=== PATIENT | female | born 1965 | race Caucasian/White ===

== ENCOUNTER 2020-06-19 09:53 | Outpatient (REF) | payer OTHER, SELFPAY ==
--- NOTE | ~2020-06-19 | MM_ITS ---
EXAMINATION: MM SCREENING DIGITAL BREAST TOMOSYNTHESIS, BILATERAL CLINICAL INFORMATION: Screening. Asymptomatic. The lifetime risk of breast cancer based on the Tyrer-Cuzick Model is 17%. COMPARISON: Mammography: 10/01/2018, 07/26/2017, 07/25/2016 TECHNIQUE: Digital breast tomosynthesis is performed in both the craniocaudal and mediolateral oblique views along with computer-aided detection (CAD). Synthesized 2D images are generated from the tomosynthesis. Additional right CC view is provided. FINDINGS: There are scattered areas of fibroglandular density (ACR BI-RADS breast composition Category b). There are no significant masses, abnormal calcifications, or other abnormalities. Breast tissue composition borders on heterogeneously dense in the anterior breasts. The axilla and skin contours are unremarkable. There is biopsy clip marker again noted left breast upper outer quadrant. No significant changes. MM/MM tomosynthesis screening BI IMPRESSION: No mammographic evidence of malignancy. ASSESSMENT: BI-RADS 1: Negative RECOMMENDATION: Routine annual mammography screening. This patient's information was entered into a reminder system with a target due date for their next mammogram.
== END 2020-06-19 09:54 | disposition home or self-care (01) ==
LOC: HO.MAMMO 09:53
PROVIDERS: Visit Provider Internal Medicine
DX: Z12.31 Encounter for screening mammogram for malignant neoplasm of breast (principal)
CPT/HCPCS: 77063; 77067

== ENCOUNTER 2021-06-25 07:57 | Outpatient (REF) | payer OTHER, SELFPAY ==
--- NOTE | ~2021-06-25 | MM_ITS ---
EXAMINATION: MM SCREENING DIGITAL BREAST TOMOSYNTHESIS, BILATERAL CLINICAL INFORMATION: Screening. Asymptomatic. The lifetime risk of breast cancer based on the Tyrer-Cuzick Model is 17.8%. COMPARISON: Mammography: June 19, 2020 and studies dating back to February 17, 2014 TECHNIQUE: Digital breast tomosynthesis is performed in both the craniocaudal and mediolateral oblique views along with computer-aided detection (CAD). Synthesized 2D images are generated from the tomosynthesis. FINDINGS: There are scattered areas of fibroglandular density (ACR BI-RADS breast composition Category b). There are no significant masses, abnormal calcifications, or other abnormalities. MM/MM tomosynthesis screening BI IMPRESSION: There are no significant changes from prior study. ASSESSMENT: BI-RADS 1: Negative RECOMMENDATION: Routine annual mammography screening. This patient's information was entered into a reminder system with a target due date for their next mammogram.
== END 2021-06-25 07:58 | disposition home or self-care (01) ==
LOC: HO.MAMMO 07:57
PROVIDERS: PCP Internal Medicine; Visit Provider Internal Medicine
DX: Z12.31 Encounter for screening mammogram for malignant neoplasm of breast (principal)
CPT/HCPCS: 77063; 77067

== ENCOUNTER 2021-11-09 07:21 | Outpatient (REF) | payer OTHER, SELFPAY ==
[2021-11-09 11:28] LABS: Appearance Urine HAZY; Color Urine YELLOW; Glucose Urine UA NEG (NEG); Leukocyte Esterase Urine NEG (NEG); Nitrite Urine NEG (NEG); Urine Blood NEG (NEG); Urine Ketones NEG (NEG); Urine Protein NEG (NEG-TRACE)
[2021-11-09 11:30] LABS: MANUAL DIFF FLAG NO
[2021-11-09 11:41] LABS: Basophils Absolute Auto 0.1 X10*3/uL (0.0-0.2); Basophils Percent Auto 0.9 % (0-2); Eosinophils Absolute Auto 0.2 X10*3/uL (0.0-0.4); Eosinophils Percent Auto 3.6 % (0-4); Hematocrit 45.2 % (37.0-47.0); Imm Gran Abs Auto 0.01 X10*3/uL (0.00-0.03); Imm Gran Pct Auto 0.2 % (0.0-0.4); Lymphocytes Absolute Auto 1.9 X10*3/uL (1.2-4.9); Lymphocytes Percent Auto 35.8 % (20-40); Mean Corpuscular HGB Conc 33.2 g/dl (31.0-35.0); Mean Corpuscular Volume 93.4 fL (80.0-98.0); Mean Platelet Volume 10.7 fL (9.4-12.3); Monocytes Absolute Auto 0.5 X10*3/uL (0.1-1.2); Monocytes Percent Auto 9.6 % (2-11); Neutrophils Absolute Auto 2.7 x10*3/uL (2.0-8.3); Neutrophils Percent Auto 49.9 % (45-73); Platelet Count 299 X10*3/uL (160-400); Red Blood Count 4.84 X10*6/uL (4.20-5.50); Red Cell Distribution Width 11.7 % (11.0-16.0); White Blood Count 5.3 X10*3/uL (4.8-10.8)
[2021-11-09 11:55] LABS: Mucus Urine 1+ /LPF; RBC Urine 0-2 /HPF (0); Squamous Epithelial Cell Urine 1+ /LPF; WBC Urine 0 /HPF (0-4)
[2021-11-09 14:25] LABS: Thyroid Stimulating Hormone 5.82 uIU/mL (0.32-4.0); Vitamin D 25-OH Total 48.7 ng/mL (>30)
[2021-11-09 14:44] LABS: Alanine Aminotransferase 12 U/L (0-31); Albumin Level 4.2 g/dL (3.5-5.0); Alkaline Phosphatase 68 U/L (39-117); Anion Gap 14 (12-20); Aspartate Amino Transferase 19 U/L (5-31); Bilirubin Total 0.8 mg/dL (0.0-1.0); Blood Urea Nitrogen 16 mg/dL (9-16); Calcium 9.7 mg/dL (8.4-10.2); Carbon Dioxide 30 mmol/L (22-29); Chloride 102 mmol/L (96-108); Cholesterol 206 mg/dL; Estimated Glomerular Filt Rate > 60; Glucose Fasting 115 mg/dL (60-99); HDL Cholesterol 46 mg/dL; LDL Cholesterol Calculated 127 mg/dl; Sodium 142 mmol/L (135-145); Triglycerides 165 mg/dL
== END 2021-11-09 07:22 | disposition home or self-care (01) ==
LOC: HO.HMGCLDS 07:21
PROVIDERS: PCP Internal Medicine; Visit Provider Internal Medicine
DX: Z00.00 Encounter for general adult medical examination without abnormal findings (principal); I10 Essential (primary) hypertension; E78.00 Pure hypercholesterolemia, unspecified; E03.9 Hypothyroidism, unspecified; E55.9 Vitamin D deficiency, unspecified; E66.01 Morbid (severe) obesity due to excess calories
CPT/HCPCS: 36415; 80053; 80061; 81001; 82306; 84443; 85025

== ENCOUNTER 2022-07-01 08:52 | Outpatient (REF) | payer OTHER, SELFPAY ==
--- NOTE | ~2022-07-01 | MM_ITS ---
EXAMINATION: MM SCREENING DIGITAL BREAST TOMOSYNTHESIS, BILATERAL CLINICAL INFORMATION: Screening. Asymptomatic. The lifetime risk of breast cancer based on the Tyrer-Cuzick Model is 16%. COMPARISON: Mammography: 06/25/2021, 06/19/2020, 10/01/2018 TECHNIQUE: Digital breast tomosynthesis is performed in both the craniocaudal and mediolateral oblique views along with computer-aided detection (CAD). Synthesized 2D images are generated from the tomosynthesis. FINDINGS: The breasts are heterogeneously dense, which may obscure small masses (ACR BI-RADS breast composition Category c). Dense breast composition is predominantly anterior breasts. Parenchymal pattern is similar to prior studies and there is no developing density or interval mass or architectural abnormality. No abnormal calcifications. Biopsy clip marker again seen anterior upper outer left breast. The axilla and skin contours are unremarkable. MM/MM tomosynthesis screening BI IMPRESSION: No mammographic evidence of malignancy. ASSESSMENT: BI-RADS 1: Negative RECOMMENDATION: Routine annual mammography screening. This patient's information was entered into a reminder system with a target due date for their next mammogram.
== END 2022-07-01 08:53 | disposition home or self-care (01) ==
LOC: HO.MAMMO 08:52
PROVIDERS: PCP Internal Medicine; Visit Provider Internal Medicine
DX: Z12.31 Encounter for screening mammogram for malignant neoplasm of breast (principal)
CPT/HCPCS: 77063; 77067

== ENCOUNTER 2022-10-02 08:27 | Outpatient (REF) | payer OTHER, SELFPAY ==
[2022-10-02 11:31] LABS: MANUAL DIFF FLAG NO
[2022-10-02 11:43] LABS: Basophils Absolute Auto 0.1 X10*3/uL (0.0-0.2); Eosinophils Absolute Auto 0.4 X10*3/uL (0.0-0.4); Eosinophils Percent Auto 6.3 % (0-4); Hemoglobin 14.8 g/dl (12.0-16.0); Imm Gran Abs Auto 0.02 X10*3/uL (0.00-0.03); Imm Gran Pct Auto 0.3 % (0.0-0.4); Lymphocytes Absolute Auto 2.1 X10*3/uL (1.2-4.9); Mean Corpuscular HGB Conc 32.9 g/dl (31.0-35.0); Mean Corpuscular Hemoglobin 30.3 pg (27.0-33.0); Mean Platelet Volume 10.7 fL (9.4-12.3); Monocytes Absolute Auto 0.5 X10*3/uL (0.1-1.2); Monocytes Percent Auto 8.1 % (2-11); Neutrophils Absolute Auto 3.1 x10*3/uL (2.0-8.3); Neutrophils Percent Auto 50.3 % (45-73); Platelet Count 271 X10*3/uL (160-400); Red Blood Count 4.89 X10*6/uL (4.20-5.50); Red Cell Distribution Width 11.9 % (11.0-16.0); White Blood Count 6.2 X10*3/uL (4.8-10.8)
[2022-10-02 12:13] LABS: Alanine Aminotransferase 10 U/L (0-31); Albumin Level 3.9 g/dL (3.5-5.0); Alkaline Phosphatase 65 U/L (39-117); Anion Gap 12 (12-20); Aspartate Amino Transferase 18 U/L (5-31); Bilirubin Total 0.9 mg/dL (0.0-1.0); Blood Urea Nitrogen 17 mg/dL (9-16); Calcium 9.9 mg/dL (8.4-10.2); Carbon Dioxide 29 mmol/L (22-29); Chloride 104 mmol/L (96-108); Cholesterol 190 mg/dL; Estimated Glomerular Filt Rate > 60; Glucose Fasting 118 mg/dL (60-99); HDL Cholesterol 46 mg/dL; LDL Cholesterol Calculated 113 mg/dl; Potassium 3.9 mmol/L (3.3-5.1); Sodium 141 mmol/L (135-145); Total Protein 6.9 g/dL (6.5-8.0); Triglycerides 159 mg/dL
[2022-10-02 12:31] LABS: Thyroid Stimulating Hormone 2.98 uIU/mL (0.32-4.0); Vitamin D 25-OH Total 75.3 ng/mL (>30)
== END 2022-10-02 08:28 | disposition home or self-care (01) ==
LOC: HO.HMGCLDS 08:27
PROVIDERS: PCP Internal Medicine; Visit Provider Internal Medicine
DX: I10 Essential (primary) hypertension (principal); E78.00 Pure hypercholesterolemia, unspecified; E03.9 Hypothyroidism, unspecified; E55.9 Vitamin D deficiency, unspecified; E66.01 Morbid (severe) obesity due to excess calories
CPT/HCPCS: 36415; 80053; 80061; 82306; 84443; 85025

== ENCOUNTER 2023-07-07 07:56 | Outpatient (REF) | payer OTHER, SELFPAY ==
--- NOTE | ~2023-07-07 | MM_ITS ---
EXAMINATION: MM SCREENING DIGITAL BREAST TOMOSYNTHESIS, BILATERAL CLINICAL INFORMATION: Screening. Asymptomatic. COMPARISON: Mammography: This study is compared with prior exams dating back to 2019. TECHNIQUE: Digital breast tomosynthesis is performed in both the craniocaudal and mediolateral oblique views along with computer-aided detection (CAD). Synthesized 2D images are generated from the tomosynthesis. FINDINGS: The breasts are heterogeneously dense, which may obscure small masses (ACR BI-RADS breast composition Category c). There are no significant masses, abnormal calcifications, or other abnormalities. There is a tissue marker in the lateral aspect of the left breast from prior benign percutaneous biopsy. MM/MM tomosynthesis screening BI IMPRESSION: No mammographic evidence of malignancy. ASSESSMENT: BI-RADS BI-RADS 2 - Benign Findings RECOMMENDATION: Routine annual mammography screening. 1 year F/U This examination should not preclude the clinical evaluation of a suspicious palpable abnormality. This patient's information was entered into a reminder system with a target due date for their next mammogram.
== END 2023-07-07 07:57 | disposition home or self-care (01) ==
LOC: HO.MAMMO 07:56
PROVIDERS: PCP Internal Medicine; Visit Provider Internal Medicine
DX: Z12.31 Encounter for screening mammogram for malignant neoplasm of breast (principal)
CPT/HCPCS: 77063; 77067

== ENCOUNTER → 2023-07-07 08:15 | Outpatient (BNV) | payer OTHER, SELFPAY | PROVIDERS: PCP Internal Medicine; Visit Provider Radiology Diagnostic Radiology | DX: Z12.31 Encounter for screening mammogram for malignant neoplasm of breast (principal) | CPT/HCPCS: 77063; 77067 ==

== ENCOUNTER 2023-11-20 07:54 | Outpatient (REF) | payer SELFPAY ==
[2023-11-20 08:13] LABS: MANUAL DIFF FLAG NO
[2023-11-20 08:55] LABS: Basophils Absolute Auto 0.1 X10*3/uL (0.0-0.2); Basophils Percent Auto 1.2 % (0-2); Eosinophils Absolute Auto 0.5 X10*3/uL (0.0-0.4); Hematocrit 45.2 % (37.0-47.0); Hemoglobin 15.5 g/dl (12.0-16.0); Imm Gran Abs Auto 0.01 X10*3/uL (0.00-0.03); Imm Gran Pct Auto 0.1 % (0.0-0.4); Lymphocytes Absolute Auto 2.2 X10*3/uL (1.2-4.9); Lymphocytes Percent Auto 32.4 % (20-40); Mean Corpuscular HGB Conc 34.3 g/dl (31.0-35.0); Mean Corpuscular Hemoglobin 31.3 pg (27.0-33.0); Mean Corpuscular Volume 91.1 fL (80.0-98.0); Mean Platelet Volume 10.4 fL (9.4-12.3); Monocytes Absolute Auto 0.6 X10*3/uL (0.1-1.2); Monocytes Percent Auto 9.1 % (2-11); Neutrophils Absolute Auto 3.4 x10*3/uL (2.0-8.3); Neutrophils Percent Auto 50.2 % (45-73); Platelet Count 306 X10*3/uL (160-400); Red Blood Count 4.96 X10*6/uL (4.20-5.50); Red Cell Distribution Width 11.7 % (11.0-16.0); White Blood Count 6.7 X10*3/uL (4.8-10.8)
[2023-11-20 09:56] LABS: Alanine Aminotransferase 13 U/L (0-31); Albumin Level 4.3 g/dL (3.5-5.0); Alkaline Phosphatase 81 U/L (39-117); Anion Gap 13 (12-20); Aspartate Amino Transferase 20 U/L (5-31); Bilirubin Total 0.9 mg/dL (0.0-1.0); Blood Urea Nitrogen 16 mg/dL (9-16); Calcium 9.8 mg/dL (8.4-10.2); Carbon Dioxide 30 mmol/L (22-29); Chloride 100 mmol/L (96-108); Cholesterol 201 mg/dL (<200); Estimated Glomerular Filt Rate > 60; Glucose Fasting 156 mg/dL (60-99); HDL Cholesterol 41 mg/dL (>40); LDL Cholesterol Calculated 121 mg/dL (<100); Sodium 140 mmol/L (135-145); Triglycerides 198 mg/dL (<150)
[2023-11-20 10:17] LABS: Thyroid Stimulating Hormone 2.74 uIU/mL (0.32-4.0)
== END 2023-11-20 07:55 | disposition home or self-care (01) ==
LOC: HO.LAB 07:54
PROVIDERS: PCP Internal Medicine; Visit Provider Internal Medicine
DX: I10 Essential (primary) hypertension (principal); E78.00 Pure hypercholesterolemia, unspecified; E03.9 Hypothyroidism, unspecified; E66.01 Morbid (severe) obesity due to excess calories; E55.9 Vitamin D deficiency, unspecified; Z91.09 Other allergy status, other than to drugs and biological substances
CPT/HCPCS: 36415; 80053; 80061; 84443; 85025

== ENCOUNTER 2024-01-19 06:53 | Outpatient (REF) | payer OTHER, SELFPAY ==
[2024-01-19 11:08] LABS: MANUAL DIFF FLAG NO
[2024-01-19 11:10] LABS: Basophils Absolute Auto 0.1 X10*3/uL (0.0-0.2); Basophils Percent Auto 1.5 % (0-2); Eosinophils Absolute Auto 0.4 X10*3/uL (0.0-0.4); Eosinophils Percent Auto 7.4 % (0-4); Hemoglobin 13.6 g/dl (12.0-16.0); Imm Gran Abs Auto 0.01 X10*3/uL (0.00-0.03); Imm Gran Pct Auto 0.2 % (0.0-0.4); Lymphocytes Absolute Auto 1.7 X10*3/uL (1.2-4.9); Lymphocytes Percent Auto 32.3 % (20-40); Mean Corpuscular HGB Conc 33.2 g/dl (31.0-35.0); Mean Corpuscular Hemoglobin 30.6 pg (27.0-33.0); Mean Corpuscular Volume 92.3 fL (80.0-98.0); Mean Platelet Volume 10.6 fL (9.4-12.3); Monocytes Absolute Auto 0.4 X10*3/uL (0.1-1.2); Monocytes Percent Auto 8.1 % (2-11); Neutrophils Absolute Auto 2.7 x10*3/uL (2.0-8.3); Neutrophils Percent Auto 50.5 % (45-73); Platelet Count 266 X10*3/uL (160-400); Red Blood Count 4.44 X10*6/uL (4.20-5.50); Red Cell Distribution Width 11.9 % (11.0-16.0); White Blood Count 5.3 X10*3/uL (4.8-10.8)
[2024-01-19 11:19] LABS: Rheumatoid Factor < 13.0 IU/mL (<15.0)
[2024-01-19 11:22] LABS: Estimated Average Glucose 128 mg/dL; Hemoglobin A1c % 6.1 % (<6.0); Total Hemoglobin (HGBA1C) 3351.9231 umol/L
[2024-01-19 11:26] LABS: Appearance Urine Clear; Color Urine Yellow; Glucose Urine UA Negative (Negative); Leukocyte Esterase Urine Negative (Negative); Nitrite Urine Negative (Negative); Urine Blood Negative (Negative); Urine Ketones Negative (Negative); Urine Protein Negative (Neg-Trace)
[2024-01-19 11:33] LABS: Bacteria Urine None Seen (None Seen); Hyaline Casts Urine 0-2 /LPF (0-2); RBC Urine 0-2 /HPF (0-2); WBC Urine 0-5 /HPF (0-5)
[2024-01-19 11:37] LABS: Alanine Aminotransferase 9 U/L (0-31); Albumin Level 3.7 g/dL (3.5-5.0); Alkaline Phosphatase 66 U/L (39-117); Anion Gap 12 (12-20); Aspartate Amino Transferase 17 U/L (5-31); Bilirubin Total 0.6 mg/dL (0.0-1.0); Blood Urea Nitrogen 12 mg/dL (9-16); C Reactive Protein < 0.10 mg/dL (< or = 0.50); Calcium 9.3 mg/dL (8.4-10.2); Carbon Dioxide 29 mmol/L (22-29); Chloride 105 mmol/L (96-108); Cholesterol 160 mg/dL (<200); Estimated Glomerular Filt Rate > 60; Glucose Fasting 125 mg/dL (60-99); HDL Cholesterol 39 mg/dL (>40); LDL Cholesterol Calculated 98 mg/dL (<100); Potassium 3.1 mmol/L (3.3-5.1); Sodium 143 mmol/L (135-145); Total Protein 6.5 g/dL (6.5-8.0); Triglycerides 115 mg/dL (<150)
[2024-01-19 11:42] LABS: Thyroid Stimulating Hormone 1.73 uIU/mL (0.32-4.0)
[2024-01-19 11:59] LABS: Erythrocyte Sedimentation Rate 7 MM/HR (0-20)
[2024-01-19 12:00] LABS: Creatinine Urine 129.31 mg/dL; Microalbumin Urine < 5.0 mg/L
== END 2024-01-19 06:54 | disposition home or self-care (01) ==
LOC: HO.HMGCLDS 06:53
PROVIDERS: PCP Internal Medicine; Visit Provider Internal Medicine
DX: Z00.00 Encounter for general adult medical examination without abnormal findings (principal); I10 Essential (primary) hypertension; E78.00 Pure hypercholesterolemia, unspecified; E03.9 Hypothyroidism, unspecified; E55.9 Vitamin D deficiency, unspecified; Z91.09 Other allergy status, other than to drugs and biological substances; E66.01 Morbid (severe) obesity due to excess calories
CPT/HCPCS: 36415; 80053; 80061; 81001; 82043; 82306; 82570; 83036; 84443; 85025; 85652; 86140; 86431

== ENCOUNTER 2024-04-15 09:51 | Outpatient (AMB) | payer OTHER, SELFPAY ==
--- NOTE | 2024-04-15 10:26 | AM.OFFWIN_ITS ---
Intake Vital Signs 04/15/24 10:27 Height 5 ft 4 in Weight 266 lb BMI 45.7 BP 100/70 Blood Pressure Location Rt brachial Position Sitting Pulse 96 Pulse Source Pulse Oximeter Temp 98.5 F Temp Source Oral Pulse Oximetry (%) 96 Oxygen Delivery Method Room Air Intake Visit Reasons: EP-rt knee, garcia, ankle pain, lt side neck lump Intake Note: Pt is here today c/o Rt knee pain (no injury noted) x2wks Patient Tobacco Use Status: Never used Tobacco Allergies No Known Allergies Allergy (Verified 04/15/24 10:29) HPI HPI Comments History of Present Illness Details She presents to office with R knee/lower leg pain Saw PCP in January for leg pain bilaterally; negative blood work for rheumatoid arthritis which was negative Has been taking 2 Aleeve BID She said R knee pain since xmas Worse when sitting in car Better with elevated More still in the morning No imaging 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 Diaz in July as a new pt She mentioned a mass that her dentist found on the L side of her neck pprox 4 months ago She denies pain or change in size. She has never noticed it so unsure how long it was present before then Has not had it seen No other associated symptoms PFSH Social History (System 05/19/21 @ 15:19 by Joy Hernandez) Patient Tobacco Use Status: Never used Tobacco Review of Systems Const Denies chills and Denies fever(s) ENT Denies nasal discharge Card Denies chest pain Resp Denies cough Musc Reports arthralgias (R knee with radiation into RLE to ankle), Denies numbness and Denies tingling Skin/Breast Denies rash, Denies skin pain and Denies sores Neuro Denies numbness and Denies tingling Physical Exam Vital Signs: Last Vital Signs Temp 98.5 F 04/15/24 10:27 Pulse 96 04/15/24 10:27 BP 100/70 04/15/24 10:27 Pulse Ox 96 04/15/24 10:27 Oxygen Delivery Method Room Air 04/15/24 10:27 BMI result Body Mass Index 45.7 General: Non-toxic, NAD. Speaking full sentences. Skin: Warm dry throughout Eye: EOMI HENT: Airway patent. Uvula midline. No pharyngeal erythema or edema. 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 One non-tender, non-mobile approx 1cm x 1cm circular hard mass palpated to L side of neck just inferior to mid L mandible. Non-tender. Respiratory: No respiratory distress Cardiac: RRR. No calf tenderness or pitting edema. DP pulse intact RLE MSK: + full ROM L knee with flexion/extendion and no palpable tenderness R knee + tenderness to palpation medial and lateral joint line. + flexion to 90 degrees and full extension. No R ankle tendersss. + full ROM digits R foot without parathesias. Neurology: Alert. No aphasia or facial droop. Gait without abnormality Psych: Good mood and affect Assessment & Plan Assessment & Plan (1) Knee pain: Code(s): M25.569 - Pain in unspecified knee Qualifiers: Chronicity: acute Laterality: right Qualified Code(s): M25.561 - Pain in right knee Plan: Patient seen and evaluated. Xray R knee: arthritis Gave oj wrap Given ortho referral Discussed aleeve filtered through kidneys so caution overuse Rest, ice, elevate Patient gave verbal understanding and had no additional questions or concerns at time of discharge All questions answered (2) Neck mass: Code(s): R22.1 - Localized swelling, mass and lump, neck Plan: Sent note to Dr. Diaz to follow up sooner with pt for most likely needed imaging. Pt aware and will wait for PCP call. Orders: Referrals Orthopedics Referral M25.561 - Pain in right knee Coding Level of Care Code Est Pt Level 3 (29790) Diagnoses Acute pain of right knee M25.561 Chronicity: acute Laterality: right Neck mass R22.1
[2024-04-15 10:27] VITALS: BP 100/70; PULSE 96; TEMP 36.9; O2SAT 96; BMI 45.7
== END 2024-04-15 11:17 | disposition home or self-care (01) ==
PROVIDERS: PCP Internal Medicine; Visit Provider Physician Assistant
DX: M25.561 Pain in right knee (principal); R22.1 Localized swelling, mass and lump, neck

== ENCOUNTER 2024-04-15 09:51 | Outpatient (REF) | payer OTHER, SELFPAY ==
--- NOTE | ~2024-04-15 | XR_ITS ---
EXAMINATION: XR KNEE, RIGHT CLINICAL INFORMATION: M25.569 - Pain in unspecified knee COMPARISON: None available. TECHNIQUE: Four views of the right knee. FINDINGS: There is loss of tricompartment joint space with periarticular spurring in the lateral and patellofemoral compartments. There is no loose body. There is no visible acute fracture, dislocation or subluxation seen. There is no joint effusion. XR/XR knee RT 4V IMPRESSION: Degenerative arthritic changes right knee. No acute fracture or dislocation seen. Electronically signed by: Jesu Phillips MD 04/15/2024 11:59 AM EST
== END 2024-04-15 09:52 | disposition home or self-care (01) ==
LOC: HO.HMGCX 09:51
PROVIDERS: PCP Internal Medicine; Visit Provider Physician Assistant
DX: M25.561 Pain in right knee (principal); R22.1 Localized swelling, mass and lump, neck
CPT/HCPCS: 73564

== ENCOUNTER → 2024-04-15 10:52 | Outpatient (BNV) | payer OTHER, SELFPAY | PROVIDERS: PCP Internal Medicine; Visit Provider Radiology Diagnostic Radiology | DX: M17.11 Unilateral primary osteoarthritis, right knee (principal) | CPT/HCPCS: 73564 ==

== ENCOUNTER 2024-04-22 14:45 | Outpatient (AMB) | payer OTHER, SELFPAY ==
--- NOTE | 2024-04-22 14:52 | A.OFFPC_ITS ---
Vital Signs 04/22/24 15:01 Height 5 ft 3.25 in Weight 268 lb BMI 47.1 BP 120/70 Blood Pressure Location Rt brachial Pulse 84 Pulse Source Pulse Oximeter Temp 97.5 F Pulse Oximetry (%) 96 Intake Visit Reasons: L Submandibular mass Intake Note: here for left submandibular mass and would like tovknow what to try for pain management of the right knee Allergies No Known Allergies Allergy (Verified 04/22/24 15:30) Medication List - Last Reconciled 04/22/24 by Bolivar Katz MD aspirin 81 mg PO DAILY atorvastatin 20 mg PO DAILY cetirizine 10 mg PO DAILY ergocalciferol (vitamin D2) 1,250 mcg PO QWEEK famotidine 20 mg PO DAILY levothyroxine mcg PO montelukast 10 mg PO DAILY multivitamin 1 tab PO DAILY triamterene-hydrochlorothiazid 75-50 mg 1 tab PO DAILY PFSH Medical History (Updated 04/22/24 @ 15:34 by Bolivar Katz MD) Essential hypertension Allergic rhinitis Acquired hypothyroidism Social History Patient Tobacco Use Status: Never used Tobacco Physical exam (Primary Care) Vital Signs: Last Vital Signs Temp 97.5 F 04/22/24 15:01 Pulse 84 04/22/24 15:01 BP 120/70 04/22/24 15:01 Pulse Ox 96 04/22/24 15:01 BMI result Body Mass Index 47.1 Tobacco/Smoking Status: Tobacco use Status Patient Tobacco Use Status Never used Tobacco 04/22/24 14:53 Coding Level of Care Code Est Pt Level 4 (97297) Complex EM visit Add On G2211 Diagnoses Swelling of submandibular gland R60.0 Neck mass R22.1 Essential hypertension I10 Allergic rhinitis J30.9 Acquired hypothyroidism E03.9 Acute pain of right knee M25.561 Chronicity: acute Laterality: right Assessment & Plan Assessment & Plan (1) Swelling of submandibular gland: Code(s): R60.0 - Localized edema Plan: A stat US of the neck has been requested. Further work based on the result. In addition BW has been ordered (2) Neck mass: Code(s): R22.1 - Localized swelling, mass and lump, neck Category: Medical Plan: As above (3) Essential hypertension: Code(s): I10 - Essential (primary) hypertension Category: Medical Plan: Continue medications at same dosage. (4) Allergic rhinitis: Code(s): J30.9 - Allergic rhinitis, unspecified Category: Medical Plan: Continue medications at same dosage. (5) Acquired hypothyroidism: Code(s): E03.9 - Hypothyroidism, unspecified Category: Medical Plan: BW ordered. Continue meds at same dosage. (6) Knee pain: Code(s): M25.569 - Pain in unspecified knee Category: Medical Qualifiers: Chronicity: acute Laterality: right Qualified Code(s): M25.561 - Pain in right knee Plan: X ray images revd. DJD changes noted. Add meloxicam to the regimen. Plan History of Present Illness The patient is a 59-year-old female presenting with a neck mass. She first became aware of the mass approximately five months ago after it was noted by a dental hygienist during a teeth cleaning. The mass is located on the left side of her neck. She reports no associated pain, discomfort, difficulty swallowing, or weight loss. There has been no change in size or symptoms. She delayed seeking medical evaluation, initially addressing other health concerns. The patient has a history of essential hypertension and hyperlipidemia, for which she is on medication, and she is currently undergoing evaluation for knee pain. 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 - No other relevant social determinants of health discussed Review of Systems - Head & Neck: Reports dryness in the mouth, attributed to allergy medications Physical Exam General: Appearance normal, both eyes and all related structures Nutritional Appearance: Well nourished Orientation/consciousness: Patient oriented x3 Limitations: No limitations Head: Normal to inspection Neck: Mass on the left side, normal visual inspection otherwise Chest: Normal palpation of entire chest wall Respiratory: Normal respiratory effort Neurology: Patient oriented x3 Results Plan - Evaluate the neck mass further for possible diagnostic imaging and referral based on initial clinical assessment - Continue current regimen for managing essential hypertension and hyperlipid emia - Address knee pain through appropriate orthopedic consultation or imaging as deemed necessary - Monitor for any changes or progression in the identified neck mass Patient was informed and verbally consented to the use of an ambient scribe for clinic note documentation during this visit. Discussion Notes The patient and I discussed the current findings regarding the neck mass. I explained that despite the lack of symptomatic activity such as pain or weight loss, further evaluation, possibly including imaging, may be needed for a definitive diagnosis. We agreed to continue management of her hypertension and hyperlipidemia with her current medication regimen. I informed her that further assessment of her knee pain would occur as needed, potentially involving imaging or an orthopedic referral. She understood the plan and agreed to proceed with the outlined steps. Patient Instructions - Monitor for any changes in size or symptoms of the neck mass - Continue taking medications as prescribed for hypertension and hyperlipidemia - Report any new symptoms or changes, particularly with knee pain - Follow up as needed based on any changes or new symptoms Orders: Orders US soft tiss head and/or neck Today R60.0 - Localized edema
[2024-04-22 15:01] VITALS: BP 120/70; PULSE 84; TEMP 36.4; O2SAT 96; BMI 47.1
== END 2024-04-22 15:25 | disposition home or self-care (01) ==
LOC: HO.HMCSH 14:45
PROVIDERS: PCP Internal Medicine; Visit Provider Internal Medicine
DX: R22.1 Localized swelling, mass and lump, neck (principal); I10 Essential (primary) hypertension; J30.9 Allergic rhinitis, unspecified; E03.9 Hypothyroidism, unspecified; M25.561 Pain in right knee

== ENCOUNTER 2024-04-24 14:11 | Outpatient (REF) | payer OTHER, SELFPAY ==
--- NOTE | ~2024-04-24 | US_ITS ---
EXAMINATION: US SOFT TISSUE HEAD AND/OR NECK CLINICAL INFORMATION: Localized edema submandibular gland on the left. COMPARISON: No prior available for comparison. TECHNIQUE: Linear transducer chung-scale and color Doppler examination with attention to the region of the left submandibular in the region of symptomatology. FINDINGS: There is heterogeneity in the left submandibular gland, with mildly ill-defined margins. There are approximately 3 hypoechoic, somewhat indistinct border hypervascular foci within the left gland, the largest measuring 2.2 x 0.8 x 1.9 cm. There is no abnormal fluid collection. There are left mid neck cervical chain lymph nodes present, the largest measuring 2.3 x 0.9 x 1.4 cm, maintaining reniform shape, preserved fatty jose, presumably reactive but nonspecific. US/US soft tiss head and/or neck IMPRESSION: 1. Heterogeneity of the left submandibular gland with approximately 3 intraglandular hypoechoic vascular masses measuring up to 2.2 x 0.8 x 1.9 cm. Differential includes lymph nodes, although etiologies such as Warthin tumors, benign mixed tumors, or submandibular malignancy are not excluded. Recommend correlating with contrast enhanced CT of the neck. 2. Reactive appearing left neck lymphadenopathy. 3. No fluid collection identified Electronically signed by: Pal Enriquez MD 04/24/2024 04:44 PM [facility] [place]
== END 2024-04-24 14:12 | disposition home or self-care (01) ==
LOC: HO.US 14:11
PROVIDERS: PCP Internal Medicine; Visit Provider Internal Medicine
DX: R60.0 Localized edema (principal)
CPT/HCPCS: 76536

== ENCOUNTER → 2024-04-24 14:13 | Outpatient (BNV) | payer OTHER, SELFPAY | PROVIDERS: PCP Internal Medicine; Visit Provider Radiology Diagnostic Radiology | DX: K11.8 Other diseases of salivary glands (principal) | CPT/HCPCS: 76536 ==

== ENCOUNTER 2024-05-03 06:41 | Outpatient (REF) | payer OTHER, SELFPAY ==
[2024-05-03 11:58] LABS: MANUAL DIFF FLAG NO
[2024-05-03 12:06] LABS: Basophils Absolute Auto 0.1 X10*3/uL (0.0-0.2); Basophils Percent Auto 1.2 % (0-2); Eosinophils Absolute Auto 0.4 X10*3/uL (0.0-0.4); Eosinophils Percent Auto 5.7 % (0-4); Hematocrit 42.6 % (37.0-47.0); Hemoglobin 14.1 g/dl (12.0-16.0); Imm Gran Abs Auto 0.01 X10*3/uL (0.00-0.03); Imm Gran Pct Auto 0.2 % (0.0-0.4); Lymphocytes Absolute Auto 1.6 X10*3/uL (1.2-4.9); Lymphocytes Percent Auto 23.3 % (20-40); Mean Corpuscular HGB Conc 33.1 g/dl (31.0-35.0); Mean Corpuscular Volume 93.6 fL (80.0-98.0); Mean Platelet Volume 10.4 fL (9.4-12.3); Monocytes Absolute Auto 0.7 X10*3/uL (0.1-1.2); Monocytes Percent Auto 10.2 % (2-11); Neutrophils Absolute Auto 3.9 x10*3/uL (2.0-8.3); Neutrophils Percent Auto 59.4 % (45-73); Platelet Count 280 X10*3/uL (160-400); Red Blood Count 4.55 X10*6/uL (4.20-5.50); Red Cell Distribution Width 12.2 % (11.0-16.0); White Blood Count 6.6 X10*3/uL (4.8-10.8)
[2024-05-03 12:22] LABS: Alanine Aminotransferase 21 U/L (0-31); Alkaline Phosphatase 66 U/L (39-117); Anion Gap 12 (12-20); Bilirubin Direct 0.3 mg/dL (0.0-0.5); Bilirubin Total 0.9 mg/dL (0.0-1.0); Blood Urea Nitrogen 15 mg/dL (9-16); Calcium 9.2 mg/dL (8.4-10.2); Carbon Dioxide 29 mmol/L (22-29); Chloride 103 mmol/L (96-108); Cholesterol 193 mg/dL (<200); Estimated Glomerular Filt Rate > 60; Glucose Fasting 112 mg/dL (60-99); Glucose Random 111 mg/dL (60-115); Potassium 3.5 mmol/L (3.3-5.1); Sodium 140 mmol/L (135-145); Total Protein 7.5 g/dL (6.5-8.0); Triglycerides 183 mg/dL (<150)
[2024-05-03 12:48] LABS: Erythrocyte Sedimentation Rate 14 MM/HR (0-20)
[2024-05-03 13:10] LABS: Aspartate Amino Transferase 26 U/L (5-31); HDL Cholesterol 46 mg/dL (>40); LDL Cholesterol Calculated 111 mg/dL (<100)
== END 2024-05-03 06:42 | disposition home or self-care (01) ==
LOC: HO.HMGCLDS 06:41
PROVIDERS: PCP Internal Medicine; Referring Provider Physician Assistant Medical; Visit Provider Internal Medicine
DX: Z00.00 Encounter for general adult medical examination without abnormal findings (principal); I10 Essential (primary) hypertension; M25.561 Pain in right knee
CPT/HCPCS: 36415; 80048; 80053; 80061; 80076; 82248; 85025; 85027; 85652

== ENCOUNTER 2024-05-05 15:19 | Outpatient (AMB) | payer OTHER, SELFPAY ==
--- NOTE | 2024-05-05 15:37 | A.OFFPC_ITS ---
Vital Signs 05/05/24 15:39 Height 5 ft 3.25 in Weight 266 lb 6 oz BMI 46.8 BP 126/72 Blood Pressure Location Lt brachial Position Sitting Pulse 94 Pulse Source Pulse Oximeter Temp 97.1 F Temp Source Skin Pulse Oximetry (%) 95 Oxygen Delivery Method Room Air Intake Visit Reasons: Pre-op Right eye 05/15/24 Intake Note: Patient is here for a Pre-op for Right eye scheduled with Dr Braswell (F:[phone]) on 05/15/24. Medical Laboratory Technologist Required: No Shop Mechanic: Not Required per policy Accompanied by: Self / Same As Patient Allergies No Known Allergies Allergy (Verified 05/05/24 16:18) Medication List - Last Reconciled 05/05/24 by Keesha Sanchez PA-C aspirin 81 mg PO DAILY atorvastatin 20 mg PO DAILY azithromycin For 250 mg dose pack: take 500 mg today (day 1), then 250 mg for 4 days (days 2-5) PO benzonatate 200 mg PO BID PRN cetirizine 10 mg PO DAILY 90 days ergocalciferol (vitamin D2) 1,250 mcg PO QWEEK famotidine 20 mg PO DAILY levothyroxine mcg PO loratadine-pseudoephedrine 5-120 mg ER (Claritin-D 12 Hour) 1 tab PO Q12H meloxicam 15 mg PO DAILY montelukast 10 mg PO DAILY multivitamin 1 tab PO DAILY triamterene-hydrochlorothiazid 75-50 mg 1 tab PO DAILY Tobacco use date assessed: 05/05/24 Dental Screening Dental Screen Date: 05/05/24 Did you have a dental visit in the last 12 months?: Yes Did you have a dental problem in the last 6 months where you did not have access to dental care?: No Was dental information given to patient?: Patient has dentist [facility] Medical History Essential hypertension Allergic rhinitis Acquired hypothyroidism Surgical History History of colonoscopy Social History Housing: House Alcohol intake: never Patient Tobacco Use Status: Never used Tobacco e-Cigarette/Vaping Use: Never Used Second Hand Smoke Exposure: No service: No Current occupational status: employed 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 1. Little interest or pleasure in doing things: not at all 2. Feeling down, depressed, or hopeless: not at all 3. Trouble falling or staying asleep, or sleeping too much: not at all 4. Feeling tired or having little energy: not at all 5. Poor appetite or overeating: not at all 6. Feeling bad about yourself - or that you are a failure or have let yourself or your family down: not at all 7. Trouble concentrating on things, such as reading the newspaper or watching television: not at all 8. Moving or speaking so slowly that other people could have noticed. Or the opposite - being so fidgety or restless that you have been moving around a lot more than usual: not at all 9. Thoughts that you would be better off or of hurting yourself in some way: not at all Total score: 0 Depression Screening Interpretation: Negative Depression Screening Done: Yes 56542 - PHQ-9 Billing: Yes Source: Developed by Drs. Slade Cartwright, Soraya Maldonado, Luis Miguel Ames and colleagues, with an educational mera from [employer]. Thrive Questionnaire Date Thrive assessed: 05/05/24 I am a: Patient What is your living situation today?: I have a steady place to live Within the past 12 months, did the food you bought not last and you didn't have the money to get more?: Never true Within the past 12 months, did you worry whether your food would run out before you got money to buy more?: Never true Do you have trouble paying for medicines?: No Do you have trouble getting transportation to medical appointments?: No Do you have trouble paying your heating and electricity bill?: No Do you have trouble taking care of your child, family member or friend?: No Do you have trouble with day-to-day activities such as bathing, preparing meals, shopping, managing finances, etc.?: No Are you currently unemployed and looking for a job?: No Are you interested in more education?: No Please select the resources that you would like help with: None Currently or been in a relationship where the following occur: No concerns reported THRIVE Score: 0 AUDIT C Alcohol Use Questionnaire (AUDIT-C) 1. How often do you have a drink containing alcohol?: Never Total Score: 0 Score Reviewed/Action Taken: Yes (Reviewed) LUCIEN-7 AMB Questionnaire LUCIEN-7 Date LUCIEN - 7 assessed: 05/05/24 Feeling nervous, anxious, or on edge: 0 = Not at all Not being able to stop or control worryin = Not at all Worrying too much about different things: 0 = Not at all Trouble relaxin = Not at all Being so restless that it is hard to sit still: 0 = Not at all Becoming easily annoyed or irritable: 0 = Not at all Feeling afraid as if something awful might happen: 0 = Not at all Total LUCIEN-7 score (0-4 normal; 5-9 mild; 10-14 moderate; 15-21 severe): 0 Source: Developed by Drs. Slade Cartwright, Soraya Maldonado, Luis Miguel Ames and colleagues, with an educational mera from [employer]. LUCIEN-7 Assessment Billing LUCIEN-7 Assessment Tool: LUCIEN-7 Assessment 31248 Physical exam (Primary Care) Vital Signs: Last Vital Signs Temp 97.1 F 05/05/24 15:39 Pulse 94 05/05/24 15:39 BP 126/72 05/05/24 15:39 Pulse Ox 95 05/05/24 15:39 Oxygen Delivery Method Room Air 05/05/24 15:39 BMI result Body Mass Index 46.8 Tobacco/Smoking Status: Tobacco use Status Tobacco use date assessed 05/05/24 05/05/24 15:45 Patient Tobacco Use Status Never used Tobacco 05/05/24 15:45 e-Cigarette/Vaping Use Never Used 05/05/24 15:45 PHQ-9: PHQ-9 Score PHQ-9: Total score 0 05/05/24 16:30 Depression Screening Interpretation: Negative Thrive Assessment: Date of Thrive Assessment Date Thrive assessed 05/05/24 05/05/24 15:45 Currently or been in a relationship where the following occur: No concerns reported Coding Level of Care Code Est Pt Level 4 (73607) Complex EM visit Add On G2211 Diagnoses Pre-op evaluation Z01.818 Eye swelling, right H57.89 Essential hypertension I10 Acquired hypothyroidism E03.9 Neck mass R22.1 Allergic rhinitis J30.9 Additional Codes LUCIEN-7 Assessment Billing - LUCIEN-7 Assessment Tool: LUCIEN-7 Assessment 58164 ([id number]) PHQ-9 - 11272 - PHQ-9 Billing: Yes ([id number]) Assessment & Plan Assessment & Plan (1) Pre-op evaluation: Code(s): Z01.818 - Encounter for other preprocedural examination Category: Medical (2) Eye swelling, right: Code(s): H57.89 - Other specified disorders of eye and adnexa Category: Medical (3) Essential hypertension: Code(s): I10 - Essential (primary) hypertension Category: Medical Plan: Blood pressure is controlled while the patient is currently on Traimterene- hydrochlorothiazide 75-50 mg tablet. Blood pressure 126/72 at goal today. Condition is chronic and stable continue to monitor. (4) Acquired hypothyroidism: Code(s): E03.9 - Hypothyroidism, unspecified Category: Medical Plan: Patient is currently on levothyroxine taking as prescribed. Last TSH level on 01/19/2024 1.73 which was within normal limits. Condition is chronic and stable will continue to monitor. (5) Neck mass: Code(s): R22.1 - Localized swelling, mass and lump, neck Category: Medical Plan: Submandibular mass of unknown origin. CT scan with soft tissue neck ordered. No airway issues or concerns. Condition is chronic and stable will continue to monitor. (6) Allergic rhinitis: Code(s): J30.9 - Allergic rhinitis, unspecified Category: Medical Plan: Condition is chronic and stable. Will send cleared and D. Plan Plan - Follow-up CAT scan for neck scheduled on 07 May to further investigate neck swelling. - Preoperative evaluation for 15 May surgery, including EKG. - Prescription of azithromycin Z-Elio for cold-related symptoms. - Prescription of Tessalon Perles for symptomatic relief of cough for nighttime use. - Claritin D to be used as necessary for allergy management. - Regarding preop clearance, the patient is acceptable risk for proposed surgery. Reviewed with the patient that no surgery is completely free of wrist and that this examination is to assist the surgeon and reviewing informed consent. Orders: Orders ECG 12 lead EKG Today Z01.818 - Encounter for other preprocedural examination Medications: New azithromycin For 250 mg dose pack: take 500 mg today (day 1), then 250 mg for 4 days (days 2-5) PO 6 tabs 0RF benzonatate 200 mg PO BID PRN 30 caps 0RF cough loratadine-pseudoephedrine 5-120 mg ER (Claritin-D 12 Hour) 1 tab PO Q12H 30 tabs 0RF Patient Instructions: Patient Instructions - Complete an EKG at the designated facility before surgery. - Do not consume food or drink three hours before the CAT scan on May 07. - Take the prescribed Tessalon Perles only at night. 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 - Inform me of any new swelling or difficulty breathing. - Attend all follow-up appointments and diagnostic tests as scheduled. Scribe Plan - Not visible on output: History of Present Illness The patient is a 59-year-old female presenting with for preop clearance for her right orbital swelling. She is scheduled for surgery on 05/15/2024 at [facility] with Dr. Ty MD. The swelling has been present for several months, and the underlying cause is currently being investigated. An initial hypothesis by an residence director suggested a possible autoimmune origin. A CT scan has been performed, and despite the appearance, cancer has not been ruled out, necessitating surgical intervention for definitive biopsy. The patient also has a history of thyroid dysfunction, classified as hypothyroidism, managed with levothyroxine. The patient is also experiencing symptoms consistent with a cold, such as a scratchy throat and considerable postnasal drip, with onset approximately one week prior. The patient reports a history of recurrent sinus and respiratory infections, commonly treated with azithromycin, yielding effective results. She also mentions allergies, which aggravate these respiratory issues, and has self- managed with [id number]-[id number] medications like Mucinex and occasionally Belem D. She has also observed episodes of respiratory distress during past infections. Social History - Marital status: - Medications: Regularly on aspirin, atorvastatin, cetirizine, montelukast, vitamin D, famotidine, levothyroxine, triamterene/hydrochlorothiazide - Family History: History of diabetes, hypertension, and retinopathy from diabetes in parents - Exercise: Limited by arthritis Review of Systems - HEENT: Reports persistent postnasal drip and scratchy throat. Denies any known drug allergies. - Respiratory: Denies current respiratory distress but reports a history of infections. - Musculoskeletal: Reports sore abdominal muscles due to persistent coughing. - Neurologic: Reports previous asthma now resolved. Physical Exam Appearance: Alert. Oriented X3. No acute distress. Head: Normal external exam. Normocephalic. Atraumatic. Eyes: Right eyelid's and eye swelling noted. Pupils are equal, round, and reactive to light. Extraocular movements intact. Conjunctiva and sclera normal. left Eyelids normal. Ears: External auditory canal normal. Tympanic membranes normal. Throat: Pharynx normal. Uvula midline. Moist mucous membranes. Neck: Normal inspection. Neck supple. Full range of motion. No adenopathy. Thyroid Normal. No meningeal signs. Patient noted to have left submandibular mass of unknown origin. Cardiovascular: Normal heart rate and rhythm. Heart sound normal. No murmurs noted. Pulses normal throughout. Respiratory: No respiratory distress. Painless inspiration. Breath sounds normal. No wheezes/rales/rhonchi noted. Chest nontender. No accessory muscle usage noted or decreased air movement noted. Back: Full range of motion noted. Skin: Skin warm and dry. Normal skin color. Normal skin turgor. Bruising noted on extremities from lab work. No rashes/lesions/lacerations noted. Extremities: Extremities exhibit normal range of motion. Extremities nontender. Neuro: Oriented X 3. No motor deficit. No sensory deficit. Reflexes normal. Results - Labs: On 05/03/2024 patient had a normal CBC, normal CMP, Triglycerides elevated at 183; LDL cholesterol 111 mg/dL. Otherwise all other labs are within normal limits - Imaging: Previous CT scan of the right orbit is suggestive of neoplastic process. Plan - Follow-up CAT scan for neck scheduled on 07 May to further investigate neck swelling. - Preoperative evaluation for 15 May surgery, including EKG. - Prescription of azithromycin Z-Elio for cold-related symptoms. - Prescription of Tessalon Perles for symptomatic relief of cough for nighttime use. - Claritin D to be used as necessary for allergy management. - Regarding preop clearance, the patient is acceptable risk for proposed surge ry. Reviewed with the patient that no surgery is completely free of wrist and that this examination is to assist the surgeon and reviewing informed consent. Patient was informed and verbally consented to the use of an ambient scribe for clinic note documentation during this visit. Discussion Notes During the discussion, I addressed the potential underlying causes of the patient's right orbital swelling and outlined the necessity for the upcoming biopsy surgery. Risks associated with the surgery, including the uncertainty of pathology, were discussed comprehensively. The patient has been informed of the preoperative requirements, including the need for an EKG. The likelihood of postoperative medication, whether short or long-term, was also discussed based on the biopsy results. Management of her current cold symptoms was talked through, agreeing on initiating azithromycin and using Tessalon Perles at night to alleviate coughing. We reviewed the necessity of the upcoming CAT scan to explore the swelling around the neck. Patient Instructions - Complete an EKG at the designated facility before surgery. - Do not consume food or drink three hours before the CAT scan on May 07. - Take the prescribed Tessalon Perles only at night. 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 - Inform me of any new swelling or difficulty breathing. - Attend all follow-up appointments and diagnostic tests as scheduled.
[2024-05-05 15:39] VITALS: BP 126/72; PULSE 94; TEMP 36.2; O2SAT 95; BMI 46.8
--- OUTSIDE RECORDS SUMMARY | 2024-05-05 19:22 | XMS_ITS | Clinical Summary ---
Author Organization [facility] [employer] [facility] ity Address [address] [place] [address] Care Team Providers Care Founder Name Role Phone Unavailable Primary Care Provider Unavailabl e Social History Tobacco Use Types Packs/Day Years Used Date Smoking Tobacco: Never Assessed Sex and Gender Information Value Date Recorded Sex Assigned at Not on file Gender Identity Not on file Sexual Orientation Not on file Plan of Treatment Health Maintenance Due Date Last Done Comments Breast Cancer Screening 1965 DTaP,Tdap,and Td Vaccines (1 - Tdap) 1986 Hepatitis B Vaccines (1 of 3 - 19+ 3-dose series) 1986 Cervical Cancer Screening: P ap Smear 02/07/1988 Zoster Vaccines (1 of 2) 2017 COVID-19 Vaccine ( - 2023-2 5 season) 2023 Influenza Vaccine (#1) 2023 HIB Vaccines Aged Out No longer eligi ble based on patient's age to complete this topic HPV Vaccines Aged Out No longer eligi ble based on patient's age to complete this topic Hepatitis A Vaccines Aged Out No long er eligible based on patient's age to complete this topic IPV Vaccines Aged Out No longer eligi ble based on patient's age to complete this topic MMR Vaccines Aged Out No longer eligi ble based on patient's age to complete this topic Meningococcal ACWY Vaccine Aged Out N o longer eligible based on patient's age to complete this topic Pneumococcal Vaccine: Pediat rics (0 to 5 Years) and At-Risk Patients (6 to 64 Years) Aged Out No longer eligible b ased on patient's age to complete this topic RSV Immunization Patients Un izaiah 20 months Aged Out No longer eligible b ased on patient's age to complete this topic Varicella Vaccines Aged Out No longer eligible based on patient's age to complete this topic
--- OUTSIDE RECORDS SUMMARY | 2024-05-05 19:22 | XMS_ITS ---
Author Organization [facility] Address [address] [place] [id number] Care Team Providers Care Pusher Operator Name Role Phone Juan (RETIRED) Slade MEADE Primary Care Provid er Unavailable Damon Stevens Jr Unavailable [phone] ALLERGIES Allergen (clinical drug ingredient) Drug/Non Drug Allergy documented on EMR Reaction Allergy Type Onset Date Status seasonal (uncoded) Unknown Allergy A ctive REASON FOR VISIT Patient presents today for consultation MEDICATIONS Medication SIG (Take, Route, Frequency, Duration) Notes Start Date End Date Status Multivitamin Adults - as directed Orally Active Aspir-Low 81 MG 1 tablet Orally Once a day for 30 day(s) Active Vitamin D 63148 UNIT 1 capsule Orally fo r 30 day(s) Active ZyrTEC Allergy 10 MG 1 tablet Orally Onc e a day for 30 day(s) Active Atorvastatin Calcium 20 MG TK 1 T PO ONC E D Oral for 90 Active Triamterene-HCTZ 75-50 MG TK 1 T PO ONCE D IN THE MORNING Oral for 90 Active Levothyroxine Sodium 75 MCG TK 1 T PO QAM ON AN EMPTY STOMACH Oral for 90 Active Famotidine 20 MG as directed Orally Active Montelukast Sodium 10 MG 1 tablet Orally Once a day for 30 day(s) Active Stool Softener 100 MG 1 capsule as neede d Orally Once a day for 30 day(s) every day Active SOCIAL HISTORY Tobacco Use: Social History Observation Description Date Details (start date - stop date) Never Smoker NA - NA Sex Assigned At : Social History Observation Description Sex Assigned At Unknown Tobacco Use/Smoking Question Answer Notes Patient is a nonsmoker Alcohol Screen Question Answer Notes Did you have a drink contain ing alcohol in the past year? Yes How often did you have a dri nk containing alcohol in the past year? Never (0 point) How many drinks did you have on a typical day when you were drinking in the past year? 1 or 2 drinks (0 point) How often did you have 6 or more drinks on one occasion in the past year? Never (0 point) Points 0 Interpretation Negative PROBLEMS Problem Type ICD Code Onset Dates Problem Status W/U Status Risk SNOMED Code Notes Problem Gastroesophageal reflux disease, unspecified whether esophagitis present (K21.9) Active confirmed 718956643 Problem Long-term use of aspirin therapy (Z79.82) Active confirmed 642203532 VITAL SIGNS BMI 45.31 kg/m2 03/27/2024 Blood pressure systolic 00 mm Hg 03/27/20 24 Blood pressure diastolic 00 mm Hg 024 Height 64 in 03/27/2024 Weight 264 lbs 03/27/2024 Encounters Encounter Location Date Provider Diagnosis [facility] [address] [place] [phone] 03/27/2024 Damon Stevens Jr Gastroesophageal reflux disease, unspecified whether esophagitis present K21.9 ; Colon cancer screening Z12.11 and Long-term use of aspirin therapy Z79.82 ASSESSMENTS Encounter Date Diagnosis Assessment Notes Treatment Notes Treatment Clinical Notes 03/27/2024 Gastroesophageal ref lux disease, unspecified whether esophagitis present (ICD-10 - K21.9) Endoscopy material was printed 03/27/2024 Colon cancer screeni ng (ICD-10 - Z12.11) 03/27/2024 Long-term use of aspirin therapy (ICD-10 - Z79.82) PLAN OF TREATMENT Treatment Notes Assessment Notes Gastroesophageal reflux dise ase, unspecified whether esophagitis present Endoscopy material was printed Future Test Test Name Order Date UPPER GI ENDOSCOPY 03/27/2024 COLONOSCOPY 03/27/2024 Next Appt Details Follow Up: 1 Year, Reason: Provider Name:Damon ortega Jr, 07/29/2024 07:30:00 AM, [address] [place] [address] , [place], [place], [phone], Progress Notes * Examination Category Sub-Category Detail Notes General Examination GENERAL APPEARANCE: in no ac pawan distress HEAD: normocephalic EYES: sclera non-icteric NECK/THYROID: no lymphadenopathy HEART: S1, S2 normal, no mu rmurs CHEST: normal shape and exp ansion LUNGS: clear to auscultatio n bilaterally ABDOMEN: soft, nontender, non distended, bowel sounds present, no organomegaly SKIN: anicteric EXTREMITIES: no clubbing, cyanosi s, or edema PSYCH: cognitive function i ntact ORAL CAVITY: mucosa moist
--- OUTSIDE RECORDS SUMMARY | 2024-05-05 19:22 | XMS_ITS | Patient Health Record ---
Author Organization [facility] Address [address] [place] [phone] Care Team Providers Care Lockstitch Waistband Setter Name Role Phone Juan (RETIRED) Slade MEADE Primary Care Provid er Unavailable Damon Stevens Jr Unavailable ALLERGIES Allergen (clinical drug ingredient) Drug/Non Drug Allergy documented on EMR Reaction Allergy Type Onset Date Status seasonal (uncoded) Unknown Allergy A ctive REASON FOR REFERRAL No Information MEDICATIONS Medication SIG (Take, Route, Frequency, Duration) Notes Start Date End Date Status Multivitamin Adults - as directed Orally Active Aspir-Low 81 MG 1 tablet Orally Once a day for 30 day(s) Active Vitamin D 22708 UNIT 1 capsule Orally fo r 30 day(s) Active Atorvastatin Calcium 20 MG [...] day for 30 day(s) every day Active ZyrTEC Allergy 10 MG 1 tablet Orally Onc e a day for 30 day(s) Active IMMUNIZATIONS Vaccine Route Administration Date Status Comme nts Influenza Unknown 02/08/2018 Administered Influenza Unknown 01/07/2018 Administered SOCIAL HISTORY Tobacco Use: Social History Observation [...] W/U Status Risk SNOMED Code Notes Problem Colon cancer screening (Z12.11) Active confirmed 680696623 Problem Encounter for other preprocedural examination (Z01.818) Active confirmed 415041489 Problem Gastroesophageal reflux disease, unspecified whether esophagitis present (K21.9) Active confirmed 131375491 Problem Long-term use of aspirin therapy (Z79.82) Active confirmed 505466857 VITAL SIGNS Blood pressure diastolic 00 mm Hg 03/27/2024 Height 64 in 03/27/2024 Blood pressure systolic 00 mm Hg 03/27/2024 Weight 264 lbs 03/27/2024 BMI 45.31 kg/m2 03/27/2024 Encounters Encounter Location Date Provider Diagnosis [facility] [address] [place] [phone] 03/27/2024 Damon Stevens Jr Gastroesophageal reflux disease, unspecified whether esophagitis present K21.9 ; Colon cancer screening Z12.11 and Long-term use of aspirin therapy Z79.82 [facility] [address] [place] [phone] 04/29/2024 Damon Stevens Jr ASSESSMENTS Encounter Date Diagnosis Assessment Notes Treatment Notes Treatment Clinical Notes 03/27/2024 Colon cancer screeni ng (ICD-10 - Z12.11) 03/27/2024 Gastroesophageal ref lux disease, unspecified whether esophagitis present (ICD-10 - K21.9) Endoscopy material was printed 03/27/2024 Long-term use of aspirin therapy (ICD-10 - Z79.82) PLAN OF TREATMENT Future Test Test Name Order Date COLONOSCOPY 09/26/2018 UPPER GI ENDOSCOPY 03/27/2024 COLONOSCOPY 03/27/2024 Next Appt Details Provider Name:Damon Conklin Manish ortega Jr, 07/29/2024 07:30:00 AM, [address] [place] [address] , [place], [place], [phone], Insurance Providers Payer Name Payer Address Payer Phone Subscriber Number Group Number Insured Name Patient Relationship to Insured Coverage Start Date Coverage End Date [facility] [address] [place] [phone] [id number] CHARO FUCHS Self - patient is the insured MEDICAL (GENERAL) HISTORY Medical History History ICD Code Hypertension Hyperlipidemia Elevated blood sugars Hypothyroidism Elevated body mass index Gastroesophageal reflux disease Disc disease Sciatica Colonoscopy 02/25, 5 mm tubular adenoma, five-year followup Surgical History Surgery Date(Month/Year)
--- OUTSIDE RECORDS SUMMARY | 2024-05-05 19:22 | XMS_ITS | Patient Health Record ---
Author Organization Yeyo Moon MD Address [address] [place], [place] [id number] Care Team Providers Care Cargo Handler Name Role Phone Slade Martinez DO Primary Care Provider Unavail able Allergies No Known Allergies Reason For Referral No Information Medications Medication SIG (Take, Route, Frequency, Duration) Notes Start Date End Date Status Famotidine 20 MG 1 tablet at bedtime as needed Orally Once a day for 30 day(s) Active Levothyroxine Sodium 75 MCG 1 tablet in the morning on an empty stomach Orally Once a day for 30 day(s) Active Triamterene-HCTZ 75-50 MG 1 tablet in th e morning Orally Once a day for 30 day(s) Active Atorvastatin Calcium 20 MG 1 tablet Oral ly Once a day for 30 day(s) Active Aspir-Low 81 MG 1 tablet Orally Once a day for 30 day(s) Active ZyrTEC Allergy 10 MG 1 tablet Orally Onc e a day for 30 day(s) Active Immunizations Vaccine Route Administration Date Status Comme nts SARS-COV-2 Moderna Unknown 11/21/2021 Administered SARS-COV-2 Moderna Unknown 03/04/2021 Administered Fluarix Quadrivalent Unknown 01/29/2021 Administered Plan Of Treatment No Information Insurance Providers Payer Name Payer Address Payer Phone Subscriber Number Group Number Insured Name Patient Relationship to Insured Coverage Start Date Coverage End Date [facility] [address] [facility] [address] [place] [phone] [id number] Gia Dalal Self - patient is the insured
--- OUTSIDE RECORDS SUMMARY | 2024-05-05 19:23 | XMS_ITS ---
Author Organization Slade Martinez DO FACP Address [address] [place], [place] [phone] Care Team Providers Care Sba Business Development Officer Name Role Phone Slade Martinez Primary Care Provider [phone] REASON FOR VISIT physical Encounters Encounter Location Date Provider Diagnosis Slade Martinez DO, FACP [address] [place] [phone] 12/04/2023 Slade Martinez PLAN OF TREATMENT No Information
--- OUTSIDE RECORDS SUMMARY | 2024-05-05 19:23 | XMS_ITS ---
Author Organization [facility] Address [address] [place] [phone] Care Team Providers Care Robotic Maintenance Technician Name Role Phone Juan (RETIRED) Slade MEADE Primary Care Provid er Unavailable Rodney Hernandez, Damon Florez REASON FOR VISIT colonoscopy Encounters Encounter Location Date Provider Diagnosis [facility] [address] [facility] [address] [place] [phone] 04/29/2024 Damon Stevens Jr PLAN OF TREATMENT Next Appt Details Provider Name:Damon ortega Jr, 07/29/2024 07:30:00 AM, [address] [place] [address] , [place], [place], [phone],
--- OUTSIDE RECORDS SUMMARY | 2024-05-05 19:23 | XMS_ITS | Patient Health Record ---
Author Organization Slade Martinez DO, FACP Address [address] [place] [phone] Care Team Providers Care Control Clerk Name Role Phone Slade Martinez Primary Care Provider ALLERGIES No Known Allergies RESULTS Component Value Reference Range Notes MM tomosynthesis screening B I Reviewed date:07/18/2023 01:13:12 PM Interpretation:Benign Performing Lab: Notes/Report: [facility] [address] [place] [address] Mammography Report Signed Patient: Gia Dalal MR#: [id number] : 1965 Acct:[id number] Age/Sex: 58 / F ADM Date: 07/07/23 Loc: HO.MAMMO Attending Dr: Slade Martinez DO Ordering Physician: Slade Martinez DO Results: 2Benig n Findings Date of Service: 07/07/23 Follow Up: 1 Year From [facility] Mammogram Procedure(s): MM tomosynthesis screening BI Accession Number(s): [id number] cc: Slade Martinez DO EXAMINATION: MM SCREENING DIGITAL BREAST TOMOSYNTHESIS, BILATERAL CLINICAL INFORMATION: Screening. Asymptomatic. COMPARISON: Mammography: This study is compared with prior exams dating back to 2019. TECHNIQUE: Digital breast tomosynthesis is performed in both the craniocaudal and mediolateral oblique views along with computer-aided detection (CAD). Synthesized 2D images are generated from the tomosynthesis. FINDINGS: The breasts are heterogeneously dense, which may obscure small masses (ACR BI-RADS breast composition Category c). There are no significant masses, abnormal calcifications, or other abnormalities. There is a tissue marker in the lateral aspect of the left breast from prior benign percutaneous biopsy. MM/MM tomosynthesis screening BI IMPRESSION: No mammographic evidence of malignancy. ASSESSMENT: BI-RADS BI-RADS 2 - Benign Findings RECOMMENDATION: Routine annual mammography screening. 1 year F/U This examination should not preclude the clinical evaluation of a suspicious palpable abnormality. This patient's information was entered into a reminder system with a target due date for their next mammogram. Dictated By: Geri Islas MD Signed By: <Electronically signed by Geri Islas MD in OV> 07/17/23 0601 DD/ 0811 TD/TT: Gsa Coordinator: Complete Blood Count Auto Di ff Reviewed date:11/20/2023 09:17:43 AM Interpretation:Normal Performing Lab:[facility], [address] [place] [phone] Notes/Report: White Blood Count 6.7 4.8-10.8 X10*3/uL Red Blood Count 4.96 4.20-5.50 X10*6/uL Hemoglobin 15.5 12.0-16.0 g/dl Hematocrit 45.2 37.0-47.0 % Mean Corpuscular Volume 91.1 80.0-98.0 fL Mean Corpuscular Hemoglobin 31.3 27.0-33.0 pg Mean Corpuscular HGB Conc 34.3 31.0-35.0 g/dl Red Cell Distribution Width 11.7 11.0-16.0 % Platelet Count 306 160-400 X10*3/uL Mean Platelet Volume 10.4 9.4-12.3 fL Neutrophils Percent Auto 50.2 45-73 % Imm Gran Pct Auto 0.1 0.0-0.4 % Lymphocytes Percent Auto 32.4 20-40 % Monocytes Percent Auto 9.1 2-11 % Eosinophils Percent Auto 7.0 0-4 % Basophils Percent Auto 1.2 0-2 % NRBC Pct Auto 0.0 0.0-0.2 /100WBC Neutrophils Absolute Auto 3.4 2.0-8.3 x10*3/u L Imm Gran Abs Auto 0.01 0.00-0.03 X10*3/uL Lymphocytes Absolute Auto 2.2 1.2-4.9 X10*3/u L Monocytes Absolute Auto 0.6 0.1-1.2 X10*3/uL Eosinophils Absolute Auto 0.5 0.0-0.4 X10*3/u L Basophils Absolute Auto 0.1 0.0-0.2 X10*3/uL NRBC Abs Auto 0.000 0.0-0.012 X10*3/uL Comprehensive [place]. Panel Fa Reviewed date:11/20/2023 10:38:09 AM Interpretation:Abnormal Performing Lab:[facility], [address] [place] [phone] Notes/Report: Sodium 140 135-145 mmol/L Potassium 3.0 3.3-5.1 mmol/L Chloride 100 96-108 mmol/L Carbon Dioxide 30 22-29 mmol/L Anion Gap 13 12-20 Blood Urea Nitrogen 16 9-16 mg/dL Creatinine 0.76 0.5-1.4 mg/dL Estimated Glomerular Filt Rate > 60 NOTE: For -Bhutanese individuals, multiply the result by 1.210. Chronic Kidney Disease: Estimated GFR < 60 mL/min/1.73m2 Severe Kidney Disease: Estimated GFR < 15 mL/min/1.73m2 Glucose Fasting 156 60-99 mg/dL A fasting glucose of 126 mg/dl or greater on more than one occasion is considered diagnostic of diabetes. Calcium 9.8 8.4-10.2 mg/dL Bilirubin Total 0.9 0.0-1.0 mg/dL Aspartate Amino Transferase 20 5-31 U/L Alanine Aminotransferase 13 0-31 U/L Total Protein 8.0 6.5-8.0 g/dL Albumin Level 4.3 3.5-5.0 g/dL Alkaline Phosphatase 81 39-117 U/L Lipid Panel Reviewed date:11/20/2023 10:38:09 AM Interpretation:Abnormal Performing Lab:[facility], [address] [place] [phone] Notes/Report: Triglycerides 198 <150 mg/dL Desirable Triglyceride: less than 150 mg/dL Borderline High Triglyceride 150-199 mg/dL High Triglyceride: 200-499 mg/dL Very High Triglyceride: greater than or equal to 5OO mg/dL Cholesterol 201 <200 mg/dL Desirable Cholesterol: less than 200 mg/dL Borderline High Cholesterol: 200-239 mg/dL High Cholesterol: greater than 239 mg/dL LDL Cholesterol Calculated 121 <100 mg/dL Desirable LDL: less than 100 mg/dL Near Optimal/Above Optimal LDL: 110-129 mg/dL Borderline High LDL: 130-159 mg/dL High LDL: 160-189 mg/dL Very High LDL: greater than or equal to 190 mg/dL HDL Cholesterol 41 >40 mg/dL Desirable HDL: greater than 40 mg/dL Note: This HDL assay may give artificially low results in patients with liver disease. Thyroid Stimulating Hormone Reviewed date:11/20/2023 10:38:09 AM Interpretation:Normal Performing Lab:[facility], [address] [place] [phone] Notes/Report: Thyroid Stimulating Hormone 2.74 0.32-4.0 uIU/ mL Note: A sustained TSH level above 2.5 uIU/mL may warrant further investigation. TSH 3rd Generation ([facility]) Complete Blood Count Auto Di ff Reviewed date:01/19/2024 08:51:42 PM Interpretation:Normal Performing Lab:[facility], [address] [place] [phone] Notes/Report: White Blood Count 5.3 4.8-10.8 X10*3/uL Red Blood Count 4.44 4.20-5.50 X10*6/uL Hemoglobin 13.6 12.0-16.0 g/dl Hematocrit 41.0 37.0-47.0 % Mean Corpuscular Volume 92.3 80.0-98.0 fL Mean Corpuscular Hemoglobin 30.6 27.0-33.0 pg Mean Corpuscular HGB Conc 33.2 31.0-35.0 g/dl Red Cell Distribution Width 11.9 11.0-16.0 % Platelet Count 266 160-400 X10*3/uL Mean Platelet Volume 10.6 9.4-12.3 fL Neutrophils Percent Auto 50.5 45-73 % Imm Gran Pct Auto 0.2 0.0-0.4 % Lymphocytes Percent Auto 32.3 20-40 % Monocytes Percent Auto 8.1 2-11 % Eosinophils Percent Auto 7.4 0-4 % Basophils Percent Auto 1.5 0-2 % NRBC Pct Auto 0.0 0.0-0.2 /100WBC Neutrophils Absolute Auto 2.7 2.0-8.3 x10*3/u L Imm Gran Abs Auto 0.01 0.00-0.03 X10*3/uL Lymphocytes Absolute Auto 1.7 1.2-4.9 X10*3/u L Monocytes Absolute Auto 0.4 0.1-1.2 X10*3/uL Eosinophils Absolute Auto 0.4 0.0-0.4 X10*3/u L Basophils Absolute Auto 0.1 0.0-0.2 X10*3/uL NRBC Abs Auto 0.000 0.0-0.012 X10*3/uL Erythrocyte Sedimentation Ra te Reviewed date:01/19/2024 08:51:42 PM Interpretation:Normal Performing Lab:[facility], [address] [place] [phone] Notes/Report: Erythrocyte Sedimentation Rate 7 0-20 MM/HR Patients with polycythemia and many hemoglobin abnormalities may have depressed sed rates whereas patients with anemia may have elevated sed rates. Urinalysis and Microscopic Reviewed date:01/19/2024 08:51:42 PM Interpretation:Negative Performing Lab:[facility], [address] [place] [phone] Notes/Report: Color Urine Yellow Appearance Urine Clear PH 8.0 5.0-9.0 Glucose Urine UA Negative Negative mg/dL Urine Blood Negative Negative Specific [place] - Urine 1.020 1.005-1.025 Urine Protein Negative Neg-Trace mg/dL Urine Ketones Negative Negative mg/dL Nitrite Urine Negative Negative Leukocyte Esterase Urine Negative Negative RBC Urine 0-2 0-2 /HPF WBC Urine 0-5 0-5 /HPF Squamous Epithelial Cell Urine 6-10 0-2 /HPF Bacteria Urine None Seen None Seen Hyaline Casts Urine 0-2 0-2 /LPF Comprehensive [place]. Panel Fa Reviewed date:01/19/2024 08:53:05 PM Interpretation:Abnormal Performing Lab:[address] [phone] Notes/Report: Sodium 143 135-145 mmol/L Potassium 3.1 3.3-5.1 mmol/L Chloride 105 96-108 mmol/L Carbon Dioxide 29 22-29 mmol/L Anion Gap 12 12-20 Blood Urea Nitrogen 12 9-16 mg/dL Creatinine 0.67 0.5-1.4 mg/dL Estimated Glomerular Filt Rate > 60 NOTE: For -Bhutanese individuals, multiply the result by 1.210. Chronic Kidney Disease: Estimated GFR < 60 mL/min/1.73m2 Severe Kidney Disease: Estimated GFR < 15 mL/min/1.73m2 Glucose Fasting 125 60-99 mg/dL A fasting glucose from 100-125 mg/dl is considered impaired (pre-diabetes). Calcium 9.3 8.4-10.2 mg/dL Bilirubin Total 0.6 0.0-1.0 mg/dL Aspartate Amino Transferase 17 5-31 U/L Alanine Aminotransferase 9 0-31 U/L Total Protein 6.5 6.5-8.0 g/dL Albumin Level 3.7 3.5-5.0 g/dL Alkaline Phosphatase 66 39-117 U/L C Reactive Protein Reviewed date:01/19/2024 08:51:42 PM Interpretation:Normal Performing Lab:[address] [phone] Notes/Report: C Reactive Protein < 0.10 < or = 0.50 mg/dL Lipid Panel Reviewed date:01/19/2024 08:52:17 PM Interpretation:Normal Performing Lab:[address] [phone] Notes/Report: Triglycerides 115 <150 mg/dL Desirable Triglyceride: less than 150 mg/dL Borderline High Triglyceride 150-199 mg/dL High Triglyceride: 200-499 mg/dL Very High Triglyceride: greater than or equal to 5OO mg/dL Cholesterol 160 <200 mg/dL Desirable Cholesterol: less than 200 mg/dL Borderline High Cholesterol: 200-239 mg/dL High Cholesterol: greater than 239 mg/dL LDL Cholesterol Calculated 98 <100 mg/dL Desirable LDL: less than 100 mg/dL Near Optimal/Above Optimal LDL: 110-129 mg/dL Borderline High LDL: 130-159 mg/dL High LDL: 160-189 mg/dL Very High LDL: greater than or equal to 190 mg/dL HDL Cholesterol 39 >40 mg/dL Desirable HDL: greater than 40 mg/dL Note: This HDL assay may give artificially low results in patients with liver disease. Vitamin D 25-OH Total Reviewed date:01/19/2024 08:51:42 PM Interpretation:Normal Performing Lab:[facility], [address] [place] [phone] Notes/Report: Vitamin D 25-OH Total 59.0 >30 ng/mL Health Based Reference Values* < 20 ng/mL Deficient 20-30 ng/mL Insufficient > 30 ng/mL Sufficient *Norbert MENDEZ. N Engl J Med. 2007;357:266-280 Care must be taken in interpreting Vitamin D results from different laboratories and methodologies. Published data demonstrated that results from patients undergoing hemodialysis may show a negative bias when tested with various automated 25-OH vitamin D assays when compared to LC-MS/MS. When testing samples from patients whose predominant form of Vitamin D is Vitamin D2, such as patients receiving Vitamin D2 supplementation, results that are subtherapeutic should be confirmed with another method such as LC-MS/MS. Thyroid Stimulating Hormone Reviewed date:01/19/2024 08:51:42 PM Interpretation:Normal Performing Lab:[facility], [address] [place] [phone] Notes/Report: Thyroid Stimulating Hormone 1.73 0.32-4.0 uIU/ mL TSH 3rd Generation ([facility]) Microalbumin, Random Reviewed date:01/19/2024 08:51:42 PM Interpretation:Normal Performing Lab:[facility], [address] [place] [phone] Notes/Report: Creatinine Urine 129.31 Microalbumin Urine < 5.0 Microalbum/Creatinine Ratio Ur TNP <30 ug/mg cr Unable to calculate albumin/creatinine ratio due to low microalbumin or creatinine result. Rheumatoid Factor Reviewed date:01/19/2024 08:51:42 PM Interpretation:Negative Performing Lab:[facility], [address] [place] [phone] Notes/Report: Rheumatoid Factor < 13.0 <15.0 IU/mL Hemoglobin A1c Reviewed date:01/19/2024 08:53:19 PM Interpretation:Abnormal Performing Lab:[facility], [address] [place] [phone] Notes/Report: Hemoglobin A1c % 6.1 <6.0 % Hemoglobin A1C Reference Range Adults: 4.8 - 6.0 % Non diabetic: < 6.0 % Goal: < 7.0 % Additional Action Suggested: > 8.0 % Note: Hemoglobin A1c results are invalid for patients with abnormal amounts of HbF. Blood transfusions may impact the HbA1c concentration in the patient sample. Estimated Average Glucose 128 eAG = Estimated average glucose which is %A1C expressed as average glucose, using the formula of the X2F-Uhwhmol Average Glucose study (ADAG), Diabetes Care, Vol.31,#8, 2007 REASON FOR REFERRAL Reason TITLE INSURANCE SALES REPRESENTATIVE examination Diagnosis 1 Encounter for genera l adult medical examination without abnormal findings (Z00.00) Referral Organization Slade Lawson FACP Referring Provider First Name Slade Referring Provider Last Name Juan Referring Provider Speciality Internal edicine Referred Provider Corine Razo Referred Provider Specialty OB - Gynecol ogy General Notes Katharina Carroll 4 08:50:34 AM EDT > Fax sent prior to scheduling, Katharina Carroll 12/12/2023 01:51:48 PM EDT > Referral refaxed and they will give it to the triage nurse to give the patient a call to set up appointment. left message on machine for patient., Mireya Gray 12/25/2023 01:12:44 PM EDT > specialist's office has had a backlog of referrals, but should be calling patient in the next week or so. LMVM for patient. Referral Priority Routine Reason CEE Diagnosis 1 Encounter for genera l adult medical examination without abnormal findings (Z00.00) Referral Organization Slade Lawson FACP Referring Provider First Name Slade Referring Provider Last Name Juan Referring Provider Speciality Internal edicine Referred Provider Adilene Denis Referred Provider Specialty Cyber Defense Analyst General Notes Katharina Carroll 4 08:49:59 AM EDT > Fax sent prior to scheduling, Mireya Gray 12/26/2023 04:06:50 PM EDT > LMVM for patient. Referral Priority Routine Referral Appointment Date 01/30/2024 Reason F/U Colonoscopy Diagnosis 1 Encounter for genera l adult medical examination without abnormal findings (Z00.00) Referral Organization Slade Lawson FACP Referring Provider First Name Slade Referring Provider Milton Name Juan Ref[facility] Referred Provider Damon Stevens Referred Provider Specialty Gastroentero logy General Notes Page,Katharina 08:49:22 AM EDT > Fax sent prior to scheduling, Mireya Gray 12/12/2023 01:35:16 PM EDT > letter to patient. Referral Priority Routine MEDICATIONS Medication SIG (Take, Route, Frequency, Duration) Notes Start Date End Date Status Triamterene-HCTZ 75-50 MG 1 tablet in th e morning Orally Once a day for 90 days Active Multivitamins - 1 capsule Orally Onc e a day Active Famotidine 20 MG 1 tablet Orally Once a day Active ZyrTEC Allergy 10 MG 1 tablet Orally Onc e a day Active Aspirin EC 81 MG 1 tablet Orally Once a day Active Atorvastatin Calcium 20 MG 1 tablet Oral ly Once a day Active Montelukast Sodium 10 MG 1 tablet Orally Once a day for 90 days Active Levothyroxine Sodium 75 MCG 1 tablet in the morning on an empty stomach, 2 on Sunday Orally Once a day Active Vitamin D (Ergocalciferol) 1.25 MG (38597 UT) 1 capsule Orally Once a week Active IMMUNIZATIONS Vaccine Route Administration Date Status Comme nts Influenza Unknown 01/07/2015 Administered Influenza Quad IM Intramuscular 02/12/2019 Administered Influenza Quad IM Intramuscular 01/29/2021 Administered COVID-19 Moderna Vaccine Unknown 07/20/2020 Administere d Influenza Unknown 04/14/2012 Administered COVID-19 Moderna Vaccine Unknown 03/04/2021 Administere d Influenza Quad Unknown 01/26/2018 Administered Influenza Quad Unknown 12/03/2015 Administered COVID-19 Moderna Bivalent Unknown 04/28/2022 Administer ed COVID-19 Moderna Vaccine Unknown 11/21/2021 Administere d Influenza Quad Unknown 12/23/2021 Administered SOCIAL HISTORY Tobacco Use: Social History Observation Description Date Details (start date - stop date) Never Smoker NA - NA Sex Assigned At : Social History Observation Description Sex Assigned At Unknown Tobacco Use/Smoking Question Answer Notes Patient is a nonsmoker Additional Findings: Tobacco Non-User Cu rrent non-smoker, currently using no form of tobacco Alcohol Screen Question Answer Notes Did you have a drink contain ing alcohol in the past year? Yes How often did you have a dri nk containing alcohol in the past year? Monthly or less (1 point) How many drinks did you have on a typical day when you were drinking in the past year? 1 or 2 drinks (0 point) How often did you have 6 or more drinks on one occasion in the past year? Never (0 point) Points 1 Interpretation Negative PROBLEMS Problem Type ICD Code Onset Dates Problem Status W/U Status Risk SNOMED Code Notes Problem Environmental allerg ies (Z91.09) Active confirmed 280368860 Problem Vitamin D deficiency (E55.9) Active confirmed 76272383 Problem Essential hypertensi on (I10) Active confirmed 63655678 Problem Acquired hypothyroid ism (E03.9) Active confirmed 830663128 Problem Morbid obesity due t o excess calories (E66.01) Active confirmed 569067105 Problem Acute pain of left k nee (M25.562) Active confirmed 33653850 Problem Sciatica of right si de (M54.31) Active confirmed 72657392 Problem Hypercholesterolemia (E78.00) Active confirmed 32585639 VITAL SIGNS Blood pressure diastolic 70 mm Hg 12/11/2023 Height 63.25 in 02/01/2024 Blood pressure systolic 116 mm Hg 12/11/2023 Weight 257 lbs 02/01/2024 BMI 45.16 kg/m2 02/01/2024 Encounters Encounter Location Date Provider Diagnosis Slade Martinez DO, [facility] [address] [place], [place] [phone] 12/04/2023 Slade Martinez DO, [facility] [address] [place], [place] [id number] 12/11/2023 Slade Martinez Encounter for genera l adult medical examination without abnormal findings Z00.00 ; Essential hypertension I10 ; Hypercholesterolemia E78.00 ; Acquired hypothyroidism E03.9 ; Vitamin D deficiency E55.9 ; Environmental allergies Z91.09 and Morbid obesity due to excess calories E66.01 Slade Martinez DO, [facility] [address] [place], [place] [id number] 06/15/2023 Slade Martinez DO, [facility] [address] [place], [place] [id number] 09/17/2023 Slade Martinez Essential hypertensi on I10 ; Acquired hypothyroidism E03.9 ; Vitamin D deficiency E55.9 and Environmental allergies Z91.09 Slade Martinez DO, [facility] [address] [place], [place] [id number] 11/20/2023 Slade Martinez DO, [facility] [address] [place], [place] [id number] 05/25/2023 Slade Martinez Essential hypertensi on I10 ; Hypercholesterolemia E78.00 ; Acquired hypothyroidism E03.9 ; Morbid obesity due to excess calories E66.01 ; Vitamin D deficiency E55.9 and Environmental allergies Z91.09 Slade Martinez DO, [facility] [address] [place], [place] [phone] 02/01/2024 Slade Martinez Essential hypertensi on I10 ; Hypercholesterolemia E78.00 ; Acquired hypothyroidism E03.9 ; Morbid obesity due to excess calories E66.01 ; Vitamin D deficiency E55.9 and Environmental allergies Z91.09 ASSESSMENTS Encounter Date Diagnosis Assessment Notes Treatment Notes Treatment Clinical Notes 12/11/2023 Encounter for genera l adult medical examination without abnormal findings (ICD-10 - Z00.00) 12/11/2023 Essential hypertensi on (ICD-10 - I10) 09/17/2023 Essential hypertensi on (ICD-10 - I10) 05/25/2023 Essential hypertensi on (ICD-10 - I10) 05/25/2023 Hypercholesterolemia (ICD-10 - E78.00) 02/01/2024 Essential hypertensi on (ICD-10 - I10) 02/01/2024 Hypercholesterolemia (ICD-10 - E78.00) 12/11/2023 Hypercholesterolemia (ICD-10 - E78.00) 09/17/2023 Acquired hypothyroid ism (ICD-10 - E03.9) 05/25/2023 Acquired hypothyroid ism (ICD-10 - E03.9) 02/01/2024 Acquired hypothyroid ism (ICD-10 - E03.9) 12/11/2023 Acquired hypothyroid ism (ICD-10 - E03.9) 09/17/2023 Vitamin D deficiency (ICD-10 - E55.9) 05/25/2023 Morbid obesity due t o excess calories (ICD-10 - E66.01) Diet, portion control, exercise, weight loss 02/01/2024 Morbid obesity due t o excess calories (ICD-10 - E66.01) Has lost 10 pounds. Will continue to diet. I advised carbohydrate reduction. We discussed getting a sleep study, in light of her fatigue. She wishes to hold off on that for now. 12/11/2023 Vitamin D deficiency (ICD-10 - E55.9) 09/17/2023 Environmental allerg ies (ICD-10 - Z91.09) 05/25/2023 Vitamin D deficiency (ICD-10 - E55.9) 02/01/2024 Vitamin D deficiency (ICD-10 - E55.9) 12/11/2023 Environmental allerg ies (ICD-10 - Z91.09) 05/25/2023 Environmental allerg ies (ICD-10 - Z91.09) Use a steroid nasal spray twice a day 02/01/2024 Environmental allerg ies (ICD-10 - Z91.09) 12/11/2023 Morbid obesity due t o excess calories (ICD-10 - E66.01) Diet, portion control, exercise, weight loss. Advised to lose 15 pounds. Advised to limit carbohydrates and avoid sweets PLAN OF TREATMENT No Information Insurance Providers Payer Name Payer Address Payer Phone Subscriber Number Group Number Insured Name Patient Relationship to Insured Coverage Start Date Coverage End Date [facility] [address] [place] [address] [id number] Gia Dalal Self - patient is the insured MEDICAL (GENERAL) HISTORY Medical History History ICD Code hypertension hypercholesterolemia hypothyroidism obesity low back pain herniated lumbar disc sciatica plantar fasciitis depression dysmenorrhea asthma - mild intermittent allergies-pollen, dust, willett, grass, mold varicella, age 31 scarlet fever Breast lump in upper outer quadrant, jaye ign Surgical History Surgery Date(Month/Year) breast biopsy
--- OUTSIDE RECORDS SUMMARY | 2024-05-05 19:23 | XMS_ITS ---
Author Organization Slade Martinez DO FACP Address [address] [place], [place] [address] Care Team Providers Care Comic Book Designer Name Role Phone Slade Martinez Primary Care Provider [phone] ALLERGIES No Known Allergies REASON FOR REFERRAL Reason BUN ICER examination Diagnosis 1 Encounter for genera l adult medical examination without abnormal findings (Z00.00) Referral Organization Slade Lawson FACP Referring Provider First Name Slade Referring Provider Last Name Juan Referring Provider Speciality Internal M edicine Referred Provider Corine Razo Referred Provider Specialty OB - Gynecol ogy General Notes Katharina Carroll 4 08:50:34 AM EDT > Fax sent prior to scheduling, Katharina Carroll 12/12/2023 01:51:48 PM EDT > Referral refaxed and they will give it to the triage nurse to give the patient a call to set up appointment. left message on machine for patient.Marina Joan 12/25/2023 01:12:44 PM EDT > specialist's office has had a backlog of referrals, but should be calling patient in the next week or so. LMVM for patient. Referral Priority Routine Reason CEE Diagnosis 1 Encounter for genera l adult medical examination without abnormal findings (Z00.00) Referral Organization Slade Lawson FACP Referring Provider First Name Slade Referring Provider Milton Name Juan Referring Provider Speciality Internal M edicine Referred Provider Adilene Denis Referred Provider Specialty Field Placement Director General Notes Katharina Carroll 4 08:49:59 AM EDT > Fax sent prior to scheduling, Mireya Gray 12/26/2023 04:06:50 PM EDT > LMVM for patient. Referral Priority Routine Referral Appointment Date 01/30/2024 Reason F/U Colonoscopy Diagnosis 1 Encounter for genera l adult medical examination without abnormal findings (Z00.00) Referral Organization Slade Lawson FACJenniffer Referring Provider First Name Slade Referring Provider Last Name Juan Referring Provider Speciality Internal M edicine Referred Provider Damon Stevens Referred Provider Specialty Gastroentero logy General Notes Katharina Carroll 08:49:22 AM EDT > Fax sent prior to scheduling, Mireya Gray 12/12/2023 01:35:16 PM EDT > letter to patient. Referral Priority Routine REASON FOR VISIT physical, annual visit, Follow up hypertension, hypercholesterolemia, hypothyroidism MEDICATIONS Medication SIG (Take, Route, Frequency, Duration) Notes Start Date End Date Status Montelukast Sodium 10 MG 1 tablet Orally Once a day 05/25/2023 Active Multivitamins - 1 capsule Orally Onc e a day Active Famotidine 20 MG 1 tablet Orally Once a day Active ZyrTEC Allergy 10 MG 1 tablet Orally Onc e a day Active Vitamin D (Ergocalciferol) 1.25 MG (45097 UT) 1 capsule Orally Once a week Active Atorvastatin Calcium 20 MG 1 tablet Oral ly Once a day Active Levothyroxine Sodium 75 MCG 1 tablet in the morning on an empty stomach, 2 on Sunday Orally Once a day Active Triamterene-HCTZ 75-50 MG 1 tablet in morning Orally Once a day Active Aspirin EC 81 MG 1 tablet Orally Once a day Active SOCIAL HISTORY Tobacco Use: Social [...] Never (0 point) Points 1 Interpretation Negative VITAL SIGNS BMI 46.92 kg/m2 12/11/2023 Blood pressure systolic 116 mm Hg 12/11/19 24 Blood pressure diastolic 70 mm Hg 024 Height 63.25 in 12/11/2023 Weight 267 lbs 12/11/2023 Encounters Encounter Location Date Provider Diagnosis Slade Martinez , [address] [phone] 12/11/2023 Slade Martinez Encounter for genera l adult medical examination without abnormal findings Z00.00 ; Essential hypertension I10 ; Hypercholesterolemia E78.00 ; Acquired hypothyroidism E03.9 ; Vitamin D deficiency E55.9 ; Environmental allergies Z91.09 and Morbid obesity due to excess calories E66.01 ASSESSMENTS Encounter Date Diagnosis Assessment Notes Treatment Notes Treatment Clinical Notes 12/11/2023 Encounter for genera l adult medical examination without abnormal findings (ICD-10 - Z00.00) 12/11/2023 Essential hypertensi on (ICD-10 - I10) 12/11/2023 Hypercholesterolemia (ICD-10 - E78.00) 12/11/2023 Acquired hypothyroid ism (ICD-10 - E03.9) 12/11/2023 Vitamin D deficiency (ICD-10 - E55.9) 12/11/2023 Environmental allerg ies (ICD-10 - Z91.09) 12/11/2023 Morbid obesity due t o excess calories (ICD-10 - E66.01) Diet, portion control, exercise, weight loss. Advised to lose 15 pounds. Advised to limit carbohydrates and avoid sweets PLAN OF TREATMENT Medication Medication Name Sig Start Date Stop Date Notes Montelukast Sodium 10 MG 1 tablet Orally Once a day 2023 Multivitamins - 1 capsule Orally Once a day Famotidine 20 MG 1 tablet Orally Once a day ZyrTEC Allergy 10 MG 1 tablet Orally Once a day Vitamin D (Ergocalciferol) 1 .25 MG (37940 UT) 1 capsule Orally Once a week Atorvastatin Calcium 20 MG 1 tablet Orally Once a day Levothyroxine Sodium 75 MCG 1 tablet in the morning on an empty stomach, 2 on Sunday Orally Once a day Triamterene-HCTZ 75-50 MG 1 tablet in morning Orally Once a day Aspirin EC 81 MG 1 tablet Orally Once a day Treatment Notes Assessment Notes Morbid obesity due to excess calories Di et, portion control, exercise, weight loss. Advised to lose 15 pounds. Advised to limit carbohydrates and avoid sweets Referrals Referral Date Details BUN ICER examination, Oanh Razo 01/30/2024 01/30/2024, Skylar MCGINNIS F/U Colonoscopy, Kee Stevens Next Appt Details Follow Up: 6 Weeks, Reason: follow up visit,review lab work Progress Notes * Examination Category Sub-Category Detail Notes General Examination GENERAL APPEARANCE: well dev eloped, well nourished, in no acute distress HEAD: normocephalic, atrau matic EYES: sclera non-icteric NECK/THYROID: neck supple, full ra nge of motion, no cervical lymphadenopathy, thyroid normal, no carotid bruit HEART: regular rate and rhy thm, S1, S2 normal, no murmurs LUNGS: clear to auscultatio n bilaterally ABDOMEN: soft, nontender, non distended, bowel sounds present, normal NEUROLOGIC: nonfocal, motor stre ngth normal upper and lower extremities, sensory exam intact SKIN: warm and dry EXTREMITIES: no edema PSYCH: alert, oriented, cog nitive function intact FEMALE GENITOURINARY: per BUN ICER Consultation Request Notes Referral Date Referring Provider Referred Provider Not es 12/11/2023 Slade Martinez Rebekah BUN ICER examin ation 12/11/2023 Slade Martinez Melissa CEE 12/11/2023 Slade Martinez Bernard F/U Col onoscopy
--- OUTSIDE RECORDS SUMMARY | 2024-05-05 19:23 | XMS_ITS ---
Author Organization Slade Martinez DO, FACP Address [address] [place], [place] [address] Care Team Providers Care Title Search Manager Name Role Phone Slade Martinez Primary Care Provider ALLERGIES No Known Allergies REASON FOR VISIT 6 week f/u, Follow up hypertension, hypercholesterolemia, hypothyroidism MEDICATIONS Medication SIG (Take, Route, Frequency, Duration) Notes Start Date End Date Status Multivitamins - 1 capsule Orally Onc e a day Active Triamterene-HCTZ 75-50 MG 1 tablet in th e morning Orally Once a day Active Aspirin EC 81 MG 1 tablet Orally Once a day Active Atorvastatin Calcium 20 MG 1 tablet Oral ly Once a day Active Levothyroxine Sodium 75 MCG 1 tablet in the morning on an empty stomach, 2 on Sunday Orally Once a day Active Montelukast Sodium 10 MG 1 tablet Orally Once a day 05/25/2023 Active Famotidine 20 MG 1 tablet Orally Once a day Active ZyrTEC Allergy 10 MG 1 tablet Orally Onc e a day Active Vitamin D (Ergocalciferol) 1.25 MG (37305 UT) 1 capsule Orally Once a week Active SOCIAL HISTORY Tobacco Use: Social History [...] Points 1 Interpretation Negative VITAL SIGNS BMI 45.16 kg/m2 02/01/2024 Height 63.25 in 02/01/2024 Weight 257 lbs 02/01/2024 Encounters Encounter Location Date Provider Diagnosis Slade Martinez DO, [address] [phone] 02/01/2024 Slade Martinez Essential hypertensi on I10 ; Hypercholesterolemia E78.00 ; Acquired hypothyroidism E03.9 ; Morbid obesity due to excess calories E66.01 ; Vitamin D deficiency E55.9 and Environmental allergies Z91.09 ASSESSMENTS Encounter Date Diagnosis Assessment Notes Treatment Notes Treatment Clinical Notes 02/01/2024 Essential hypertensi on (ICD-10 - I10) 02/01/2024 Hypercholesterolemia (ICD-10 - E78.00) 02/01/2024 Acquired hypothyroid ism (ICD-10 - E03.9) 02/01/2024 Morbid obesity due t o excess calories (ICD-10 - E66.01) Has lost 10 pounds. Will continue to diet. I advised carbohydrate reduction. We discussed getting a sleep study, in light of her fatigue. She wishes to hold off on that for now. 02/01/2024 Vitamin D deficiency (ICD-10 - E55.9) 02/01/2024 Environmental allerg ies (ICD-10 - Z91.09) PLAN OF TREATMENT Medication Medication Name Sig Start Date Stop Date Notes Multivitamins - 1 capsule Orally Once a day Triamterene-HCTZ 75-50 MG 1 tablet in morning Orally Once a day Aspirin EC 81 MG 1 tablet Orally Once a day Atorvastatin Calcium 20 MG 1 tablet Orally Once a day Levothyroxine Sodium 75 MCG 1 tablet in the morning on an empty stomach, 2 on Sunday Orally Once a day Montelukast Sodium 10 MG 1 tablet Orally Once a day 2023 Famotidine 20 MG 1 tablet Orally Once a day ZyrTEC Allergy 10 MG 1 tablet Orally Once a day Vitamin D (Ergocalciferol) 1 .25 MG (65068 UT) 1 capsule Orally Once a week Treatment Notes Assessment Notes Morbid obesity due to excess calories Barnett s lost 10 pounds. Will continue to diet. I advised carbohydrate reduction. We discussed getting a sleep study, in light of her fatigue. She wishes to hold off on that for now. Next Appt Details Follow Up: 6 Months, Reason: follow up visit Progress Notes * Examination Category Sub-Category Detail Notes General Examination GENERAL APPEARANCE: well dev eloped, well nourished, in no acute distress LUNGS: breathing comfortabl y at rest PSYCH: alert, oriented, cog nitive function intact History and Physical Notes * HPI (History of Present Illness) Category Sub-Category Detail Notes New symptom(s) Telehealth Location of provider:: Pro nedar's home address Location of patient:: Address listed in demographics for today's visit Patient identification confirmed using:: Name, Telehealth method:: Video co nference where patient is visible to the provider of care Consent:: Patient verbally c onsented to treatment, Patient verbally consented to billing insurance company, Patient informed of any privacy concerns related to method of visit Total time spent with patient (mins): 31 Disclaimer: This Telehealth visit is being conducted per CDC recommendations due to the COVID-19 outbreak.
== END 2024-05-05 16:06 | disposition home or self-care (01) ==
PROVIDERS: PCP Internal Medicine; Visit Provider Physician Assistant Medical
DX: Z01.818 Encounter for other preprocedural examination (principal); H57.89 Other specified disorders of eye and adnexa; I10 Essential (primary) hypertension; E03.9 Hypothyroidism, unspecified; R22.1 Localized swelling, mass and lump, neck; J30.9 Allergic rhinitis, unspecified

== ENCOUNTER → 2024-05-05 15:19 | Outpatient (BNVA) | payer OTHER, SELFPAY | PROVIDERS: PCP Internal Medicine; Visit Provider Physician Assistant Medical | DX: Z01.818 Encounter for other preprocedural examination (principal); H57.89 Other specified disorders of eye and adnexa; I10 Essential (primary) hypertension; E03.9 Hypothyroidism, unspecified; R22.1 Localized swelling, mass and lump, neck; J30.9 Allergic rhinitis, unspecified; Z79.899 Other long term (current) drug therapy | CPT/HCPCS: 96127 ==

== ENCOUNTER → 2024-05-06 14:40 | Outpatient (REF) | payer OTHER, SELFPAY ==
--- NOTE | 2024-05-06 14:46 | ECG_ITS ---
Test Reason : PREOP Blood Pressure : */* mmHG Vent. Rate : 91 BPM Atrial Rate : 91 BPM P-R Int : 152 ms QRS Dur : 94 ms QT Int : 372 ms P-R-T Axes : 59 33 21 degrees QTcB Int : 457 ms Normal sinus rhythm Possible Inferior infarct , age undetermined vs normal variant Borderline ECG No previous ECGs available Referred By: Keesha Sanchez Electronically Signed By: DAWOOD OWEN
--- OUTSIDE RECORDS SUMMARY | 2024-05-06 15:36 | XMS_ITS | Patient Health Record ---
Author Organization Yeyo Moon MD Address [address] [place], [place] [phone] Care Team Providers Care Automatic Buffing Wheel Former Name Role Phone Slade Martinez DO Primary [...] Insured Coverage Start Date Coverage End Date [facility] [address] [facility] [address] [place] [phone] [id number] Gia Dalal Self - patient is the insured
--- OUTSIDE RECORDS SUMMARY | 2024-05-06 15:36 | XMS_ITS ---
Author Organization Slade Martinez DO FACP Address [address] [place], [place] [id number] Care Team Providers Care Psych Tech Name Role Phone Slade Martinez Primary Care Provider ALLERGIES No Known Allergies REASON FOR REFERRAL Reason HUMAN RESOURCES COMMUNICATIONS MANAGER examination Diagnosis 1 Encounter for genera l [...] Referred Provider Adilene Denis Referred Provider Specialty Hedis Analyst General Notes Katharina Carroll 4 08:49:59 [...] day Active Vitamin D (Ergocalciferol) 1.25 MG (95852 UT) 1 capsule Orally Once a week [...] Location Date Provider Diagnosis Slade Martinez , [address] [phone] 12/11/2023 Slade Martinez Encounter for genera l [...] day Vitamin D (Ergocalciferol) 1 .25 MG (70942 UT) 1 capsule Orally Once a week [...] and avoid sweets Referrals Referral Date Details HUMAN RESOURCES COMMUNICATIONS MANAGER examination, Oanh Razo 01/30/2024 01/30/2024, Skylar MCGINNIS [...] cog nitive function intact FEMALE GENITOURINARY: per HUMAN RESOURCES COMMUNICATIONS MANAGER Consultation Request Notes Referral Date Referring Provider Referred Provider Not es 12/11/2023 Slade Martinez Rebekah HUMAN RESOURCES COMMUNICATIONS MANAGER examin ation 12/11/2023 Slade Martinez Melissa CEE 12/11/2023 Slade Martinez Bernard F/U Col onoscopy
--- OUTSIDE RECORDS SUMMARY | 2024-05-06 15:36 | XMS_ITS | Patient Health Record ---
Author Organization [facility] Address [address] [place] [phone] Care Team Providers Care Host And Hostess Name Role Phone Juan (RETIRED) Slade MEADE [...] day for 30 day(s) Active Vitamin D 28038 UNIT 1 capsule Orally fo r 30 [...] Problem Colon cancer screening (Z12.11) Active confirmed 041109667 Problem Encounter for other preprocedural examination (Z01.818) Active confirmed 342550654 Problem Gastroesophageal reflux disease, unspecified whether esophagitis present (K21.9) Active confirmed 606470941 Problem Long-term use of aspirin therapy (Z79.82) Active confirmed 417897190 VITAL SIGNS Blood pressure diastolic 00 mm Hg 03/27/2024 Height 64 in 03/27/2024 Blood pressure systolic 00 mm Hg 03/27/2024 Weight 264 lbs 03/27/2024 BMI 45.31 kg/m2 03/27/2024 Encounters Encounter Location Date Provider Diagnosis [facility] [address] [place] [phone] 03/27/2024 Damon Stevens Jr Gastroesophageal reflux disease, unspecified whether esophagitis present K21.9 ; Colon cancer screening Z12.11 and Long-term use of aspirin therapy Z79.82 [facility] [address] [place] [phone] 04/29/2024 Damon Stevens Jr ASSESSMENTS Encounter Date [...] Conklin Manish ortega Jr, 07/29/2024 07:30:00 AM, [address] [place] [address] , [place], [place], [phone], Insurance Providers Payer Name Payer Address Payer Phone Subscriber Number Group Number Insured Name Patient Relationship to Insured Coverage Start Date Coverage End Date [employer] [address] [place] [phone] [id number] CHARO FUCHS Self - patient is the insured MEDICAL (GENERAL) HISTORY Medical History History ICD Code Hypertension Hyperlipidemia Elevated blood sugars Hypothyroidism Elevated body mass index Gastroesophageal reflux disease Disc disease Sciatica Colonoscopy 02/25, 5 mm tubular adenoma, five-year followup Surgical History Surgery Date(Month/Year)
--- OUTSIDE RECORDS SUMMARY | 2024-05-06 15:36 | XMS_ITS ---
Author Organization [facility] Address [address] [place] [phone] Care Team Providers Care Modern Languages Professor Name Role Phone Juan (RETIRED) Slade MEADE Primary Care Provid er Unavailable Damon Stevens Jr Unavailable [phone] ALLERGIES Allergen (clinical drug ingredient) Drug/Non [...] day for 30 day(s) Active Vitamin D 83614 UNIT 1 capsule Orally fo r 30 [...] unspecified whether esophagitis present (K21.9) Active confirmed 559096635 Problem Long-term use of aspirin therapy (Z79.82) Active confirmed 976852974 VITAL SIGNS BMI 45.31 kg/m2 03/27/2024 Blood pressure systolic 00 mm Hg 03/27/20 24 Blood pressure diastolic 00 mm Hg 024 Height 64 in 03/27/2024 Weight 264 lbs 03/27/2024 Encounters Encounter Location Date Provider Diagnosis [facility] [address] [facility] [address] [place] [phone] 03/27/2024 Damon Stevens Jr Gastroesophageal reflux disease, [...] Provider Name:Damon ortega Jr, 07/29/2024 07:30:00 AM, [address] [place] [address] , [place], [place], [phone], Progress Notes * Examination Category Sub-Category Detail [...]
--- OUTSIDE RECORDS SUMMARY | 2024-05-06 15:36 | XMS_ITS | Clinical Summary ---
Author Organization [facility] ity Address [address] [place] [address] Care Team Providers Care Button Maker Name Role Phone Unavailable Primary Care Provider [...]
--- OUTSIDE RECORDS SUMMARY | 2024-05-06 15:36 | XMS_ITS ---
Author Organization Slade Martinez DO FACP Address [address] [place], [place] [phone] Care Team Providers Care Soup Person Name Role Phone Slade Martinez Primary Care Provider REASON FOR VISIT physical Encounters Encounter Location Date Provider Diagnosis Slade Martinez DO, FACP [address] [place] [phone] 12/04/2023 Slade Martinez PLAN OF TREATMENT No Information
--- OUTSIDE RECORDS SUMMARY | 2024-05-06 15:37 | XMS_ITS ---
Author Organization [facility] Address [address] [place] [phone] Care Team Providers Care Mud Tank Operator Name Role Phone Juan (RETIRED) Slade MEADE Primary Care Provid er Unavailable Rodney Hernandez, Damon Florez REASON FOR VISIT colonoscopy Encounters Encounter Location Date Provider Diagnosis [facility] [address] [facility] [address] [place] [phone] 04/29/2024 Damon Stevens Jr PLAN OF TREATMENT Next Appt Details Provider Name:Damon ortega Jr, 07/29/2024 07:30:00 AM, [address] [place] [address] , [place], [place], [phone],
--- OUTSIDE RECORDS SUMMARY | 2024-05-06 15:37 | XMS_ITS ---
Author Organization Slade Martinez DO, FACP Address [address] [place], [place] [phone] Care Team Providers Care Trimmer Meat Name Role Phone Slade Martinez Primary Care Provider [phone] ALLERGIES No Known Allergies REASON FOR VISIT [...] day Active Vitamin D (Ergocalciferol) 1.25 MG (43376 UT) 1 capsule Orally Once a week [...] Location Date Provider Diagnosis Slade Martinez DO, [address] [phone] 02/01/2024 Slade Martinez Essential hypertensi on I10 [...] day Vitamin D (Ergocalciferol) 1 .25 MG (40607 UT) 1 capsule Orally Once a week [...]
== END ==
LOC: HO.CARD 14:40
PROVIDERS: PCP Internal Medicine; Visit Provider Physician Assistant Medical
DX: Z01.818 Encounter for other preprocedural examination (principal)
CPT/HCPCS: 93005

== ENCOUNTER → 2024-05-06 14:46 | Outpatient (BNV) | payer OTHER, SELFPAY | PROVIDERS: PCP Internal Medicine; Visit Provider Internal Medicine | DX: Z01.810 Encounter for preprocedural cardiovascular examination (principal) | CPT/HCPCS: 93010 ==

== ENCOUNTER 2024-05-07 15:15 | Outpatient (REF) | payer OTHER, SELFPAY ==
--- NOTE | ~2024-05-07 | CT_ITS ---
EXAMINATION: CT SOFT TISSUE NECK WITH CONTRAST CLINICAL INFORMATION: Palpable abnormality left submandibular region. COMPARISON: No prior CT. Correlation made with left neck ultrasound 04/24/2024. TECHNIQUE: Following the intravenous administration of 100 mL of Omnipaque 350 intravenous contrast, helical imaging was performed in the axial plane with generation of coronal and sagittal reformatted images. This CT examination was performed using dose optimization techniques as appropriate, variously including the following: *Automated exposure control *Adjustment of mA and/or kV according to patient size (this includes techniques or standardized protocols for targeted exams where dose is matched to indication/reason for exam; i.e. extremities or head) *Use of iterative reconstruction technique FINDINGS: Lymph Nodes: -There is a borderline enlarged jugulodigastric lymph node on the left measuring 1.5 x 1.8 cm, nonspecific. -There is a borderline enlarged jugulodigastric lymph node on the right measuring 1.0 x 1.7 cm, nonspecific. -There are bilateral level II nodes present measuring up to 9 mm short axis. (This is likely what was imaged in the soft tissue neck ultrasound 04/24/2024). -There are otherwise bilateral borderline but non-pathologically enlarged anterior and posterior cervical chain lymph nodes present. Carotid Sheath Structures: -Normal. Salivary Glands: -Fatty change of the bilateral parotid glands with small intraparotid lymph nodes present. No lesions. -Normal submandibular glands bilaterally. No lesions. -Normal sublingual glands Mucosal Space: -Mild prominence of the tonsillar pillar soft tissues. -No discrete abnormal enhancing mucosal lesion. Epiglottis and aryepiglottic folds appear normal. Tongue and Tongue Base/Floor of Mouth: -Normal. No lesion evident. Normal sublingual spaces. Visceral Space: -Thyroid gland: Normal without definite lesion. -Larynx is normal. -Subglottic trachea is normal. Retropharangeal Space: - Normal. Parapharyngeal Fat Planes: -Normal and undisturbed. Wardrobe Manager Spaces: -Normal. Imaged Intracranial Contents: -No mass effect, edema, or abnormal enhancement. Cortical and dural venous sinuses are patent. The skull base is normal. Globes and Orbits: -There is mild right proptosis and minimal left. -Notable enlargement of the right greater than left lacrimal glands, with the right lacrimal gland measuring 3.4 x 1.2 x 2.0 cm (AP, TRV, CC). -There is mild enlargement of the muscle bellies of the RIGHT lateral, inferior, inferior oblique, and medial rectus muscles as compared with the contralateral side. -Remainder of the orbital structures appear normal. Paranasal Sinuses/Mastoids/Tympanic Spaces: -Mild dependent mucosal thickening trace fluid in the right maxillary antrum. A solitary right anterior ethmoid cell is opacified. -Paranasal sinuses, mastoids, and tympanic spaces are otherwise normally pneumatized. Lung Apices and Superior Mediastinal Structures: -There are prominent lymph nodes in the superior mediastinum and paratracheal regions, largest of which measures 1.4 cm in short axis (series 3, image 121). -Aortic arch is normal in caliber with a 2 vessel branching pattern. - Lung apices demonstrate a 4 mm nodule posterior left upper lobe (series 3, image 120), nonspecific. Bony Structures: -No suspicious bone lesions. No fractures. -Normal TM joints. -Mild Degenerative changes of the spine. CT/CT soft tissue neck w IV con IMPRESSION: 1. Lymphadenopathy throughout the neck bilaterally, most significant in the left greater than right jugulodigastric levels. Lymphadenopathy within the superior mediastinum. 2. Marked enlargement of the right greater than left lacrimal glands. There is moderate right and mild left proptosis. There is enlargement of the extraocular muscle bellies in the right orbit. 3. Aside from mild fatty change of the parotid glands, no salivary gland lesions. Recent left neck focused ultrasound was imaging level II lymph nodes. 4. Overall, constellation of findings suggests possible lymphoproliferative disorder, with major differential of inflammatory lymphadenopathy with dacryoadenitis (i.e. Sarcoidosis, Sjogren's syndrome). Involvement of right extraocular muscles highly suggest SARCOIDOSIS. 5. Nonspecific 4 mm left pulmonary upper lobe nodule. Given above findings consider correlation with CT chest. Electronically signed by: Pal Enriquez MD 05/07/2024 04:32 PM [facility]
[2024-05-07] MEDS: iohexoL 350 MG/ML 100 ML INFUS..BTL IV (15:41)
--- OUTSIDE RECORDS SUMMARY | 2024-05-07 17:14 | XMS_ITS ---
Author Organization Slade Martinez DO FACP Address [address] [place], [place] [phone] Care Team Providers Care Floral Manager Name Role Phone Slade Martinez Primary Care Provider [phone] REASON FOR VISIT physical Encounters Encounter Location Date Provider Diagnosis Slade Martinez DO, FACP [address] [place] [phone] 12/04/2023 Slade Matrinez PLAN OF TREATMENT No Information
--- OUTSIDE RECORDS SUMMARY | 2024-05-07 17:14 | XMS_ITS ---
Author Organization [facility] Address [address] [place] [address] Care Team Providers Care Garment Sewing Machine Operator Name Role Phone Juan (RETIRED) Slade MEADE Primary Care Provid er Unavailable Damon Stevens Jr Unavailable [phone] ALLERGIES Allergen (clinical drug ingredient) Drug/Non Drug [...] day for 30 day(s) Active Vitamin D 47700 UNIT 1 capsule Orally fo r 30 [...] unspecified whether esophagitis present (K21.9) Active confirmed 687870819 Problem Long-term use of aspirin therapy (Z79.82) Active confirmed 478345129 VITAL SIGNS BMI 45.31 kg/m2 03/27/2024 Blood pressure systolic 00 mm Hg 03/27/20 24 Blood pressure diastolic 00 mm Hg 024 Height 64 in 03/27/2024 Weight 264 lbs 03/27/2024 Encounters Encounter Location Date Provider Diagnosis [facility] [address] [facility] [address] [place] [phone] 03/27/2024 Damon Stevens Jr Gastroesophageal reflux disease, [...] Provider Name:Damon ortega Jr, 07/29/2024 07:30:00 AM, [address] [place] [address] , [place], [place], [phone], Progress Notes * Examination Category Sub-Category Detail [...]
--- OUTSIDE RECORDS SUMMARY | 2024-05-07 17:14 | XMS_ITS ---
Author Organization Slade Martinez DO FACP Address [address] [place], [place] [phone] Care Team Providers Care Farm Equipment Operator Name Role Phone Slade Martinez Primary Care Provider [phone] ALLERGIES No Known Allergies REASON FOR REFERRAL Reason PHLEBOTOMY SUPPORT TECH examination Diagnosis 1 Encounter for genera l [...] Referred Provider Adilene Denis Referred Provider Specialty Mobile Manager General Notes Katharina Carroll 4 08:49:59 AM [...] day Active Vitamin D (Ergocalciferol) 1.25 MG (67675 UT) 1 capsule Orally Once a week [...] Location Date Provider Diagnosis Slade Martinez , [address] [phone] 12/11/2023 Slade Martinez Encounter for genera l [...] day Vitamin D (Ergocalciferol) 1 .25 MG (61751 UT) 1 capsule Orally Once a week [...] and avoid sweets Referrals Referral Date Details PHLEBOTOMY SUPPORT TECH examination, Oanh Razo 01/30/2024 01/30/2024, Skylar MCGINNIS [...] cog nitive function intact FEMALE GENITOURINARY: per PHLEBOTOMY SUPPORT TECH Consultation Request Notes Referral Date Referring Provider Referred Provider Not es 12/11/2023 Slade Martinez Rebekah PHLEBOTOMY SUPPORT TECH examin ation 12/11/2023 Slade Martinez Melissa CEE 12/11/2023 Slade Martinez Bernard F/U Col onoscopy
--- OUTSIDE RECORDS SUMMARY | 2024-05-07 17:14 | XMS_ITS | Patient Health Record ---
Author Organization Yeyo Moon MD Address [address] [place], [place] [address] Care Team Providers Care Speech Pathology Supervisor Name Role Phone Slade Martinez DO Primary [...] Start Date Coverage End Date [facility] [address] [facility] [address] [place] [phone] [id number] Gia Dalal Self - patient is the insured
--- OUTSIDE RECORDS SUMMARY | 2024-05-07 17:14 | XMS_ITS | Patient Health Record ---
Author Organization [facility] Address [address] [place] [phone] Care Team Providers Care Feller Operator Name Role Phone Juan (RETIRED) Slade [...] day for 30 day(s) Active Vitamin D 95327 UNIT 1 capsule Orally fo r 30 [...] Problem Colon cancer screening (Z12.11) Active confirmed 425041169 Problem Encounter for other preprocedural examination (Z01.818) Active confirmed 760395677 Problem Gastroesophageal reflux disease, unspecified whether esophagitis present (K21.9) Active confirmed 655110047 Problem Long-term use of aspirin therapy (Z79.82) Active confirmed 336613967 VITAL SIGNS Blood pressure diastolic 00 mm Hg 03/27/2024 Height 64 in 03/27/2024 Blood pressure systolic 00 mm Hg 03/27/2024 Weight 264 lbs 03/27/2024 BMI 45.31 kg/m2 03/27/2024 Encounters Encounter Location Date Provider Diagnosis [facility] [address] [place] [phone] 03/27/2024 Damon Stevens Jr Gastroesophageal reflux disease, unspecified whether esophagitis present K21.9 ; Colon cancer screening Z12.11 and Long-term use of aspirin therapy Z79.82 [facility] [address] [place] [phone] 04/29/2024 Damon Stevens Jr ASSESSMENTS Encounter Date [...] Conklin Manish ortega Jr, 07/29/2024 07:30:00 AM, [address] [place] [address] , [place], [place], [phone], Insurance Providers Payer Name Payer Address Payer Phone Subscriber Number Group Number Insured Name Patient Relationship to Insured Coverage Start Date Coverage End Date [facility] [address] [place] [phone] [id number] CHARO FUCHS Self - patient is the insured MEDICAL (GENERAL) HISTORY Medical History History ICD Code Hypertension Hyperlipidemia Elevated blood sugars Hypothyroidism Elevated body mass index Gastroesophageal reflux disease Disc disease Sciatica Colonoscopy 02/25, 5 mm tubular adenoma, five-year followup Surgical History Surgery Date(Month/Year)
--- OUTSIDE RECORDS SUMMARY | 2024-05-07 17:14 | XMS_ITS | Clinical Summary ---
Author Organization [facility] Address [address] [place] [address] Care Team Providers Care Machine Room Engineer Name Role Phone Unavailable Primary Care Provider [...]
--- OUTSIDE RECORDS SUMMARY | 2024-05-07 17:15 | XMS_ITS ---
Author Organization Slade Martinez DO, FACP Address [address] [place], [place] [id number] Care Team Providers Care Vice President Risk Management Name Role Phone Slade Martinez Primary Care [...] day Active Vitamin D (Ergocalciferol) 1.25 MG (71643 UT) 1 capsule Orally Once a week [...] Location Date Provider Diagnosis Slade Martinez DO, [address] [phone] 02/01/2024 Slade Martinez Essential hypertensi on I10 [...] day Vitamin D (Ergocalciferol) 1 .25 MG (67384 UT) 1 capsule Orally Once a week [...]
--- OUTSIDE RECORDS SUMMARY | 2024-05-07 17:15 | XMS_ITS ---
Author Organization [facility] Address [address] [place] [phone] Care Team Providers Care Picture Booker Name Role Phone Juan (RETIRED) Slade MEADE Primary Care Provid er Unavailable Rodney Hernandez, Damon Florez [phone] REASON FOR VISIT colonoscopy Encounters Encounter Location Date Provider Diagnosis [facility] [address] [facility] [address] [place] [phone] 04/29/2024 Damon Stevens Jr PLAN OF TREATMENT Next Appt Details Provider Name:Damon ortega Jr, 07/29/2024 07:30:00 AM, [address] [place] [address] , [place], [place], [phone],
== END 2024-05-07 15:16 | disposition home or self-care (01) ==
LOC: HO.CT 15:15
PROVIDERS: PCP Internal Medicine; Visit Provider Internal Medicine
DX: R22.1 Localized swelling, mass and lump, neck (principal)
CPT/HCPCS: 70491; Q9967

== ENCOUNTER → 2024-05-07 15:16 | Outpatient (BNV) | payer OTHER, SELFPAY | PROVIDERS: PCP Internal Medicine; Visit Provider Radiology Diagnostic Radiology | DX: R59.0 Localized enlarged lymph nodes (principal) | CPT/HCPCS: 70491 ==

== ENCOUNTER 2024-05-19 12:47 | Outpatient (REF) | payer OTHER, SELFPAY ==
--- NOTE | ~2024-05-19 | XR_ITS ---
EXAMINATION: XR KNEE 1-2 VIEWS RIGHT, XR KNEE 1 VIEW RIGHT HISTORY: M25.569 - Pain in unspecified knee COMPARISON: Comparison is made with the prior examination dated 04/15/2024. FINDINGS: Standing AP views of the bilateral knees and additional sunrise patellar view of the right knee are submitted. Osseous mineralization is normal. There is no fracture or dislocation. There is mild to moderate tricompartmental osteoarthritis with joint space narrowing and osteophyte formation. The soft tissues are unremarkable. XR/XR knee RT 2V IMPRESSION: Mild to moderate tricompartmental osteoarthritis. Electronically signed by: Slade Ritter MD 05/19/2024 02:24 PM NESTOR
--- NOTE | ~2024-05-19 | XR_ITS ---
EXAMINATION: XR KNEE 1-2 VIEWS RIGHT, XR KNEE 1 VIEW RIGHT HISTORY: M25.569 - Pain in unspecified knee COMPARISON: Comparison is made with the prior examination dated 04/15/2024. FINDINGS: Standing AP views of the bilateral knees and additional sunrise patellar view of the right knee are submitted. Osseous mineralization is normal. There is no fracture or dislocation. There is mild to moderate tricompartmental osteoarthritis with joint space narrowing and osteophyte formation. The soft tissues are unremarkable. XR/XR knee RT 1V IMPRESSION: Mild to moderate tricompartmental osteoarthritis. Electronically signed by: Slade Ritter MD 05/19/2024 02:24 PM NESTOR
--- OUTSIDE RECORDS SUMMARY | 2024-05-19 14:07 | XMS_ITS | Clinical Summary ---
Author Organization [facility] Address [address] [place] [address] Care Team Providers Care Acid Concentrator Name Role Phone Unavailable Primary Care Provider Unavailabl e Social History Tobacco Use Types Packs/Day Years Used Date Smoking Tobacco: Never Assessed Comments Unknown Sex and Gender Information Value Date Recorded Sex Assigned at Not on file Legal Sex Female 4:09 PM EST Gender Identity Not on file Sexual Orientation Not on file Plan of Treatment Health Maintenance Due Date Last Done Comments Breast Cancer Screening 1967 DTaP,Tdap,and Td Vaccines (1 - Tdap) 1974 Hepatitis B Vaccines (1 of 3 - 19+ 3-dose series) 1986 Cervical Cancer Screening: P ap Smear 02/07/1988 Pneumococcal Vaccine: 50+ Ye ars (1 of 1 - PCV) 2017 Zoster Vaccines (1 of 2) 2017 COVID-19 [...] patient's age to complete this topic Meningococcal B Vacine Aged Out No lo nger eligible based on patient's age to complete [...]
--- OUTSIDE RECORDS SUMMARY | 2024-05-19 14:07 | XMS_ITS | Patient Health Record ---
Author Organization Slade Martinez DO, FACP Address [address] [place] [phone] Care Team Providers Care Hourly Manager Name Role Phone Slade Martinez Primary Care Provider ALLERGIES No Known Allergies RESULTS Component Value Reference Range Notes MM tomosynthesis screening B I Reviewed date:07/18/2023 01:13:12 PM Interpretation:Benign Performing Lab: Notes/Report: [facility]'s [address] [place] [address] Mammography Report Signed Patient: Gia Dalal MR#: [id number] : 1965 Acct:[id number] Age/Sex: 58 / F ADM Date: 07/07/23 Loc: HO.MAMMO Attending Dr: Slade Martinez DO Ordering Physician: Slade Martinez DO Results: 2Benig n Findings Date of Service: 07/07/23 Follow Up: 1 Year From [facility] Mammogram Procedure(s): MM tomosynthesis screening BI Accession Number(s): [id number] cc: Slade Martinez DO EXAMINATION: MM SCREENING [...] by Geri Islas MD in OV> 07/17/23 1063 DD/ 0811 TD/TT: Web Development Intern: Complete Blood Count Auto Di ff Reviewed date:11/20/2023 09:17:43 AM Interpretation:Normal Performing Lab:[facility], [address] [place] [phone] Notes/Report: White Blood Count 6.7 4.8-10.8 X10*3/uL [...] NRBC Abs Auto 0.000 0.0-0.012 X10*3/uL Comprehensive Pelsor. Panel Fa Reviewed date:11/20/2023 10:38:09 AM Interpretation:Abnormal Performing Lab:[facility], [address] [place] [phone] Notes/Report: Sodium 140 135-145 mmol/L Potassium 3.0 3.3-5.1 mmol/L Chloride 100 96-108 mmol/L Carbon Dioxide 30 22-29 mmol/L Anion Gap 13 12-20 Blood Urea Nitrogen 16 9-16 mg/dL Creatinine 0.76 0.5-1.4 mg/dL Estimated Glomerular Filt Rate > 60 NOTE: For -Portuguese individuals, multiply the result by 1.210. Chronic [...] Panel Reviewed date:11/20/2023 10:38:09 AM Interpretation:Abnormal Performing Lab:[facility], [address] [place] [phone] Notes/Report: Triglycerides 198 <150 mg/dL Desirable Triglyceride: [...] Hormone Reviewed date:11/20/2023 10:38:09 AM Interpretation:Normal Performing Lab:[facility], [address] [place] [phone] Notes/Report: Thyroid Stimulating Hormone 2.74 0.32-4.0 uIU/ mL Note: A sustained TSH level above 2.5 uIU/mL may warrant further investigation. TSH 3rd Generation ([facility]) Complete Blood Count Auto Di ff Reviewed date:01/19/2024 08:51:42 PM Interpretation:Normal Performing Lab:[facility], [address] [place] [phone] Notes/Report: White Blood Count 5.3 4.8-10.8 X10*3/uL [...] te Reviewed date:01/19/2024 08:51:42 PM Interpretation:Normal Performing Lab:[facility], [address] [place] [phone] Notes/Report: Erythrocyte Sedimentation Rate 7 0-20 MM/HR Patients with polycythemia and many hemoglobin abnormalities may have depressed sed rates whereas patients with anemia may have elevated sed rates. Urinalysis and Microscopic Reviewed date:01/19/2024 08:51:42 PM Interpretation:Negative Performing Lab:[facility], [address] [place] [phone] Notes/Report: Color Urine Yellow Appearance Urine Clear PH 8.0 5.0-9.0 Glucose Urine UA Negative Negative mg/dL Urine Blood Negative Negative Specific [place] - Urine 1.020 1.005-1.025 Urine Protein Negative Neg-Trace mg/dL Urine Ketones Negative Negative mg/dL Nitrite Urine Negative Negative Leukocyte Esterase Urine Negative Negative RBC Urine 0-2 0-2 /HPF WBC Urine 0-5 0-5 /HPF Squamous Epithelial Cell Urine 6-10 0-2 /HPF Bacteria Urine None Seen None Seen Hyaline Casts Urine 0-2 0-2 /LPF Comprehensive Pelsor. Panel Fa Reviewed date:01/19/2024 08:53:05 PM Interpretation:Abnormal Performing Lab:[address] [phone] Notes/Report: Sodium 143 135-145 mmol/L Potassium 3.1 3.3-5.1 mmol/L Chloride 105 96-108 mmol/L Carbon Dioxide 29 22-29 mmol/L Anion Gap 12 12-20 Blood Urea Nitrogen 12 9-16 mg/dL Creatinine 0.67 0.5-1.4 mg/dL Estimated Glomerular Filt Rate > 60 NOTE: For -Portuguese individuals, multiply the result by 1.210. Chronic [...] Protein Reviewed date:01/19/2024 08:51:42 PM Interpretation:Normal Performing Lab:[address] [address] Notes/Report: C Reactive Protein < 0.10 < or = 0.50 mg/dL Lipid Panel Reviewed date:01/19/2024 08:52:17 PM Interpretation:Normal Performing Lab:[address] [phone] Notes/Report: Triglycerides 115 <150 mg/dL Desirable Triglyceride: [...] Total Reviewed date:01/19/2024 08:51:42 PM Interpretation:Normal Performing Lab:[facility], [address] [place] [phone] Notes/Report: Vitamin D 25-OH Total 59.0 >30 [...] Hormone Reviewed date:01/19/2024 08:51:42 PM Interpretation:Normal Performing Lab:[facility], [address] [place] [phone] Notes/Report: Thyroid Stimulating Hormone 1.73 0.32-4.0 uIU/ mL TSH 3rd Generation ([facility]) Microalbumin, Random Reviewed date:01/19/2024 08:51:42 PM Interpretation:Normal Performing Lab:[facility], [address] [place] [phone] Notes/Report: Creatinine Urine 129.31 Microalbumin Urine < 5.0 Microalbum/Creatinine Ratio Ur TNP <30 ug/mg cr Unable to calculate albumin/creatinine ratio due to low microalbumin or creatinine result. Rheumatoid Factor Reviewed date:01/19/2024 08:51:42 PM Interpretation:Negative Performing Lab:[facility], [address] [place] [phone] Notes/Report: Rheumatoid Factor < 13.0 <15.0 IU/mL Hemoglobin A1c Reviewed date:01/19/2024 08:53:19 PM Interpretation:Abnormal Performing Lab:[facility], [address] [place] [phone] Notes/Report: Hemoglobin A1c % 6.1 <6.0 % [...] average glucose, using the formula of the W2P-Iiapflk Average Glucose study (ADAG), Diabetes Care, Vol.31,#8, 2007 REASON FOR REFERRAL Reason CONCESSION MANAGER examination Diagnosis 1 Encounter for genera [...] Referred Provider Adilene Denis Referred Provider Specialty Coal Pipeline Operator General Notes Katharina Carroll 4 08:49:59 AM [...] Referring Provider Milton Name Juan [facility]erring Provider [facility] Referred Provider Damon Stevens Referred [...] day Active Vitamin D (Ergocalciferol) 1.25 MG (15478 UT) 1 capsule Orally Once a week [...] Problem Environmental allerg ies (Z91.09) Active confirmed 359997583 Problem Vitamin D deficiency (E55.9) Active confirmed 36721724 Problem Essential hypertensi on (I10) Active confirmed 66498411 Problem Acquired hypothyroid ism (E03.9) Active confirmed 825500989 Problem Morbid obesity due t o excess calories (E66.01) Active confirmed 882620542 Problem Acute pain of left k nee (M25.562) Active confirmed 88724443 Problem Sciatica of right si de (M54.31) Active confirmed 88247456 Problem Hypercholesterolemia (E78.00) Active confirmed 27644530 VITAL SIGNS Blood pressure diastolic 70 mm Hg 12/11/2023 Height 63.25 in 02/01/2024 Blood pressure systolic 116 mm Hg 12/11/2023 Weight 257 lbs 02/01/2024 BMI 45.16 kg/m2 02/01/2024 Encounters Encounter Location Date Provider Diagnosis Slade Martinez DO, [facility] [address] [place], [place] [phone] 12/04/2023 Slade Martinez DO, [facility] [address] [place], [place] [phone] 12/11/2023 Slade Martinez Encounter for genera l adult medical examination without abnormal findings Z00.00 ; Essential hypertension I10 ; Hypercholesterolemia E78.00 ; Acquired hypothyroidism E03.9 ; Vitamin D deficiency E55.9 ; Environmental allergies Z91.09 and Morbid obesity due to excess calories E66.01 Slade Martinez DO, [facility] [address] [place], [place] [phone] 06/15/2023 Slade Martinez DO, [facility] [address] [place], [place] [phone] 09/17/2023 Slade Martinez Essential hypertensi on I10 ; Acquired hypothyroidism E03.9 ; Vitamin D deficiency E55.9 and Environmental allergies Z91.09 Slade Martinez DO, [facility] [address] [place], [place] [phone] 11/20/2023 Slade Martinez DO, [facility] [address] [place], [place] [phone] 05/25/2023 Slade Martinez Essential hypertensi on I10 ; Hypercholesterolemia E78.00 ; Acquired hypothyroidism E03.9 ; Morbid obesity due to excess calories E66.01 ; Vitamin D deficiency E55.9 and Environmental allergies Z91.09 Slade Martinez DO, [facility] [address] [place], [place] [phone] 02/01/2024 Slade Martinez Essential hypertensi on I10 [...] Insured Coverage Start Date Coverage End Date [facility] [address] [place] [address] [id number] Gia Dalal Self - patient is the [...]
== END 2024-05-19 12:48 | disposition home or self-care (01) ==
LOC: HO.HOSX 12:47
PROVIDERS: PCP Internal Medicine; Visit Provider Physician Assistant
DX: M17.11 Unilateral primary osteoarthritis, right knee (principal)
CPT/HCPCS: 20610; 73560; 73562; J1010; J2003

== ENCOUNTER 2024-05-19 12:47 | Outpatient (AMB) | payer OTHER, SELFPAY ==
--- NOTE | 2024-05-19 13:04 | A.OFFVIS_ITS ---
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 Patient reports ongoing knee pain for many years. She mentions that her pain is all over her knee and it moves down to her ankle and foot. Patient states that her pain is worse when she is standing for too long, when laying down on her right side and driving. Patient has been taking Tylenol arthritis which has been getting better. Allergies No Known Allergies Allergy (Verified 05/19/24 13:19) Medication List - Last Reconciled 05/19/24 by Isaac Rodriguez PA-C aspirin 81 mg PO DAILY atorvastatin 20 mg PO DAILY azithromycin For 250 mg dose pack: take 500 mg today (day 1), then 250 mg for 4 days (days 2-5) PO benzonatate 200 mg PO BID PRN cephalexin mg PO DAILY PRN cetirizine 10 mg PO DAILY 90 days ergocalciferol (vitamin D2) 1,250 mcg PO QWEEK famotidine 20 mg PO DAILY levothyroxine mcg PO loratadine-pseudoephedrine 5-120 mg ER (Claritin-D 12 Hour) 1 tab PO Q12H meloxicam 15 mg PO DAILY montelukast 10 mg PO DAILY multivitamin 1 tab PO DAILY triamterene-hydrochlorothiazid 75-50 mg 1 tab PO DAILY HPI 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 She states the pain has been present for a long time, she states in the beginning of Apr she went to stand and had pain and could not stand up. She states she used a topical cream and used aleve and noticed her pain did subside. 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 Tenderness along the medial joint line and lateral retropatellar pain. ROM full with crepitus. Negative steinmans. No ligamentous laxity. NVI. Office Procedures AMB Joint Injection/Aspiration Joint Injection/Aspiration Primary Site: right knee Prep: site was prepped using aseptic technique, ethochloride spray was applied and injection warnings given Injected: 80 mg of, DepoMedrol, with 8 mL of, 1% plain lidocaine and in the joint Approach Used: anterolateral Procedure: The patient tolerated the procedure well and there was some relief with the local anesthesia Coding 99112 - Glenohumeral/Tronchanteric Bursa/Intraarticular Procedure code (CPT) selection complete Results Reviewed Results Reviewed: Xrays were obtained in the office today and personally reviewed by me of the right knee show moderate PF OA Assessment & Plan Assessment & Plan (1) Patellofemoral arthritis of right knee: Code(s): M17.11 - Unilateral primary osteoarthritis, right knee Category: Medical Plan: We discussed options today, which include steroid injection. We also discuss PT which was ordered today. The patient did consent to move forward with right knee injection, which was tolerated well.? I recommended rest, ice and elevation and OTC antiinflammatories prn for discomfort. If symptoms persist over the next 6-8 weeks, they will contact our office, otherwise, prn Orders: Orders PT Evaluation and Treatment Today M17.11 - Unilateral primary osteoarthritis, right knee XR knee RT 2V Today M25.569 - Pain in unspecified knee Coding Level of Care Code New Pt Level 3 (29167) Complex EM visit Add On G2211 Diagnoses Patellofemoral arthritis of right knee M17.11 CPT Codes Coding - Joint 7: 19045 - Glenohumeral/Tronchanteric Bursa/Intraarticular ([id number])
[2024-05-19 13:21] VITALS: BMI 47.1
--- OUTSIDE RECORDS SUMMARY | 2024-05-19 13:49 | XMS_ITS ---
Author Organization [facility] Address [address] [place] [phone] Care Team Providers Care String Laster Name Role Phone Juan (RETIRED) Slade MEADE [...] day for 30 day(s) Active Vitamin D 53300 UNIT 1 capsule Orally fo r 30 [...] unspecified whether esophagitis present (K21.9) Active confirmed 736948883 Problem Long-term use of aspirin therapy (Z79.82) Active confirmed 966872986 VITAL SIGNS BMI 45.31 kg/m2 03/27/2024 Blood pressure systolic 00 mm Hg 03/27/20 24 Blood pressure diastolic 00 mm Hg 024 Height 64 in 03/27/2024 Weight 264 lbs 03/27/2024 Encounters Encounter Location Date Provider Diagnosis [facility] [address] [facility] [address] [place] [phone] 03/27/2024 Damon Stevens Jr Gastroesophageal reflux disease, [...] Provider Name:Damon ortega Jr, 07/29/2024 07:30:00 AM, [address] [place] [address] , [place], [place], [phone], Progress Notes * Examination Category Sub-Category Detail Notes General Examination GENERAL APPEARANCE: in no ac [place] distress HEAD: normocephalic EYES: sclera non-icteric NECK/THYROID: no lymphadenopathy HEART: S1, S2 normal, no mu rmurs CHEST: normal shape and exp ansion LUNGS: clear to auscultatio n bilaterally ABDOMEN: soft, nontender, non distended, bowel sounds present, no organomegaly SKIN: anicteric EXTREMITIES: no clubbing, cyanosi s, or edema PSYCH: cognitive function i ntact ORAL CAVITY: mucosa moist
--- OUTSIDE RECORDS SUMMARY | 2024-05-19 13:50 | XMS_ITS | Patient Health Record ---
Author Organization Yeyo Moon MD Address [address] [place], [place] [phone] Care Team Providers Care Head Teller Name Role Phone Slade Martinez DO Primary [...] Insured Coverage Start Date Coverage End Date [facility] [address] [place] [id number] Gia Dalal Self - patient is the insured
--- OUTSIDE RECORDS SUMMARY | 2024-05-19 13:51 | XMS_ITS ---
Author Organization Slade Martinez DO FACJenniffer Address [address] [place], [place] [phone] Care Team Providers Care Supervisor Sewer System Name Role Phone Slade Martinez Primary Care Provider REASON FOR VISIT physical Encounters Encounter Location Date Provider Diagnosis Slade Martinez DO, FACP [address] [place] [phone] 12/04/2023 Slade Martinez PLAN OF TREATMENT No Information
--- OUTSIDE RECORDS SUMMARY | 2024-05-19 13:51 | XMS_ITS ---
Author Organization Slade Martinez DO FACP Address [address] [place], [place] [id number] Care Team Providers Care Medical Art Therapist Name Role Phone Slade Martinez Primary Care Provider ALLERGIES No Known Allergies REASON FOR REFERRAL Reason TWITCHELL OPERATOR examination Diagnosis 1 Encounter for genera l [...] Referred Provider Adilene Denis Referred Provider Specialty Medical Nurse General Notes Katharina Carroll 4 08:49:59 AM [...] day Active Vitamin D (Ergocalciferol) 1.25 MG (90850 UT) 1 capsule Orally Once a week [...] Location Date Provider Diagnosis Slade Martinez , [address] [phone] 12/11/2023 Slade Martinez Encounter for genera l [...] day Vitamin D (Ergocalciferol) 1 .25 MG (73243 UT) 1 capsule Orally Once a week [...] and avoid sweets Referrals Referral Date Details TWITCHELL OPERATOR examination, Oanh Razo 01/30/2024 01/30/2024, Skylar MCGINNIS [...] cog nitive function intact FEMALE GENITOURINARY: per TWITCHELL OPERATOR Consultation Request Notes Referral Date Referring Provider Referred Provider Not es 12/11/2023 Slade Martinez Rebekah TWITCHELL OPERATOR examin ation 12/11/2023 Slade Martinez Melissa CEE 12/11/2023 Slade Martinez Bernard F/U Col onoscopy
--- OUTSIDE RECORDS SUMMARY | 2024-05-19 13:51 | XMS_ITS ---
Author Organization Slade Martinez DO, FACP Address [address] [place], [place] [phone] Care Team Providers Care Ciso Name Role Phone Slade Martinez Primary Care [...] day Active Vitamin D (Ergocalciferol) 1.25 MG (83157 UT) 1 capsule Orally Once a week [...] Location Date Provider Diagnosis Slade Martinez DO, [address] [phone] 02/01/2024 Slade Martinez Essential hypertensi on I10 [...] day Vitamin D (Ergocalciferol) 1 .25 MG (45551 UT) 1 capsule Orally Once a week [...] New symptom(s) Telehealth Location of provider:: Pro neadr's home address Location of patient:: Address listed [...]
--- OUTSIDE RECORDS SUMMARY | 2024-05-19 13:51 | XMS_ITS | Patient Health Record ---
Author Organization [facility] Address [address] [place] [phone] Care Team Providers Care Application Services Manager Name Role Phone Juan (RETIRED) Slade MEADE [...] day for 30 day(s) Active Vitamin D 09489 UNIT 1 capsule Orally fo r 30 [...] Problem Colon cancer screening (Z12.11) Active confirmed 453288999 Problem Encounter for other preprocedural examination (Z01.818) Active confirmed 982620352 Problem Gastroesophageal reflux disease, unspecified whether esophagitis present (K21.9) Active confirmed 552358523 Problem Long-term use of aspirin therapy (Z79.82) Active confirmed 593329467 VITAL SIGNS Blood pressure diastolic 00 mm Hg 03/27/2024 Height 64 in 03/27/2024 Blood pressure systolic 00 mm Hg 03/27/2024 Weight 264 lbs 03/27/2024 BMI 45.31 kg/m2 03/27/2024 Encounters Encounter Location Date Provider Diagnosis [facility] [address] [place] [phone] 03/27/2024 Damon Stevens Jr Gastroesophageal reflux disease, unspecified whether esophagitis present K21.9 ; Colon cancer screening Z12.11 and Long-term use of aspirin therapy Z79.82 [facility] [address] [place] [phone] 04/29/2024 Damon Stevens Jr ASSESSMENTS Encounter Date [...] Conklin Manish ortega Jr, 07/29/2024 07:30:00 AM, [address] [place] [address] , [place], [place], [phone], Insurance Providers Payer Name Payer Address Payer Phone Subscriber Number Group Number Insured Name Patient Relationship to Insured Coverage Start Date Coverage End Date [facility] [address] [place] [phone] [id number] CHARO FUCHS Self - patient is the insured MEDICAL (GENERAL) HISTORY Medical History History ICD Code Hypertension Hyperlipidemia Elevated blood sugars Hypothyroidism Elevated body mass index Gastroesophageal reflux disease Disc disease Sciatica Colonoscopy 02/25, 5 mm tubular adenoma, five-year followup Surgical History Surgery Date(Month/Year)
--- OUTSIDE RECORDS SUMMARY | 2024-05-19 13:51 | XMS_ITS ---
Author Organization [facility] Address [address] [facility] [address] [place] [phone] Care Team Providers Care Medical Instructor Name Role Phone Juan (RETIRED) Slade MEADE Primary Care Provid er Unavailable Rodney Hernandez, Damon Florez REASON FOR VISIT colonoscopy Encounters Encounter Location Date Provider Diagnosis [facility] 10 [facility] [address] [place] [phone] 04/29/2024 Damon Stevens Jr PLAN OF TREATMENT Next Appt Details Provider Name:Damno ortega Jr, 07/29/2024 07:30:00 AM, [address] [place] [address] , [place], [place], [phone],
== END 2024-05-19 13:46 | disposition home or self-care (01) ==
PROVIDERS: PCP Internal Medicine; Visit Provider Physician Assistant
DX: M17.11 Unilateral primary osteoarthritis, right knee (principal)
CPT/HCPCS: 20610; 99203

== ENCOUNTER → 2024-05-19 13:07 | Outpatient (BNV) | payer OTHER, SELFPAY | PROVIDERS: PCP Internal Medicine; Visit Provider Radiology Diagnostic Radiology | DX: M17.11 Unilateral primary osteoarthritis, right knee (principal) | CPT/HCPCS: 73562 ==

== ENCOUNTER 2024-05-21 10:05 | Outpatient (AMB) | payer OTHER, SELFPAY ==
--- NOTE | 2024-05-21 10:06 | A.OFFPC_ITS ---
Vital Signs 05/21/24 10:20 Height 5 ft 3 in Weight 267 lb BMI 47.3 BP 144/62 H Blood Pressure Location Rt brachial Pulse 84 Pulse Source Pulse Oximeter Temp 96.9 F Pulse Oximetry (%) 95 Intake Visit Reasons: Review Ultrasound Intake Note: Looking for CT scan results Allergies No Known Allergies Allergy (Verified 05/23/24 16:02) Medication List - Last Reconciled 05/23/24 by Bolivar Katz MD aspirin 81 mg PO DAILY atorvastatin 20 mg PO DAILY cetirizine 10 mg PO DAILY 90 days ergocalciferol (vitamin D2) 1,250 mcg PO QWEEK famotidine 20 mg PO DAILY levothyroxine mcg PO meloxicam 15 mg PO DAILY montelukast 10 mg PO DAILY multivitamin 1 tab PO DAILY triamterene-hydrochlorothiazid 75-50 mg 1 tab PO DAILY Tobacco use date assessed: 05/05/24 Dental Screening Dental Screen Date: 05/05/24 HPI Review Ultrasound HPI Details 59-year-old female presents to the [facility] for a follow-up visit. She is accompanied by her . Patient was seen for a swelling under her neck in the last office visit. An ultrasound of the neck was requested which revealed 3 intraglandular vascular masses. A CT scan of the neck was read as IMPRESSION: 1. Lymphadenopathy throughout the neck b ilaterally, most significant in the left greater than right jugulodigastric levels. Lymphadenopathy within the superior mediastinum. 2. Marked enlargement of the right great er than left lacrimal glands. There is moderate right and mild left proptosis. There is enlargement of the extraocular muscle bellies in the right orbit. 3. Aside from mild fatty change of the p arotid glands, no salivary gland lesions. Recent left neck focused ultrasound was imaging level II lymph nodes. 4. Overall, constellation of findings moody ggests possible lymphoproliferative disorder, with major differential of inflammatory lymphadenopathy with dacryoadenitis (i.e. Sarcoidosis, Sjogren's syndrome). Involvement of right extraocular muscles highly suggest SARCOIDOSIS. 5. Nonspecific 4 mm left pulmonary upper lobe nodule. Given above findings consider correlation with CT chest. Subsequently, patient had a swelling in the right eye and she was seeing an cranberry grower. He has performed a biopsy in the right upper eyelid and the biopsy report is pending. The knee pain that she had complained in the last office visit has subsided. 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 Slade Cartwright, Soraya Maldonado, Luis Miguel Ames and colleagues, with an educational mera from [employer]. Physical exam (Primary Care) Vital Signs: Last Vital Signs Temp 96.9 F 05/21/24 10:20 Pulse 84 05/21/24 10:20 BP 144/62 H 05/21/24 10:20 Pulse Ox 95 05/21/24 10:20 BMI result Body Mass Index 47.3 Tobacco/Smoking Status: Tobacco use Status Tobacco use date assessed 05/05/24 05/21/24 10:07 Patient Tobacco Use Status Never used Tobacco 05/21/24 10:07 e-Cigarette/Vaping Use Never Used 05/21/24 10:07 Thrive Assessment: Date of Thrive Assessment Date Thrive assessed 05/05/24 05/21/24 10:07 Const General: cooperative and healthy appearing Nutritional Appearance: well nourished Orientation/consciousness: patient oriented x3 Limitations: no limitations HENMT Head: Yes normal to inspection Eyes General: appearance normal, both eyes and all related structures Neck Other: Neck: Swelling has not decreased in size compared to the last office visit. Neck: Yes normal visual inspection Chest Chest palpation & inspection: normal palpation of entire chest wall Resp Effort & Inspection: normal respiratory effort Neuro General: patient oriented x3 Coding Level of Care Code Est Pt Level 4 (48404) Complex EM visit Add On G2211 Diagnoses Sarcoidosis D86.9 Assessment & Plan Assessment & Plan (1) Sarcoidosis: Code(s): D86.9 - Sarcoidosis, unspecified Category: Medical Plan: Diagnostic imaging points towards a diagnosis of sarcoidosis. I am awaiting the biopsy results from the eye doctor. A rheumatology consult has been requested. Patient has been offered supportive care. Orders: Orders XR chest 2V 05/21/24 R05.9 - Cough, unspecified CT chest w IV con Today D86.9 - Sarcoidosis, unspecified Referrals Rheumatology Referral D86.9 - Sarcoidosis, unspecified
[2024-05-21 10:20] VITALS: BP 144/62; PULSE 84; TEMP 36.1; O2SAT 95; BMI 47.3
--- OUTSIDE RECORDS SUMMARY | 2024-05-21 11:54 | XMS_ITS ---
Author Organization Slade Martinez DO FACP Address [address] [place], [place] [id number] Care Team Providers Care Corrections Officer Name Role Phone Slade Martinez Primary Care Provider [phone] ALLERGIES No Known Allergies REASON FOR REFERRAL Reason RISK ADJUSTMENT SPECIALIST examination Diagnosis 1 Encounter for genera l [...] Referred Provider Adilene Denis Referred Provider Specialty Transport Nurse General Notes Katharina Carroll 4 08:49:59 AM EDT > Fax sent prior to scheduling, Mireya Gary 12/26/2023 04:06:50 PM EDT > LMVM for [...] day Active Vitamin D (Ergocalciferol) 1.25 MG (80148 UT) 1 capsule Orally Once a week [...] Location Date Provider Diagnosis Slade Martinez , [address] [phone] 12/11/2023 Slade Martinez Encounter for genera l [...] day Vitamin D (Ergocalciferol) 1 .25 MG (14142 UT) 1 capsule Orally Once a week [...] and avoid sweets Referrals Referral Date Details RISK ADJUSTMENT SPECIALIST examination, Oanh Razo 01/30/2024 01/30/2024, Skylar MCGINNIS [...] cog nitive function intact FEMALE GENITOURINARY: per RISK ADJUSTMENT SPECIALIST Consultation Request Notes Referral Date Referring Provider Referred Provider Not es 12/11/2023 Slade Martinez Rebekah RISK ADJUSTMENT SPECIALIST examin ation 12/11/2023 Slade Martinez Melissa CEE 12/11/2023 Slade Martinez Bernard F/U Col onoscopy
--- OUTSIDE RECORDS SUMMARY | 2024-05-21 11:54 | XMS_ITS ---
Author Organization Slade Martinez DO FACJenniffer Address [address] [place], [place] [phone] Care Team Providers Care Sales Program Manager Name Role Phone Slade Martinez Primary Care Provider [phone] REASON FOR VISIT physical Encounters Encounter Location Date Provider Diagnosis Slade Martinez DO, FACP [address] [place] [phone] 12/04/2023 Slade Martinez PLAN OF TREATMENT No Information
--- OUTSIDE RECORDS SUMMARY | 2024-05-21 11:54 | XMS_ITS | Patient Health Record ---
Author Organization Yeyo Moon MD Address [address] [place], [place] [phone] Care Team Providers Care Octave Board Assembler Name Role Phone Slade Martinez DO Primary [...] Insured Coverage Start Date Coverage End Date [facility] [address] [facility] [address] [place] [phone] [id number] Gia Dalal Self - patient is the insured
--- OUTSIDE RECORDS SUMMARY | 2024-05-21 11:54 | XMS_ITS | Clinical Summary ---
Author Organization [facility] Address [address] [place] [address] Care Team Providers Care Long Distance Billing Operator Name Role Phone Unavailable Primary Care Provider [...]
--- OUTSIDE RECORDS SUMMARY | 2024-05-21 11:54 | XMS_ITS | Patient Health Record ---
Author Organization [facility] Address [address] [place] [phone] Care Team Providers Care Rack Worker Name Role Phone Juan (RETIRED) Slade MEADE [...] day for 30 day(s) Active Vitamin D 33445 UNIT 1 capsule Orally fo r 30 [...] Problem Colon cancer screening (Z12.11) Active confirmed 579781049 Problem Encounter for other preprocedural examination (Z01.818) Active confirmed 574603036 Problem Gastroesophageal reflux disease, unspecified whether esophagitis present (K21.9) Active confirmed 432358729 Problem Long-term use of aspirin therapy (Z79.82) Active confirmed 511461976 VITAL SIGNS Blood pressure diastolic 00 mm Hg 03/27/2024 Height 64 in 03/27/2024 Blood pressure systolic 00 mm Hg 03/27/2024 Weight 264 lbs 03/27/2024 BMI 45.31 kg/m2 03/27/2024 Encounters Encounter Location Date Provider Diagnosis [facility] [address] [place] [phone] 03/27/2024 Damon Stevens Jr Gastroesophageal reflux disease, unspecified whether esophagitis present K21.9 ; Colon cancer screening Z12.11 and Long-term use of aspirin therapy Z79.82 [facility] [address] [place] [phone] 04/29/2024 Damon Stevens Jr ASSESSMENTS Encounter Date [...] Conklin Manish ortega Jr, 07/29/2024 07:30:00 AM, [address] [place] [address] , [place], [place], [phone], Insurance Providers Payer Name Payer Address Payer Phone Subscriber Number Group Number Insured Name Patient Relationship to Insured Coverage Start Date Coverage End Date [facility] [address] [place] [address] [phone] [id number] CHARO FUCHS Self - patient is the insured MEDICAL (GENERAL) HISTORY Medical History History ICD Code Hypertension Hyperlipidemia Elevated blood sugars Hypothyroidism Elevated body mass index Gastroesophageal reflux disease Disc disease Sciatica Colonoscopy 02/25, 5 mm tubular adenoma, five-year followup Surgical History Surgery Date(Month/Year)
--- OUTSIDE RECORDS SUMMARY | 2024-05-21 11:54 | XMS_ITS ---
Author Organization [facility] Address [address] [place] [phone] Care Team Providers Care Toolroom Attendant Name Role Phone Juan (RETIRED) Slade MEADE [...] day for 30 day(s) Active Vitamin D 92415 UNIT 1 capsule Orally fo r 30 [...] unspecified whether esophagitis present (K21.9) Active confirmed 930354208 Problem Long-term use of aspirin therapy (Z79.82) Active confirmed 430831113 VITAL SIGNS BMI 45.31 kg/m2 03/27/2024 Blood pressure systolic 00 mm Hg 03/27/20 24 Blood pressure diastolic 00 mm Hg 024 Height 64 in 03/27/2024 Weight 264 lbs 03/27/2024 Encounters Encounter Location Date Provider Diagnosis [facility] [address] [facility] [address] [place] [phone] 03/27/2024 Damon Stevens Jr Gastroesophageal reflux disease, [...] Provider Name:Damon ortega Jr, 07/29/2024 07:30:00 AM, [address] [place] [address] , [place], [place], [phone], Progress Notes * Examination Category Sub-Category Detail Notes General Examination GENERAL APPEARANCE: in no ac timbi-sha [place] distress HEAD: normocephalic EYES: sclera non-icteric NECK/THYROID: no lymphadenopathy HEART: S1, S2 normal, no mu rmurs CHEST: normal shape and exp ansion LUNGS: clear to auscultatio n bilaterally ABDOMEN: soft, nontender, non distended, bowel sounds present, no organomegaly SKIN: anicteric EXTREMITIES: no clubbing, cyanosi s, or edema PSYCH: cognitive function i ntact ORAL CAVITY: mucosa moist
--- OUTSIDE RECORDS SUMMARY | 2024-05-21 11:55 | XMS_ITS ---
Author Organization Slade Martinez DO, FACP Address [address] [place], [place] [phone] Care Team Providers Care Manager Of Development Name Role Phone Slade Martinez Primary Care [...] day Active Vitamin D (Ergocalciferol) 1.25 MG (85010 UT) 1 capsule Orally Once a week [...] Location Date Provider Diagnosis Slade Martinez DO, [address] [phone] 02/01/2024 Slade Martinez Essential hypertensi on I10 [...] day Vitamin D (Ergocalciferol) 1 .25 MG (10292 UT) 1 capsule Orally Once a week [...]
--- OUTSIDE RECORDS SUMMARY | 2024-05-21 11:55 | XMS_ITS ---
Author Organization [facility] Address [address] [place] [phone] Care Team Providers Care Sales Representative [employer]ather Goods Name Role Phone Juan (RETIRED) Slade MEADE Primary Care Provid er Unavailable Rodney Hernandez, Damon Florez [phone] REASON FOR VISIT colonoscopy Encounters Encounter Location Date Provider Diagnosis [facility] [address] [facility] [address] [place] [phone] 04/29/2024 Damon Stevens Jr PLAN OF TREATMENT Next Appt Details Provider Name:Damon ortega Jr, 07/29/2024 07:30:00 AM, [address] [place] [address] , [place], [place], [phone],
== END 2024-05-21 10:51 | disposition home or self-care (01) ==
LOC: HO.HMCSH 10:05
PROVIDERS: PCP Internal Medicine; Visit Provider Internal Medicine
DX: D86.9 Sarcoidosis, unspecified (principal)

== ENCOUNTER 2024-06-14 08:03 | Outpatient (REF) | payer OTHER, SELFPAY ==
--- NOTE | ~2024-06-14 | XR_ITS ---
EXAMINATION: XR CHEST 2 VIEWS HISTORY: R05.9 - Cough, unspecified COMPARISON: Comparison is made with the prior examination dated 04/29/2019. FINDINGS: PA and lateral views of the chest are submitted. There is linear subsegmental atelectasis at the left lung base. The right lung is clear. There is no pleural effusion, pneumothorax, or pulmonary vascular congestion. The heart is normal in size. The bones are intact. XR/XR chest 2V IMPRESSION: Subsegmental atelectasis at the left lung base. Electronically signed by: Slade Ritter MD 06/16/2024 03:35 PM EDT
--- OUTSIDE RECORDS SUMMARY | 2024-06-14 08:09 | XMS_ITS ---
Author Organization [facility] Address [address] [place] [phone] Care Team Providers Care Personal Injury Attorney Name Role Phone Juan (RETIRED) Slade MEADE Primary Care Provid er Unavailable Damon Stevens Jr Unavailable [phone] Allergies Allergen (clinical drug ingredient) Drug/Non Drug Allergy documented on EMR Reaction Allergy Type Onset Date Status seasonal (uncoded) Unknown Allergy A ctive REASON FOR VISIT Patient presents today for consultation Medications Medication SIG (Take, Route, Frequency, Duration) Notes Start Date End Date Status Multivitamin Adults - as directed Orally Active Aspir-Low 81 MG 1 tablet Orally Once a day for 30 day(s) Active Vitamin D 81803 UNIT 1 capsule Orally fo r 30 [...] day for 30 day(s) every day Active Social History Tobacco Use: Social History Observation Description Date Details (start date - stop date) Never Smoker NA - NA Tobacco Use/Smoking Question Answer Notes Patient is [...] Never (0 point) Points 0 Interpretation Negative Problems Problem Type SNOMED Code ICD Code Onset Dates Problem Status W/U Status Risk Notes Problem 309911367 Gastroesophageal reflux disease, unspecified whether esophagitis present (K21.9) Active confirmed Problem 942132824 Long-term use of aspirin therapy (Z79.82) Active confirmed Vital Signs Blood pressure systolic 00 mm Hg 03/27/20 24 Blood pressure diastolic 00 mm Hg 024 Height 64 in 03/27/2024 Weight 264 lbs 03/27/2024 BMI 45.31 kg/m2 03/27/2024 Encounters Encounter Location Date Provider Diagnosis [facility] [address] [place] [phone] 03/27/2024 Damon Stevens Jr Gastroesophageal reflux disease, unspecified whether esophagitis present K21.9 ; Colon cancer screening Z12.11 and Long-term use of aspirin therapy Z79.82 Assessments Encounter Date Diagnosis (ICD Code) Assessment Notes Treatment Notes Treatment Clinical Notes Section Notes 03/27/2024 Gastroesophageal reflux disease, unspecified whether esophagitis present (ICD-10 - K21.9) Endoscopy material was printed We discussed gastroesophageal reflux disease today. We discussed diet, lifestyle modifications, and weight management. We recommended further evaluation with upper endoscopy. She understands risks and benefits and agrees to proceed. This will be scheduled at her convenience. She is due for colonoscopy. This will be arranged at the same time. She is advised to stop aspirin one week before the procedure and diuretics the day before the procedure. 03/27/2024 Colon cancer screening (ICD-10 - Z12.11) We discussed gastroesophageal reflux disease today. We discussed diet, lifestyle modifications, and weight management. We recommended further evaluation with upper endoscopy. She understands risks and benefits and agrees to proceed. This will be scheduled at her convenience. She is due for colonoscopy. This will be arranged at the same time. She is advised to stop aspirin one week before the procedure and diuretics the day before the procedure. 03/27/2024 Long-term use of aspirin therapy (ICD-10 - Z79.82) We discussed gastroesophageal reflux disease today. We discussed diet, lifestyle modifications, and weight management. We recommended further evaluation with upper endoscopy. She understands risks and benefits and agrees to proceed. This will be scheduled at her convenience. She is due for colonoscopy. This will be arranged at the same time. She is advised to stop aspirin one week before the procedure and diuretics the day before the procedure. Plan Of Treatment Treatment Notes Assessment Notes Gastroesophageal reflux dise ase, unspecified whether esophagitis present Endoscopy material was printed Future Test Test Name Order Date UPPER GI ENDOSCOPY 03/27/2024 COLONOSCOPY 03/27/2024 Next Appt Details Follow Up: 1 Year, Reason: Provider Name:Damon ortega , 07/29/2024 07:30:00 AM, [address] [place] [address], [phone], Progress Notes * YOCASTA FUCHSB:[birth year] (59 yo F)Acc No.[id number]:03/27/2024 Progress Notes Patient:?JORGE FUCHS Provider:?Damon Stevens MD :1965???Age:59 Y???Sex:Female D ate:03/27/2024 Address:[address] [place], [place] [phone] Pcp:Slade Martinez, DO Subjective: * Chief Complaints: * ???1. Patient presents today for consultation. * HPI: ???New symptom(s):? The patient is a pleasant 59-year-old woman seen today in consultation. She has a long-standing history of gastroesophageal reflux disease with substernal burning precipitated by typical foods including spicy foods and fatty foods. Symptoms have been generally well-controlled on famotidine 20 mg daily. She has no dysphagia, hematemesis, or melena. Weight and appetite have been stable. She has never undergone endoscopy. ?She also has a history of colon polyps and last underwent colonoscopy in February 2019 with removal of a small tubular adenoma followup colonoscopy is due. She has no complaints of rectal bleeding, abdominal or rectal pain. Bowel movements are generally normal. * ROS:?General/Constitutional:?Change in appetite?denies.?Fatigue?denies.?ENT:?Patient denies?difficulty swallowing.?Respiratory:?Patient denies?shortness of breath.?Cardiovascular:?Patient denies?chest pain.?Gastrointestinal:?Comments?See HPI for details.?Genitourinary:?Difficulty urinating?denies.?Incontinence?denies.?Musculoskeletal:?Patient denies?muscle aches.?Skin:?Patient denies?pruritis.?Neurologic:?Patient denies?low back pain.?Psychiatric:?Patient denies?mental or physical abuse.? * Medical History:?Hypertensio n, Hyperlipidemia, Elevated blood sugars, Hypothyroidism, Elevated body mass index, Gastroesophageal reflux disease, Disc disease, Sciatica, Colonoscopy 02/25, 5 mm tubular adenoma, five-year followup. * Family History:?Father: dece ased, diagnosed with Diabetes, HTN (hypertension).?Mother: , diagnosed with HTN (hypertension), Diabetes.?Maternal Grand Father: , diagnosed with Colon cancer.? * Social History:?Tobacco Use:?Tobacco Use/Smoking?Patient is a?nonsmoker.?Drugs/Alcohol:?Alcohol Screen?Did you have a drink containing alcohol in the past year??Yes,?How often did you have a drink containing alcohol in the past year??Never (0 point),?How many drinks did you have on a typical day when you were drinking in the past year??1 or 2 drinks (0 point),?How often did you have 6 or more drinks on one occasion in the past year??Never (0 point),?Points?0,?Interpretation?Negative.?Miscellaneous:?Marital status: . 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 * Medications:?Taking [place] ast Sodium 10 MG Tablet 1 tablet Orally Once a day, Taking Levothyroxine Sodium 75 MCG Tablet TK 1 T PO QAM ON AN EMPTY STOMACH Oral , Taking Triamterene-HCTZ 75-50 MG Tablet TK 1 T PO ONCE D IN THE MORNING Oral , Taking Atorvastatin Calcium 20 MG Tablet TK 1 T PO ONCE D Oral , Taking Vitamin D 46038 UNIT Capsule 1 capsule Orally , Taking Aspir-Low 81 MG Tablet Delayed Release 1 tablet Orally Once a day, Taking Multivitamin Adults - Tablet as directed Orally , Taking ZyrTEC Allergy 10 MG Tablet 1 tablet Orally Once a day, Taking Stool Softener 100 MG Capsule 1 capsule as needed Orally Once a day, Notes: every day, Taking Famotidine 20 MG Tablet Disintegrating as directed Orally , Discontinued Cyclobenzaprine HCl 10 MG Tablet TK 1 T PO TID Oral , Discontinued methylPREDNISolone 4 MG Tablet Oral , Discontinued Vitamin C 500 MG Capsule as directed Orally , Discontinued Colyte with Flavor Packs 240 GM Solution Reconstituted As directed Orally Over the specified time., Medication List reviewed and reconciled with the patient * Allergies:?Seasonal. Objective: * Vitals:?Wt: 264 lbs, Ht: 64 in, BMI:45.31 Index, BP: 00/00 mm Hg. * Examination: ???General Examination: ?GENERAL APPEARANCE:?in no acute distress.?HEAD:?normocephalic.?EYES:?sclera non-icteric.?ORAL CAVITY:?mucosa moist.?NECK/THYROID:?no lymphadenopathy.?SKIN:?anicteric.?HEART:?S1, S2 normal, no murmurs.?LUNGS:?clear to auscultation bilaterally.?CHEST:?normal shape and expansion.?ABDOMEN:?soft, nontender, nondistended, bowel sounds present, no organomegaly .?EXTREMITIES:?no clubbing, cyanosis, or edema.?PSYCH:?cognitive function intact.? Assessment: * Assessment: 1.?Gastroesophageal reflux d isease, unspecified whether esophagitis present - K21.9 (Primary)?2.?Colon cancer screening - Z12.11?3.?Long-term use of aspirin therapy - Z79.82? We discussed gastroesophagea l reflux disease today. We discussed diet, lifestyle modifications, and weight management. We recommended further evaluation with upper endoscopy. She understands risks and benefits and agrees to proceed. This will be scheduled at her convenience. She is due for colonoscopy. This will be arranged at the same time. She is advised to stop aspirin one week before the procedure and diuretics the day before the procedure. Plan: * Treatment: ?Procedure: COLONOSCOPY (Ordered for 03/27/2024)* Alyssa Bruce 03/28/2024 0 7:22:46 AM EST > Pt's procedure's are scheduled for Sunday05/27/24 at 8:20am. Thanks Notes: Endoscopy material was printed??2.?Colon cancer screening?Procedure: UPPER GI ENDOSCOPY (Ordered for 03/27/2024)* Alyssa Bruce 03/28/2024 0 7:36:04 AM EST > Pt's procedure's are scheduled for Sunday05/27/24 at 8:20am. Thanks ?Procedure: COLONOSCOPY (Ordered for 03/27/2024)* Alyssa Bruce 03/28/2024 0 7:22:46 AM EST > Pt's procedure's are scheduled for Sunday05/27/24 at 8:20am. Thanks * Procedure Codes:?3017F COLOR ECTAL CA SCREEN DOC REV, G9903 Pt scrn tbco id as non user * Preventive Medicine:? ??Counseling:?Care goal follow-up plan:?Above Normal BMI Follow-up?Giving encouragement to exercise,?BMI management provided?Yes.? * Follow Up:?1 Year * * Sign off status: Completed true * Provider:?Damon Stevens MD Date:?1 05/28/2023 Generated for Marta jeff/Sayra/eTransmitting on:?06/14/2024 08:09 AM EST History and Physical Notes * HPI (History of Present Illness) Category Sub-Category Detail Notes Category Not es New symptom(s) The patient is a pleasant 59-year-old woman seen today in consultation. She has a long-standing history of gastroesophageal reflux disease with substernal burning precipitated by typical foods including spicy foods and fatty foods. Symptoms have been generally well-controlled on famotidine 20 mg daily. She has no dysphagia, hematemesis, or melena. Weight and appetite have been stable. She has never undergone endoscopy. She also has a history of colon polyps and last underwent colonoscopy in February 2019 with removal of a small tubular adenoma followup colonoscopy is due. She has no complaints of rectal bleeding, abdominal or rectal pain. Bowel movements are generally normal. Examination Category Sub-Category Detail Notes Category Not es General Examination GENERAL APPEARANCE: in no acute di stress HEAD: normocephalic EYES: sclera non-icteric NECK/THYROID: no lymphadenopathy HEART: S1, S2 normal, no mu rmurs CHEST: normal shape and exp ansion LUNGS: clear to auscultatio n bilaterally ABDOMEN: soft, nontender, non distended, bowel sounds present, no organomegaly SKIN: anicteric EXTREMITIES: no clubbing, cyanosi s, or edema PSYCH: cognitive function i ntact ORAL CAVITY: mucosa moist
--- OUTSIDE RECORDS SUMMARY | 2024-06-14 08:10 | XMS_ITS | Patient Health Record ---
Author Organization [facility] Address [address] [place], [place] [phone] Care Team Providers Care Holter Technician Name Role Phone Slade Martinez DO Primary [...] Insured Coverage Start Date Coverage End Date [facility] [address] [place] [phone] [id number] Gia Dalal Self - patient is the insured
--- OUTSIDE RECORDS SUMMARY | 2024-06-14 08:10 | XMS_ITS | Clinical Summary ---
Author Organization [facility] Address [address] [place] [address] Care Team Providers Care Jewelry Estimator Name Role Phone Unavailable Primary Care Provider [...]
--- OUTSIDE RECORDS SUMMARY | 2024-06-14 08:10 | XMS_ITS | Patient Health Record ---
Author Organization [facility] Address [address] [place] [phone] Care Team Providers Care Shearing Shed Hand Name Role Phone Juan (RETIRED) Slade MEADE Primary Care Provid er Unavailable Damon Stevens Jr Unavailable Allergies Allergen (clinical drug ingredient) Drug/Non Drug Allergy documented on EMR Reaction Allergy Type Onset Date Status seasonal (uncoded) Unknown Allergy A ctive Reason For Referral No Information Medications Medication SIG (Take, Route, Frequency, Duration) Notes Start Date End Date Status Multivitamin Adults - as directed Orally Active Aspir-Low 81 MG 1 tablet Orally Once a day for 30 day(s) Active Vitamin D 27442 UNIT 1 capsule Orally fo r 30 [...] Unknown 02/08/2018 Administered Influenza Unknown 01/07/2018 Administered Social History Tobacco Use: Social History Observation [...] Problem Status W/U Status Risk Notes Problem 520554383 Colon cancer screening (Z12.11) Active confirmed Problem 216221245 Encounter for ot her preprocedural examination (Z01.818) Active confirmed Problem 374714640 Long-term use of aspirin therapy (Z79.82) Active confirmed Problem 990005586 Gastroesophageal reflux disease, unspecified whether esophagitis present (K21.9) Active confirmed Vital Signs Blood pressure diastolic 00 mm Hg 03/27/2024 Height 64 in 03/27/2024 Blood pressure systolic 00 mm Hg 03/27/2024 Weight 264 lbs 03/27/2024 BMI 45.31 kg/m2 03/27/2024 Encounters Encounter Location Date Provider Diagnosis [facility] [address] [place] [phone] 03/27/2024 Damon Stevens Jr Gastroesophageal reflux disease, unspecified whether esophagitis present K21.9 ; Colon cancer screening Z12.11 and Long-term use of aspirin therapy Z79.82 [facility] [address] [place] [phone] 04/29/2024 Damon Stevens Jr Assessments Encounter Date Diagnosis (ICD Code) Assessment Notes Treatment Notes Treatment Clinical Notes Section Notes 03/27/2024 Colon cancer screening (ICD-10 - Z12.11) [...] diuretics the day before the procedure. 03/27/2024 Gastroesophageal reflux disease, unspecified whether esophagitis [...] day before the procedure. Plan Of Treatment Future Test Test Name Order Date COLONOSCOPY 09/26/2018 UPPER GI ENDOSCOPY 03/27/2024 COLONOSCOPY 03/27/2024 Next Appt Details Provider Name:Damon ortega , 07/29/2024 07:30:00 AM, [address] [place] [address] , [place], [place], [phone], Insurance Providers Payer Name Payer Address Payer Phone Subscriber Number Group Number Insured Name Patient Relationship to Insured Coverage Start Date Coverage End Date [facility] [address] [place] [phone] [id number] CHARO FUCHS Self - patient is the insured Medical (General) History Medical History History ICD Code Hypertension Hyperlipidemia Elevated blood sugars Hypothyroidism Elevated body mass index Gastroesophageal reflux disease Disc disease Sciatica Colonoscopy 02/25, 5 mm tubular adenoma, five-year followup Surgical History Surgery Date(Month/Year)
--- OUTSIDE RECORDS SUMMARY | 2024-06-14 08:10 | XMS_ITS ---
Author Organization [facility] Address [address] [place] [phone] Care Team Providers Care Territory Manager General Sales Name Role Phone Juan (RETIRED) Slade MEADE Primary Care Provid er Unavailable Damon Stevens Jr REASON FOR VISIT screening colonoscopy, Gerd Encounters Encounter Location Date Provider Diagnosis [facility] [address] [place] [phone] 05/27/2024 Damon Stevens Jr Plan Of Treatment Next Appt Details Provider Name:Damon ortega Jr, 07/29/2024 07:30:00 AM, [address] [place] [address], [phone], Progress Notes * YOCASTA FUCHSB:[birth year] (59 yo F)Acc No.[id number]:05/27/2024 EGD&COL/MAC Patient:?JORGE FUCHS Provider:?Damon Stevens MD :1965???Age:59 Y???Sex:Female D ate:05/27/2024 Address:[address] [place], [place] [phone] Pcp:Slade Martinez (RETIRE D), DO Subjective: * Chief Complaints: * ???1. screening colonoscopy, Gerd. * Medical History:? Objective: * Vitals:? Assessment: Plan: * Treatment: * * The named appointment provid er may or may not be the originator of this progress note, and it is not deemed complete until electronically signed by the appointment provider. Sign off status: Pending * Provider:?Damon Stevnes MD Date:?0 05/27/2024 Generated for Marta jeff/Sayra/Joni on:?06/14/2024 08:10 AM EST
--- OUTSIDE RECORDS SUMMARY | 2024-06-14 08:10 | XMS_ITS ---
Author Organization [facility] Address [facility] [address] [place] [phone] Care Team Providers Care Mine Environmental Engineer Name Role Phone Juan (RETIRED) Slade MEADE Primary Care Provid er Unavailable Rodney Hernandez, Damon Florez REASON FOR VISIT colonoscopy Encounters Encounter Location Date Provider Diagnosis [facility] [address] [place] [phone] 04/29/2024 Damon Stevens Jr Plan Of Treatment Next Appt Details Provider Name:Damon ortega Jr, 07/29/2024 07:30:00 AM, [address] [place] [address] , [place], [place], [phone], Progress Notes * YOCASTA FUCHSB:[birth year] (59 yo F)Acc No.[id number]:04/29/2024 Patient:?JORGE FUCHS :1965???Age:59 Y???Sex:Female Address:[address] [place] [address], [address] * true * Date:? Generated for Printi tomer/Sayra/eTransmitting on:?06/14/2024 08:10 AM EST
== END 2024-06-14 08:04 | disposition home or self-care (01) ==
LOC: HO.XRAY 08:03
PROVIDERS: PCP Internal Medicine; Visit Provider Internal Medicine
DX: R05.9 Cough, unspecified (principal)
CPT/HCPCS: 71046

== ENCOUNTER → 2024-06-14 08:17 | Outpatient (BNV) | payer OTHER, SELFPAY | PROVIDERS: PCP Internal Medicine; Visit Provider Radiology Diagnostic Radiology | DX: J98.11 Atelectasis (principal) | CPT/HCPCS: 71046 ==

== ENCOUNTER 2024-06-17 10:58 | Outpatient (REF) | payer OTHER, SELFPAY ==
--- NOTE | ~2024-06-17 | CT_ITS ---
EXAMINATION: CT CHEST WITH CONTRAST CLINICAL INFORMATION: Sarcoidosis, unspecified. COMPARISON: No prior. Correlation made with CT soft tissue neck 05/07/2024. TECHNIQUE: Multidetector volumetric CT imaging of the chest was obtained after the administration of 65 mL of Omnipaque 350 intravenous contrast without immediate adverse reactions. Axial MIP volume rendering provided. Sagittal and coronal reformatted images were obtained. This CT examination was performed using dose optimization techniques as appropriate, variously including the following: *Automated exposure control *Adjustment of mA and/or kV according to patient size (this includes techniques or standardized protocols for targeted exams where dose is matched to indication/reason for exam; i.e. extremities or head) *Use of iterative reconstruction technique FINDINGS: NODULES: -Previously seen posterior left upper lobe 4 mm nodule has resolved. -No additional pulmonary nodules identified. -2 mm calcified granuloma in the right costophrenic sulcus (series 5, image 103). LUNGS: -Minimal linear atelectasis or scar in the left costophrenic sulcus and inferior lingula. -Lungs are clear. No abnormal opacities or consolidations. No perilymphatic nodules. -Small airways are normal. Central airways are patent. -No pleural effusion or pneumothorax. No pleural masses. MEDIASTINUM: -Previously seen adenopathy in the upper mediastinum has resolved. There are no abnormal lymph nodes present in the mediastinum or hilar regions. -Aorta is normal in caliber and course with 2 vessel branching pattern. No aneurysm. -Main pulmonary artery is normal. -Heart size is normal. No pericardial effusion. Mild coronary calcification. -The esophagus is normal. -Normal partially imaged thyroid. AXILLA/CHEST WALL: No lymphadenopathy. No masses. UPPER ABDOMEN: -Mild diffuse fatty infiltration of the liver. -Remainder of the upper abdominal contents included in the imaging appear normal. OSSEOUS STRUCTURES: -No suspicious lytic or blastic bone lesions. Mild spinal degenerative change. CT/CT chest w IV con IMPRESSION: 1. Previously seen 4 mm left posterior upper lobe lung nodule has resolved. There are no additional pulmonary nodules identified. The lungs are now clear without evidence of active disease. There are no sequela of sarcoidosis currently. 2. Previously seen mediastinal adenopathy has resolved. There are no current enlarged lymph nodes. 3. Mild fatty infiltration of the liver. Electronically signed by: Pal Enriquez MD 06/17/2024 11:53 AM EDT RP
[2024-06-17] MEDS: iohexoL 350 MG/ML 100 ML INFUS..BTL IV (11:29)
--- OUTSIDE RECORDS SUMMARY | 2024-06-17 13:31 | XMS_ITS ---
Author Organization [facility] Address [facility] [address] [place] [phone] Care Team Providers Care Mechanical Designer Name Role Phone Juan (RETIRED) Slade MEADE Primary Care Provid er Unavailable Rodney Hernandez, Damon Florez REASON FOR VISIT colonoscopy Encounters Encounter Location Date Provider Diagnosis [facility] [address] [place] [phone] 04/29/2024 Damon Stevens Jr Plan Of Treatment Next Appt Details Provider Name:Damon ortega Jr, 07/29/2024 07:30:00 AM, [address] [place] [address] , [place], [place], [phone], Progress Notes * YOCASTA FUCHSB:[birth year] (59 yo F)Acc No.[id number]:04/29/2024 Patient:?JORGE FUCHS :1965???Age:59 Y???Sex:Female Address:[address] [place] [address], [address] * true * Date:? Generated for Printi ng/Fadebig/eTransmitting on:?06/17/2024 01:31 PM EDT
--- OUTSIDE RECORDS SUMMARY | 2024-06-17 13:31 | XMS_ITS | Clinical Summary ---
Author Organization [facility] Address [address] [place] [address] Care Team Providers Care Dehydrogenation Supervisor Name Role Phone Unavailable Primary Care Provider [...]
--- OUTSIDE RECORDS SUMMARY | 2024-06-17 13:31 | XMS_ITS ---
Author Organization [facility] Address [address] [place] [phone] Care Team Providers Care Medical Charge Entry Specialist Name Role Phone Juan (RETIRED) Slade MEADE Primary Care Provid er Unavailable Damon Stevens Jr REASON FOR VISIT screening colonoscopy, Gerd Encounters Encounter Location Date Provider Diagnosis [facility] [address] [place] [phone] 05/27/2024 Damon Stevens Jr Plan Of Treatment Next Appt Details Provider Name:Damon ortega Jr, 07/29/2024 07:30:00 AM, [address] [place] [address], [phone], Progress Notes * JORGE FUCHSADOB:[birth year] (59 yo F)Acc No.[id number]:05/27/2024 EGD and COL/MAC Patient:?JORGE FUCHS Provider:?Damon Stevens MD :1965???Age:59 Y???Sex:Female D ate:05/27/2024 Address:[address] [place], [place] [phone] Pcp:Slade Martinez (RETIRE D), DO Subjective: * Chief Complaints: * ???1. screening colonoscopy, Gerd. * Medical History:? Objective: * Vitals:? Assessment: Plan: * Treatment: * * The named appointment provid er may or may not be the originator of this progress note, and it is not deemed complete until electronically signed by the appointment provider. Sign off status: Pending * Provider:?Damon Stevens MD Date:?0 05/27/2024 Generated for Marta jeff/Sayra/Joni on:?06/17/2024 01:31 PM EDT
--- OUTSIDE RECORDS SUMMARY | 2024-06-17 13:31 | XMS_ITS | Patient Health Record ---
Author Organization [facility] Address [address] [place] [phone] Care Team Providers Care Player Development Manager Name Role Phone Juan (RETIRED) Slade [...] day for 30 day(s) Active Vitamin D 44954 UNIT 1 capsule Orally fo r 30 [...] Problem Status W/U Status Risk Notes Problem 136200379 Colon cancer screening (Z12.11) Active confirmed Problem 252979388 Encounter for ot her preprocedural examination (Z01.818) Active confirmed Problem 487863495 Long-term use of aspirin therapy (Z79.82) Active confirmed Problem 389379920 Gastroesophageal reflux disease, unspecified whether esophagitis present (K21.9) Active confirmed Vital Signs Blood pressure diastolic 00 mm Hg 03/27/2024 Height 64 in 03/27/2024 Blood pressure systolic 00 mm Hg 03/27/2024 Weight 264 lbs 03/27/2024 BMI 45.31 kg/m2 03/27/2024 Encounters Encounter Location Date Provider Diagnosis [facility] [address] [place] [phone] 03/27/2024 Damon Stevens Jr Gastroesophageal reflux disease, unspecified whether esophagitis present K21.9 ; Colon cancer screening Z12.11 and Long-term use of aspirin therapy Z79.82 [facility] [address] [place] [phone] 04/29/2024 Damon Stevens Jr Assessments Encounter Date [...] Provider Name:Damon ortega , 07/29/2024 07:30:00 AM, [address] [place] [address] , [place], [place], [phone], Insurance Providers Payer Name Payer Address Payer Phone Subscriber Number Group Number Insured Name Patient Relationship to Insured Coverage Start Date Coverage End Date [facility] [address] [place] [phone] [id number] CHARO FUCHS Self - patient is the insured Medical (General) History Medical History History ICD Code Hypertension Hyperlipidemia Elevated blood sugars Hypothyroidism Elevated body mass index Gastroesophageal reflux disease Disc disease Sciatica Colonoscopy 02/25, 5 mm tubular adenoma, five-year followup Surgical History Surgery Date(Month/Year)
--- OUTSIDE RECORDS SUMMARY | 2024-06-17 13:31 | XMS_ITS ---
Author Organization [facility] Address [address] [place] [id number] Care Team Providers Care Copyright Clerk Name Role Phone Juan (RETIRED) Slade MEADE [...] day for 30 day(s) Active Vitamin D 36738 UNIT 1 capsule Orally fo r 30 [...] Problem Status W/U Status Risk Notes Problem [id number] Gastroesophageal reflux disease, unspecified whether esophagitis present (K21.9) Active confirmed Problem [id number] Long-term use of aspirin therapy (Z79.82) Active confirmed Vital Signs Blood pressure systolic 00 mm Hg 03/27/20 24 Blood pressure diastolic 00 mm Hg 024 Height 64 in 03/27/2024 Weight 264 lbs 03/27/2024 BMI 45.31 kg/m2 03/27/2024 Encounters Encounter Location Date Provider Diagnosis [facility] [address] [place] [id number] 03/27/2024 Damon Stevens Jr Gastroesophageal reflux disease, [...] Provider Name:Damon ortega , 07/29/2024 07:30:00 AM, [address] [place] [address], [phone], Progress Notes * YOCASTA FUCHSB:[birth year] (59 yo F)Acc No.[id number]:03/27/2024 Progress Notes Patient:?JORGE FUCHS Provider:?Damon Stevens MD :1965???Age:59 Y???Sex:Female D ate:03/27/2024 Address:[address] [place], [place] [id number] Pcp:Slade Martinez, DO Subjective: * Chief Complaints: [...] ONCE D Oral , Taking Vitamin D 39419 UNIT Capsule 1 capsule Orally , Taking [...] MD Date:?1 05/28/2023 Generated for Marta jeff/Sayra/eTransmitting on:?06/17/2024 01:31 PM EDT History and Physical Notes * HPI (History [...]
--- OUTSIDE RECORDS SUMMARY | 2024-06-17 13:31 | XMS_ITS | Patient Health Record ---
Author Organization Yeyo Moon MD Address [address] [place], [place] [id number] Care Team Providers Care Shape Carver Name Role Phone Slade Martinez DO Primary [...] Start Date Coverage End Date [facility] [address] [facility] [address] [place] [address] [phone] [id number] Gia Dalal Self - patient is the insured
[2024-06-18 07:58] LABS: Creatinine POC 0.9 mg/dL (0.5-1.4); GFR POC > 60
== END 2024-06-17 10:59 | disposition home or self-care (01) ==
LOC: HO.CT 10:58
PROVIDERS: PCP Internal Medicine; Visit Provider Internal Medicine
DX: D86.9 Sarcoidosis, unspecified (principal)
CPT/HCPCS: 71260; 82565; Q9967

== ENCOUNTER → 2024-06-17 11:00 | Outpatient (BNV) | payer OTHER, SELFPAY | PROVIDERS: PCP Internal Medicine; Visit Provider Radiology Diagnostic Radiology | DX: D86.9 Sarcoidosis, unspecified (principal); K76.0 Fatty (change of) liver, not elsewhere classified | CPT/HCPCS: 71260 ==

== ENCOUNTER 2024-07-21 16:00 | Outpatient (RCR) | payer OTHER, SELFPAY ==
--- NOTE | 2024-06-19 09:41 | MHC.PT.EP ---
[facility] [place] Office [place] Office [place] Office [address] Davis Espinoza [address] [phone] F: [phone] F: [phone] F: [phone] F: [phone] Physical Therapy Plan of Care Date of Evaluation: 06/18/24 Date of Surgery: N/A Diagnosis: patellofemoral arthritis of right knee (RL) Assessment: pt is a y/o male presenting to physical therapy w/ referring diagnosis of patellofemoral arthritis of right knee. Impairments include pain, decreased range of motion, decreased strength, impaired functional mobility, impaired postural awareness, and altered ambulation mechanics. pt is a good candidate for skilled PT due to age, potential remediation of impairments, typical disease/condition progression and prognosis, comorbidities, and motivation. pt would benefit from skilled PT intervention to provide a tailored strengthening and stretching exercise program, functional training, gait training, postural re-training, neuromuscular re-education, modalities as needed for pain, equipment safety demonstration. Frequency and Duration: The patient will be seen 2x/wk for 5 wks Short Term Goals: pt will be I w/ HEP to promote self-management of condition. pt will improve B quad strength by 1 MMT to promote ease in sit<>stand transfers. Chcf Goals: pt will ascend/descend 10 stairs w/ reciprocal pattern holding railing to promote access within home. pt will report <2/10 knee pain w/ ambulating 3x100' to promote improved tolerance for household ambulation. Treatment Plan: Modalities to reduce pain, spasms and effusion. Manual therapy to restore motion and function. Therapeutic exercise to improve strength and flexibility. Neuromuscular re-education for posture and balance. Therapeutic activities to return to functional activities of daily living. Electronically signed by: Soheila Duval PT, DPT Please sign and return to therapist. Thank you for your referral.
--- NOTE | 2024-08-15 15:12 | MHC.PT.DC ---
[facility] [place] Office [place] Office [place] Office [address] Davis Espinoza [address] [phone] F: [phone] F: [phone] F: [phone] F: [phone] Physical Therapy Discharge Report Diagnosis: patellofemoral arthritis of right knee (RL) Date of Surgery: N/A Date of Evaluation: 06/18/24 Date of Discharge: 08/15/24 Treatments to Date: 9 Cancellations to Date: 1 No Shows to Date: 0 Discharge Status: Improved Function Independent with HEP Patient Elected to Stop Discharge Summary: The patient was reporting near abolition of her knee pain. She cancelled her last scheduled visit and declined to follow-up any further. She is discharged from this plan of care. Electronically signed by: Soheila Duval PT, DPT Please sign and return to therapist. Thank you for your referral.
== END 2024-08-15 15:12 | disposition home or self-care (01) ==
LOC: HO.PT 16:00
PROVIDERS: PCP Internal Medicine; Visit Provider Physician Assistant
DX: M17.11 Unilateral primary osteoarthritis, right knee (principal)
CPT/HCPCS: 97110; 97140; 97162; 97530

== ENCOUNTER 2024-07-25 08:28 | Outpatient (AMB) | payer OTHER, SELFPAY ==
--- NOTE | 2024-07-25 08:43 | AM.OFFWIN_ITS ---
Intake Vital Signs 07/25/24 08:44 Height 5 ft 3 in Weight 274 lb BMI 48.5 BP 126/80 Blood Pressure Location Lt brachial Position Sitting Respiration 16 Pulse 86 Pulse Source Pulse Oximeter Temp 98.0 F Temp Source Oral Pulse Oximetry (%) 95 Oxygen Delivery Method Room Air Intake Visit Reasons: EP nasal congestion, sinus pain Intake Note: Pt is here today c/o nasal congestion and sinus pain x1.5wk Patient Tobacco Use Status: Never used Tobacco Allergies No Known Allergies Allergy (Verified 07/25/24 08:54) HPI HPI Comments History of Present Illness Details History - The patient is a 59-year-old female pr esenting with sinus, left facial and left ear pain. - Symptoms commenced approximately one a nd a half weeks ago with nasal discharge progressing to postnasal drip. - Recently, the nasal discharge became l ight yellowish-green with brown specks, accompanied by facial pain into the jaw. - An earache started today, localized to the left ear. - The patient employs Tylenol, Mucinex, and saline nasal spray to manage symptoms and takes allergy medication daily. - A preventive COVID-19 test one week pr ior was negative. 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 - The patient denies fevers, cough, shor tness of breath, or wheezing. Physical Exam General: Cooperative, healthy appearing, comfortable and no acute distress Orientation/consciousness: Patient oriented x3 Limitations: No limitations Head: Normal to inspection Ears: Hearing grossly normal bilaterally, external ears normal, TM's normal bilaterally Nose: Normal external nose present, Normal nares present, Nasal discharge present Face and sinus: Normal facial exam, Sinuses tender, TTP left cheek and jaw area Mouth: Normal oral and palatal mucosa present and moist mucous membranes Throat: Yes tonsils normal, Yes uvula midline. Posterior oropharynx erythema Eyes: Appearance normal, both eyes and all related structures Neck: Normal visual inspection Respiratory: Normal respiratory effort, able to speak in complete sentences, Actively coughing, no respiratory distress, not tachypneic, no tripod positioning and no use of accessory muscles Skin: No rashes or lesions noted Neuro: Patient oriented x3 Extremities: Normal to inspection and Yes no clubbing, cyanosis or edema PFSH Medical History (Updated 07/25/24 @ 09:00 by Cindy Merino PA-C) Sciatica Degenerative joint disease GERD (gastroesophageal reflux disease) Elevated blood sugar Hyperlipidemia IgG4 related disease Sarcoidosis Essential hypertension Allergic rhinitis Acquired hypothyroidism Surgical History (Updated 07/22/24 @ 07:53 by Dimple Beltran) History of colonoscopy (~02/28/19) Social History (Updated 05/19/24 @ 13:20 by Susan Brown) Housing: House Alcohol intake: never Patient Tobacco Use Status: Never used Tobacco e-Cigarette/Vaping Use: Never Used Second Hand Smoke Exposure: No service: No Current occupational status: employed 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 Cognitive needs: No Hearing needs: No Vision needs: Yes (Glasses) Review of Systems Const All systems reviewed & are unremarkable except as noted in HPI and below Physical Exam Vital Signs: Last Vital Signs Temp 98.0 F 07/25/24 08:44 Pulse 86 07/25/24 08:44 Resp 16 07/25/24 08:44 BP 126/80 07/25/24 08:44 Pulse Ox 95 07/25/24 08:44 Oxygen Delivery Method Room Air 07/25/24 08:44 BMI result Body Mass Index 48.5 Assessment & Plan Assessment & Plan (1) Acute bacterial sinusitis: Code(s): J01.90 - Acute sinusitis, unspecified; B96.89 - Other specified bacterial agents as the cause of diseases classified elsewhere Plan: VSS, pt well appearing and PE remarkable for sinus tenderness and facial tenderness on the left side. Ten days of symptoms, likely bacterial so the chosen treatment involves prescribing Augmentin, an antibiotic effective for acute bacterial sinusitis, to be taken every 12 hours over a seven-day period, given the duration and worsening of symptoms. Accompanying this measure, the patient should persist with using decongestants, saline nasal sprays, and Medi-Pot to aid in symptom relief and sinus drainage. A COVID-19 test conducted a week ago was negative, and exposure to positive cases is being monitored. Patient was informed and verbally consented to the use of an ambient scribe for clinic note documentation during this visit Medications: New amoxicillin-pot clavulanate 875-125 mg 1 tab PO Q12H 14 tabs 0RF Coding Level of Care Code Est Pt Level 3 (41900) Diagnoses Acute bacterial sinusitis J01.90; B96.89
[2024-07-25 08:44] VITALS: BP 126/80; PULSE 86; RESP 16; TEMP 36.7; O2SAT 95; BMI 48.5
--- OUTSIDE RECORDS SUMMARY | 2024-07-25 08:48 | XMS_ITS | Clinical Summary ---
[facility] Address [address] [place] [address] Care Team Providers Care Veneer Marker Name Role Phone Unavailable Primary Care Provider [...] - 2023-2 5 season) 2023 Influenza Vaccine (Season Ended) 2024 HIB Vaccines Aged Out No longer eligi [...] age to complete this topic Meningococcal B Vaccine Aged Out No l onger eligible based on patient's age to complete [...]
== END 2024-07-25 09:20 | disposition home or self-care (01) ==
PROVIDERS: PCP Internal Medicine; Visit Provider Physician Assistant
DX: J01.90 Acute sinusitis, unspecified (principal); B96.89 Other specified bacterial agents as the cause of diseases classified elsewhere

== ENCOUNTER → 2024-07-25 08:28 | Outpatient (BNVA) | payer OTHER, SELFPAY | PROVIDERS: PCP Internal Medicine; Visit Provider Physician Assistant ==

== ENCOUNTER 2024-07-29 05:50 | Day surgery (SDC) | payer OTHER, SELFPAY ==
[2024-07-23 14:32] VITALS: BMI 45.3
--- NOTE | 2024-07-25 09:14 | P.CONAN_ITS ---
Documented by User: Viola Schwartz NP 07/25/24 09:17 HPI - Anesthesia Eval Consult details Narrative: 59yo F for Upper Endoscopy and Colonoscopy Augmentin for sinus infection rx'd 07/25/24 PMFSH Active Problems Active Problems: All Active Problems Acute bacterial sinusitis (Acute) Patellofemoral arthritis of right knee (Acute) Eye swelling, right (Acute) Pre-op evaluation (Acute) General medical exam (Acute) Neck mass (Acute) Knee pain (Acute) IgG4 related disease (Acute) Sarcoidosis (Acute) Essential hypertension (Acute) Allergic rhinitis (Acute) Acquired hypothyroidism (Acute) Past Medical History Medical History (Updated 07/25/24 @ 09:00 by Cindy Merino PA-C) Sciatica Degenerative joint disease GERD (gastroesophageal reflux disease) Elevated blood sugar Hyperlipidemia IgG4 related disease Sarcoidosis Essential hypertension Allergic rhinitis Acquired hypothyroidism Surgical History Surgical History (Updated 07/22/24 @ 07:53 by Dimple Beltran) History of colonoscopy (~02/28/19) Social History Social History (Updated 05/19/24 @ 13:20 by Susan Brown) Housing: House Alcohol intake: never Patient Tobacco Use Status: Never used Tobacco e-Cigarette/Vaping Use: Never Used Second Hand Smoke Exposure: No Use of substances other than those prescribed or required for medical reasons: No Are you DNR?: No Advance Directives: No Advance Directives Information Provided: Yes service: No Current occupational status: employed 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 Cognitive needs: No Hearing needs: No Vision needs: Yes (Glasses) Meds Allergies Allergy/AdvReac Type Severity Reaction Status Date / Time No Known Allergies Allergy Verified 07/25/24 08:54 Home Medications ?Medication ?Instructions ?Recorded ?Confirmed ?Last Taken ?Type aspirin 81 mg tablet,delayed 81 mg PO DAILY 04/15/24 07/23/24 Unknown History release atorvastatin 20 mg tablet 20 mg PO DAILY 04/15/24 07/23/24 Unknown History ergocalciferol (vitamin D2) 1,250 1,250 mcg PO QWEEK 04/15/24 07/23/24 Unknown History mcg (50,000 unit) capsule famotidine 20 mg tablet 20 mg PO DAILY 04/15/24 07/23/24 Unknown History levothyroxine 75 mcg tablet 75 mcg PO DAILY 04/15/24 07/23/24 Unknown History montelukast 10 mg tablet 10 mg PO DAILY 04/15/24 07/23/24 Unknown History triamterene 75 1 tab PO DAILY 04/15/24 07/23/24 Unknown History mg-hydrochlorothiazide 50 mg tablet cetirizine 10 mg tablet (Zyrtec) 10 mg PO DAILY 07/23/24 07/23/24 Unknown History docusate sodium 100 mg capsule 100 mg PO DAILY 07/23/24 07/23/24 Unknown History (Colace) multivitamin 1 tab PO DAILY 07/23/24 07/23/24 Unknown History prednisone 10 mg tablet 20 mg PO DAILY 07/25/24 Unknown History Exam Height,Weight and Vital Signs: Height 5 ft 4 in Weight 119.748 kg Assessment and Plan Assessment Anesthesia Assessment: Chart Reviewed Documented by User: Danial Herring MD 07/29/24 07:13 [facility] Past Medical History Medical History (Updated 07/25/24 @ 09:00 by Cindy Merino PA-C) Sciatica Degenerative joint disease GERD (gastroesophageal reflux disease) Elevated blood sugar Hyperlipidemia IgG4 related disease Sarcoidosis Essential hypertension Allergic rhinitis Acquired hypothyroidism Family History Family history of problems with anesthesia: No Surgical History Surgical History (Updated 07/22/24 @ 07:53 by Dimple Beltran) History of colonoscopy (~02/28/19) History of Problems with Anesthesia: No Social History Social History (Updated 05/19/24 @ 13:20 by Susan Brown) Housing: House Alcohol intake: never Patient Tobacco Use Status: Never used Tobacco e-Cigarette/Vaping Use: Never Used Second Hand Smoke Exposure: No Use of substances other than those prescribed or required for medical reasons: No Are you DNR?: No Advance Directives: No Advance Directives Information Provided: Yes service: No Current occupational status: employed 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 Cognitive needs: No Hearing needs: No Vision needs: Yes (Glasses) Meds Allergies Allergy/AdvReac Type Severity Reaction Status Date / Time No Known Allergies Allergy Verified 07/25/24 08:54 Home Medications ?Medication ?Instructions ?Recorded ?Confirmed ?Last Taken ?Type aspirin 81 mg tablet,delayed 81 mg PO DAILY 04/15/24 07/23/24 Unknown History release atorvastatin 20 mg tablet 20 mg PO DAILY 04/15/24 07/23/24 Unknown History ergocalciferol (vitamin D2) 1,250 1,250 mcg PO QWEEK 04/15/24 07/23/24 Unknown History mcg (50,000 unit) capsule famotidine 20 mg tablet 20 mg PO DAILY 04/15/24 07/23/24 Unknown History levothyroxine 75 mcg tablet 75 mcg PO DAILY 04/15/24 07/23/24 Unknown History montelukast 10 mg tablet 10 mg PO DAILY 04/15/24 07/23/24 Unknown History triamterene 75 1 tab PO DAILY 04/15/24 07/23/24 Unknown History mg-hydrochlorothiazide 50 mg tablet cetirizine 10 mg tablet (Zyrtec) 10 mg PO DAILY 07/23/24 07/23/24 Unknown History docusate sodium 100 mg capsule 100 mg PO DAILY 07/23/24 07/23/24 Unknown History (Colace) multivitamin 1 tab PO DAILY 07/23/24 07/23/24 Unknown History prednisone 10 mg tablet 20 mg PO DAILY 07/25/24 Unknown History Exam Airway Mallampati Class: III TM Dist: >3cm Neck ROM: Full Assessment and Plan Assessment Anesthesia Assessment: Anesthesia Plan Discussed Final Anesthetic Review Family History of Problems with Anesthesia: No History of Problems with Anesthesia: No NPO: Yes ASA Class: III Final Preanesthetic Review: No Changes in Pt Med Stat, Meds/Allgs Chart Reviewed, Consent Obtained/Reviewed and Anes Risks/Benef Reviewed Patient Risk: Intermediate Procedure Risk: Low Anesthetic Plan Anesthetic Plan: TIVA Disposition: Standard PACU
[2024-07-29 06:46] VITALS: BMI 45.8
[2024-07-29 06:58] VITALS: BP 121/75; PULSE 88; RESP 18; TEMP 37.2; O2SAT 95
[2024-07-29] MEDS: Lactated Ringers 1,000 ML 100 ML IVCONT (07:14)
--- NOTE | 2024-07-29 07:27 | MHC.SHP ---
Pre-Procedural Eval Section A - 24 Hr Update-Section A only Date of Service: 07/29/24 Section B - Complete if H&P > 30 days Chief Complaint: gerd,screening Details of Present Illness: see H&P no changes Relevant Family History (Specify if Yes): No Relevant Social History: None Present Medications: see Short Stay Collaborative assessment Medical History: No relevant PMH History of Previous Operations: No relevant previous surgery Allergies: Allergies Allergy/AdvReac Type Severity Reaction Status Date / Time No Known Allergies Allergy Verified 07/25/24 08:54 Review of Systems Sugical H&P ROS: Negative: Constitution, Cardiovascular, Respiratory, Neurological, Psychiatric, Hem-Onc, Allergic/Immunologic, Gastrointestinal, Genitourinary, Musculoskeletal, Integumentary, Endocrine and Eyes/Ears/Nose/Throat Exam Surgical H&P Exam: Normal: HEENT, Normal: Heart, Normal: Lungs, Normal: Extremities, Normal: Abdomen, Normal: Skin and Normal: Neurological Plan Diagnosis/Plan: Unchanged I have reviewed the history and physical and performed a pertinent physical examination on my patient. No changes have occurred unless specified. Time Spent With Patient Time: Total time managing care of this patient today ____ minutes.
--- NOTE | 2024-07-29 08:06 | P.BOP_ITS ---
Brief Operative Note Date of Service: 07/29/24 Pre-op diagnosis: gerd screening Procedure: egd colon Surgeon: Damon Stevens MD Anesthesia: MAC Was an Truck Driver Salesperson used for this Procedure?: No Estimated blood loss (mL): 3 Pathology: other Condition: stable Disposition: PACU
[2024-07-29 08:07] VITALS: BP 95/66; PULSE 80; RESP 12; TEMP 36.5; O2SAT 94
[2024-07-29 08:22] VITALS: BP 108/75; PULSE 80; RESP 16; TEMP 36.5; O2SAT 97
--- NOTE | 2024-07-29 08:24 | OP_ITS ---
DATE OF SERVICE: 07/29/2024 SURGEON: Damon Stevens MD INDICATIONS: Cancer screening and gastroesophageal reflux disease. PREOPERATIVE DIAGNOSIS: POSTOPERATIVE DIAGNOSIS: PROCEDURE PERFORMED: ESTIMATED BLOOD LOSS: COMPLICATIONS: ANESTHESIA: Monitored anesthesia care. ASSISTANTS: SPECIMENS: PROCEDURES PERFORMED: 1. Upper endoscopy with biopsy. 2. Colonoscopy to the terminal ileum. DESCRIPTION OF PROCEDURE: A history and physical were performed. The risks and benefits of the procedure were explained to the patient. Informed consent was obtained. The patient was placed in the left lateral decubitus position. A digital rectal exam was performed and was found to be normal. The Olympus video gastroscope was introduced into the esophagus, stomach, and duodenum. Examination was performed, and the scope was removed. She tolerated the procedure well. She was repositioned for colonoscopy. The Olympus pediatric video colonoscope was introduced into the rectum and advanced to the cecum. The cecum was identified by transillumination, palpation, and identification of the ileocecal valve. Examination was performed, and the scope was removed. She tolerated both procedures well and was returned to recovery area in stable condition. FINDINGS: Upper endoscopy: 1. Esophagus: The esophagus was normal. There was no esophagitis. Biopsies were obtained from the EG junction. 2. Stomach: The stomach showed no evidence of masses, ulcers, or polyps. Antral biopsies were obtained. 3. Duodenum, the bulb and 2nd portion were normal. Colonoscopy: The terminal ileum was normal. The visualized colonic mucosa was normal. The quality of the prep was good. No polyps were identified. There was mild sigmoid diverticulosis. Retroflexed examination showed moderate-sized internal hemorrhoids. IMPRESSION: 1. Gastroesophageal reflux disease. 2. Normal colonoscopy. RECOMMENDATIONS: 1. Follow up as needed. 2. Repeat colonoscopy is recommended in 10 years for average-risk individuals. MD NISA Davis/AIMEE / [id number]
== END 2024-07-29 08:50 | disposition home or self-care (01) ==
PROVIDERS: PCP Internal Medicine; Visit Provider Internal Medicine Gastroenterology
PROC: (CPT 45378; principal; 2024-07-29 07:30)
DX: Z12.11 Encounter for screening for malignant neoplasm of colon (principal); Z86.0101 Personal history of adenomatous and serrated colon polyps; K21.9 Gastro-esophageal reflux disease without esophagitis; K29.50 Unspecified chronic gastritis without bleeding; I10 Essential (primary) hypertension; E78.5 Hyperlipidemia, unspecified; R73.9 Hyperglycemia, unspecified; E03.9 Hypothyroidism, unspecified; M54.30 Sciatica, unspecified side; J30.2 Other seasonal allergic rhinitis; Z79.82 Long term (current) use of aspirin; Z79.52 Long term (current) use of systemic steroids; Z79.899 Other long term (current) drug therapy
CPT/HCPCS: 45378; 43239; 88305; 88313; 88342; J2003; J2704

== ENCOUNTER 2024-08-12 15:41 | Outpatient (AMB) | payer OTHER, SELFPAY ==
--- NOTE | 2024-08-12 15:41 | A.OFFPC_ITS ---
Vital Signs 08/12/24 15:45 Height 5 ft 4 in Weight 276 lb 0.4 oz BMI 47.4 BP 132/70 Blood Pressure Location Rt brachial Pulse 87 Pulse Source Pulse Oximeter Temp 97.2 F Temp Source Temporal Artery Scan Pulse Oximetry (%) 97 Intake Visit Reasons: follow up Intake Note: just would like to discuss her weight Allergies No Known Allergies Allergy (Verified 08/12/24 15:58) Medication List - Last Reconciled 08/12/24 by Keesha Sanchez PA-C aspirin 81 mg PO DAILY atorvastatin 20 mg PO DAILY cetirizine (Zyrtec) 10 mg PO DAILY docusate sodium (Colace) 100 mg PO DAILY ergocalciferol (vitamin D2) 1,250 mcg PO QWEEK famotidine 20 mg PO DAILY levothyroxine 75 mcg PO DAILY montelukast 10 mg PO DAILY multivitamin 1 tab PO DAILY prednisone 20 mg PO DAILY triamterene-hydrochlorothiazid 75-50 mg 1 tab PO DAILY Tobacco use date assessed: 05/05/24 Dental Screening Dental Screen Date: 05/05/24 HPI follow up HPI Details The patient is a 59-year-old female presenting with concerns regarding weight management and follow-up for suspected sarcoidosis. She has a history of obesity, with a current BMI of 47 and recent difficulties in maintaining weight loss. Attempts at portion control and exercise were undertaken, and an appetite- suppressing medication was tried but discontinued due to its cost and inefficacy. Additionally, the patient acknowledges eating due to boredom rather than hunger and is interested in weight management assistance, potentially through medication. The patient also has a history of prediabetes, hyperlipidemia managed with atorvastatin, and hypertension. Osteoarthritis is present, specifically impacting the knees. The patient had swelling and nodular findings on a CT scan, suggestive of sarcoidosis, although follow-up imaging post-prednisone indicated resolution. The patient is keen to verify the diagnosis and requested an earlier rheumatology evaluation, initially scheduled for January, to discuss potential treatment and lifestyle implications. 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 - Exercise: Limited adherence to exercis e routines. - Weight Management: Previously lost 60 pounds with [employer], struggles with boredom eating and maintaining weight loss. - Current Nutritional Intake: Difficulty with portion control and managing appetite. [facility] Medical History Hypertriglyceridemia Hypercholesteremia Hyperlipidemia LDL goal <100 Prediabetes Morbid obesity with BMI of 45.0-49.9, adult Sciatica Degenerative joint disease GERD (gastroesophageal reflux disease) Elevated blood sugar Hyperlipidemia IgG4 related disease Sarcoidosis Essential hypertension Allergic rhinitis Acquired hypothyroidism Surgical History History of colonoscopy (~02/28/19) Social History Housing: House Alcohol intake: never Patient Tobacco Use Status: Never used Tobacco e-Cigarette/Vaping Use: Never Used Second Hand Smoke Exposure: No service: No Current occupational status: employed 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 1. Little interest or pleasure in doing things: not at all 2. Feeling down, depressed, or hopeless: not at all 3. Trouble falling or staying asleep, or sleeping too much: not at all 4. Feeling tired or having little energy: not at all 5. Poor appetite or overeating: not at all 6. Feeling bad about yourself - or that you are a failure or have let yourself or your family down: not at all 7. Trouble concentrating on things, such as reading the newspaper or watching t elevision: not at all 8. Moving or speaking so slowly that other people could have noticed. Or the opposite - being so fidgety or restless that you have been moving around a lot more than usual: not at all 9. Thoughts that you would be better off or of hurting yourself in some way: not at all Total score: 0 Depression Screening Interpretation: Negative Depression Screening Done: Yes 59613 - PHQ-9 Billing: Yes Source: Developed by Drs. Slade Cartwright, Soraya Maldonado, Luis Miguel Ames and colleagues, with an educational mera from [email or web address]. Thrive Questionnaire Date Thrive assessed: 05/05/24 AUDIT C Alcohol Use Questionnaire (AUDIT-C) 1. How often do you have a drink containing alcohol?: Never Total Score: 0 Score Reviewed/Action Taken: Yes (Reviewed) LUCIEN-7 AMB Questionnaire LUCIEN-7 Date LUCIEN - 7 assessed: 05/05/24 Source: Developed by Drs. Slade Cartwright, Soraya Maldonado, Luis Miguel Ames and colleagues, with an educational mera from [email or web address]. Review of Systems Const Details: - General: Reports boredom eating. - Endocrine: Reports history of prediabetes. - Cardiovascular: Reports hypertension. - Musculoskeletal: Reports knee pain due to osteoarthritis. - Respiratory: Previously reported findings suggesting sarcoidosis, now resolved with prednisone treatment. Physical exam (Primary Care) Vital Signs: Last Vital Signs Temp 97.2 F 08/12/24 15:45 Pulse 87 08/12/24 15:45 BP 132/70 08/12/24 15:45 Pulse Ox 97 08/12/24 15:45 Care Plan Goal for BP management: <130/90 at Goal BMI result Body Mass Index 47.4 BMI Assessment/Plan discussion: High BMI High, discussed plan: lifestyle, weight reduction, dietary, physical activity and alcohol moderation Tobacco/Smoking Status: Tobacco use Status Tobacco use date assessed 05/05/24 08/12/24 15:53 Patient Tobacco Use Status Never used Tobacco 08/12/24 15:53 e-Cigarette/Vaping Use Never Used 08/12/24 15:53 PHQ-9: PHQ-9 Score PHQ-9: Total score 0 08/12/24 16:28 Depression Screening Interpretation: Negative Thrive Assessment: Date of Thrive Assessment Date Thrive assessed 05/05/24 08/12/24 15:53 Const Other: Appearance: Alert. Oriented X3. No acute distress. Head: Normal external exam. Normocephalic. Atraumatic. Eyes: Pupils are equal, round, and reactive to light. Extraocular movements intact. Conjunctiva and sclera normal. Eyelids normal. Throat: Pharynx normal. Uvula midline. Moist mucous membranes. Neck: Normal inspection. Neck supple. Full range of motion. Cardiovascular: Normal heart rate and rhythm. Respiratory: No respiratory distress. Painless inspiration. Back: Full range of motion noted. Skin: Skin warm and dry. Normal skin color. Normal skin turgor. No rashes/lesions/lacerations noted. Extremities: Extremities exhibit normal range of motion. Results Reviewed Results Reviewed: - Labs: History of high cholesterol and triglycerides. - Tests: Previous CT showing neck swelling and pulmonary nodules, resolved after prednisone use. Coding Level of Care Code Est Pt Level 4 (31835) Complex EM visit Add On G2211 Diagnoses Morbid obesity with BMI of 45.0-49.9, adult E66.01; Z68.42 Acute pain of right knee M25.561 Chronicity: acute Laterality: right Essential hypertension I10 Prediabetes R73.03 Sarcoidosis D86.9 Hyperlipidemia LDL goal <100 E78.5 Hypercholesteremia E78.00 Hypertriglyceridemia E78.1 Additional Codes PHQ-9 - 66913 - PHQ-9 Billing: Yes ([id number]) Assessment & Plan Assessment & Plan (1) Morbid obesity with BMI of 45.0-49.9, adult: Code(s): E66.01 - Morbid (severe) obesity due to excess calories; Z68.42 - Body mass index [BMI] 45.0-49.9, adult Category: Medical Plan: The patient will be referred to a weight management program, with a focus on the potential for injectable weight loss medication, contingent on insurance rashi roval for coverage. Condition is chronic and stable will continue to monitor. (2) Knee pain: Code(s): M25.569 - Pain in unspecified knee Category: Medical Qualifiers: Chronicity: acute Laterality: right Qualified Code(s): M25.561 - Pain in right knee Plan: Pain management will be pursued through conservative measures including physical therapy and analgesics. Condition is chronic and stable continue to monitor. (3) Essential hypertension: Code(s): I10 - Essential (primary) hypertension Category: Medical Plan: Blood pressure will be monitored, and changes in medication made as necessary based on home BP readings. Condition is chronic and stable will continue to monitor. (4) Prediabetes: Code(s): R73.03 - Prediabetes Category: Medical Plan: Monitoring of blood glucose levels will continue, alongside dietary advice aimed at mitigating progression to diabetes. Condition is chronic and stable continue to monitor. (5) Sarcoidosis: Code(s): D86.9 - Sarcoidosis, unspecified Category: Medical Plan: Further evaluation by rheumatology is planned to confirm sarcoidosis, given the prior resolution of symptoms with prednisone. (6) Hyperlipidemia LDL goal <100: Code(s): E78.5 - Hyperlipidemia, unspecified Category: Medical Plan: The patient will continue atorvastatin therapy, with regular lipid panel assessments and dietary counseling to aid in cholesterol management. Condition is chronic and stable continue to monitor. (7) Hypercholesteremia: Code(s): E78.00 - Pure hypercholesterolemia, unspecified Category: Medical Plan: The patient will continue atorvastatin therapy, with regular lipid panel assessments and dietary counseling to aid in cholesterol management. Condition is chronic and stable continue to monitor. (8) Hypertriglyceridemia: Code(s): E78.1 - Pure hyperglyceridemia Category: Medical Plan: The patient will continue atorvastatin therapy, with regular lipid panel assessments and dietary counseling to aid in cholesterol management. Condition is chronic and stable continue to monitor. Plan Plan Patient was informed and verbally consented to the use of an ambient scribe for clinic note documentation during this visit. 1. Obesity The patient will be referred to a weight management program, with a focus on the potential for injectable weight loss medication, contingent on insurance approval for coverage. 2. Prediabetes Monitoring of blood glucose levels will continue, alongside dietary advice aimed at mitigating progression to diabetes. 3. Hyperlipidemia The patient will continue atorvastatin therapy, with regular lipid panel assessments and dietary counseling to aid in cholesterol management. 4. Hypertension Blood pressure will be monitored, and changes in medication made as necessary based on home BP readings. 5. Osteoarthritis Of Knee Pain management will be pursued through conservative measures including physical therapy and analgesics. 6. Suspected Sarcoidosis Further evaluation by rheumatology is planned to confirm sarcoidosis, given the prior resolution of symptoms with prednisone. I discussed the patient's difficulties with weight management and possible avenues such as referral to a weight management clinic for medication assistance. The implications of obesity with a BMI of 47 on overall health were reviewed, including the challenges of insurance coverage for weight loss medications. I advised ongoing monitoring and education for prediabetes and hyperlipidemia management and discussed lifestyle modifications and medication adherence. Regarding suspected sarcoidosis, I addressed the patient's concern about the delayed rheumatology appointments and confirmed efforts to expedite evaluation. Prednisone's prior effectiveness was highlighted as suggesting an autoimmune process and discussed the importance of confirming sarcoidosis to inform ongoing management. Medications: New tirzepatide (weight loss) (Zepbound) for 4 weeks 2.5 mg (0.5 mL) subcut QWEEK 2 mL 0RF E66.01 - Morbid (severe) obesity due to excess calories, E78.00 - Pure hypercholesterolemia, unspecified, E78.1 - Pure hyperglyceridemia, E78.5 - Hyperlipidemia, unspecified, I10 - Essential (primary) hypertension, M25.561 - Pain in right knee, R73.03 - Prediabetes, Z68.42 - Body mass index [BMI] 45.0-49.9, adult Patient Instructions: - Follow up with the weight management program for medications. - Monitor blood glucose levels regularly. - Continue taking atorvastatin as directed. - Monitor blood pressure at home and record readings. - Engage in joint-friendly exercises and consider physiotherapy for knee pain. - Await feedback regarding an earlier rheumatology appointment. - Notify us if experiencing new or worsening symptoms.
[2024-08-12 15:45] VITALS: BP 132/70; PULSE 87; TEMP 36.2; O2SAT 97; BMI 47.4
--- OUTSIDE RECORDS SUMMARY | 2024-08-12 16:45 | XMS_ITS | Clinical Summary ---
[facility] [address] [place] [address] Care Team Providers Care Director Workforce Management Name Role Phone Unavailable Primary Care Provider [...]
== END 2024-08-12 16:24 | disposition home or self-care (01) ==
LOC: HO.HMCSH 15:41
PROVIDERS: PCP Internal Medicine; Visit Provider Physician Assistant Medical
DX: E66.01 Morbid (severe) obesity due to excess calories (principal); Z68.42 Body mass index [BMI] 45.0-49.9, adult; M25.561 Pain in right knee; I10 Essential (primary) hypertension; R73.03 Prediabetes; D86.9 Sarcoidosis, unspecified; E78.5 Hyperlipidemia, unspecified; E78.00 Pure hypercholesterolemia, unspecified; E78.1 Pure hyperglyceridemia

== ENCOUNTER → 2024-08-12 15:41 | Outpatient (BNVA) | payer OTHER, SELFPAY | PROVIDERS: PCP Internal Medicine; Visit Provider Physician Assistant Medical | DX: E66.01 Morbid (severe) obesity due to excess calories (principal); Z68.42 Body mass index [BMI] 45.0-49.9, adult; M25.561 Pain in right knee; I10 Essential (primary) hypertension; R73.03 Prediabetes; D86.9 Sarcoidosis, unspecified; E78.00 Pure hypercholesterolemia, unspecified; E78.1 Pure hyperglyceridemia; Z79.899 Other long term (current) drug therapy | CPT/HCPCS: 96127 ==

== ENCOUNTER 2024-09-12 09:17 | Outpatient (AMB) | payer OTHER, SELFPAY ==
--- NOTE | 2024-09-12 09:22 | A.OFFVIS_ITS ---
Vital Signs 09/12/24 09:23 Height 5 ft 4 in Weight 276 lb BMI 47.4 Intake Visit Reasons: OV-Rt knee pain last inj 05/19/24 Intake Note: Gia is a 59 year old female who presents for a follow up of right knee pain, last injection 05/19/24. At patient last visit she was referred to physical therapy. Patient reports last injection provided her with relief. States physical therapy was completed for both of her knees and had helped. She complains of now having left knee pain that is similar to her right knee. She is requesting bilateral knee injections, if possible. Allergies No Known Allergies Allergy (Verified 09/12/24 09:23) Medication List - Last Reconciled 09/12/24 by Isaac Rodriguez PA-C aspirin 81 mg PO DAILY atorvastatin 20 mg PO DAILY cetirizine (Zyrtec) 10 mg PO DAILY docusate sodium (Colace) 100 mg PO DAILY ergocalciferol (vitamin D2) 1,250 mcg PO QWEEK 90 days famotidine 20 mg PO DAILY levothyroxine 75 mcg PO DAILY montelukast 10 mg PO DAILY multivitamin 1 tab PO DAILY prednisone 20 mg PO DAILY tirzepatide (weight loss) (Zepbound) 2.5 mg (0.5 mL) subcut QWEEK triamterene-hydrochlorothiazid 75-50 mg 1 tab PO DAILY HPI HPI OV-Rt knee pain last inj 05/19/24: Details: 59-year-old female returns to the office today for bilateral knee pain. She previously saw me in May of this year for her right knee and had an injection which she states was significantly helpful. She is experiencing mild discomfort in the right knee but also worsening pain in the left knee with daily activities. [facility], [facility] Medical History Hypertriglyceridemia Hypercholesteremia Hyperlipidemia LDL goal <100 Prediabetes Morbid obesity with BMI of 45.0-49.9, adult Sciatica Degenerative joint disease GERD (gastroesophageal reflux disease) Elevated blood sugar Hyperlipidemia IgG4 related disease Sarcoidosis Essential hypertension Allergic rhinitis Acquired hypothyroidism Surgical History History of colonoscopy (~02/28/19) Social History Housing: House Alcohol intake: never Patient Tobacco Use Status: Never used Tobacco e-Cigarette/Vaping Use: Never Used Second Hand Smoke Exposure: No service: No Current occupational status: employed 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 Tenderness along the medial joint line and lateral retropatellar pain. ROM full with crepitus. Negative steinmans. No ligamentous laxity. NVI. Office Procedures AMB Joint Injection/Aspiration Joint Injection/Aspiration Primary Site: right knee Secondary Site: left knee Prep: site was prepped using aseptic technique, ethochloride spray was applied and injection warnings given Injected: 40 mg of, DepoMedrol, with 8 mL of, 1% plain lidocaine and in the joint Approach Used: anterolateral Procedure: The patient tolerated the procedure well and there was some relief with the local anesthesia Coding 95307 - Glenohumeral/Tronchanteric Bursa/Intraarticular Procedure code (CPT) selection complete Assessment & Plan Assessment & Plan (1) Osteoarthritis of knees, bilateral: Code(s): M17.0 - Bilateral primary osteoarthritis of knee Category: Medical Plan: We discussed options today which include repeat injection of the right knee and also an injection of the left knee. She would like to proceed with bilateral knee injections. The patient did tolerate the procedure well. She is prediabetic so she will monitor her sugars. She does understand this can elevate her A1c. She will continue to modify activities as tolerated. She can return to see me back every 3-6 months as needed for injections. Coding Level of Care Code Est Pt Level 3 (03899) Complex EM visit Add On G2211 Diagnoses Osteoarthritis of knees, bilateral M17.0 CPT Codes Coding - Joint 7: 89708 - Glenohumeral/Tronchanteric Bursa/Intraarticular ([id number])
[2024-09-12 09:23] VITALS: BMI 47.4
--- OUTSIDE RECORDS SUMMARY | 2024-09-12 09:52 | XMS_ITS | Clinical Summary ---
[facility] Address [address] [place] [address] Care Team Providers Care Can Piler Name Role Phone Unavailable Primary Care Provider [...]
== END 2024-09-12 10:51 | disposition home or self-care (01) ==
LOC: HO.HOS 09:18
PROVIDERS: PCP Internal Medicine; Visit Provider Physician Assistant
DX: M17.0 Bilateral primary osteoarthritis of knee (principal)
CPT/HCPCS: 20610; 99213

== ENCOUNTER → 2024-09-12 09:17 | Outpatient (BNVA) | payer OTHER, SELFPAY | PROVIDERS: PCP Internal Medicine; Visit Provider Physician Assistant | DX: M17.0 Bilateral primary osteoarthritis of knee (principal); M25.561 Pain in right knee | CPT/HCPCS: 20610; J1010; J2003 ==

== ENCOUNTER 2024-10-17 09:05 | Outpatient (AMB) | payer OTHER, SELFPAY ==
[2024-10-17 09:04] VITALS: BP 134/81; PULSE 92; RESP 16; TEMP 36; O2SAT 95; BMI 47.8
--- NOTE | 2024-10-17 09:04 | MHC.PC.OV ---
Vital Signs 10/17/24 09:04 Height 5 ft 4 in Weight 278 lb 4 oz BMI 47.8 BP 134/81 Blood Pressure Location Lt brachial Position Sitting Respiration 16 Pulse 92 Pulse Source Pulse Oximeter Temp 96.8 F Temp Source Temporal Artery Scan Pulse Oximetry (%) 95 Oxygen Delivery Method Room Air Intake Visit Reasons: 2 month f/u Intake Note: just would like to discuss her weight Customer Account Coordinator Required: No Accompanied by: Self / Same As Patient Allergies No Known Allergies Allergy (Verified 10/17/24 11:03) Medication List - Last Reconciled 10/17/24 by Keesha Sanchez PA-C alcohol swabs (Alcohol Pads) 1 pad topical TIDWMEAL aspirin 81 mg PO DAILY atorvastatin 20 mg PO DAILY betamethasone dipropionate 0.05% 1 appl topical BID PRN blood sugar diagnostic (FreeStyle Lite Strips) check glucose TID with meals blood-glucose meter (FreeStyle Lite Meter kit) check glucose TID with meals cetirizine (Zyrtec) 10 mg PO DAILY docusate sodium (Colace) 100 mg PO DAILY ergocalciferol (vitamin D2) 1,250 mcg PO QWEEK 90 days famotidine 20 mg PO DAILY lancets (FreeStyle Lancets) check glucose TID with meals lancing device check glucose TID with meals levothyroxine 75 mcg PO DAILY lisinopril 5 mg PO DAILY metformin ER (Glucophage XR) 500 mg PO DAILY montelukast 10 mg PO DAILY multivitamin 1 tab PO DAILY semaglutide (Ozempic) 0.25 mg (0.368 mL) subcut QWEEK triamterene-hydrochlorothiazid 75-50 mg 1 tab PO DAILY Tobacco use date assessed: 08/12/24 Dental Screening Dental Screen Date: 08/12/24 Did you have a dental visit in the last 12 months?: Yes Did you have a dental problem in the last 6 months where you did not have access to dental care?: No Was dental information given to patient?: Patient has dentist HPI 2 month f/u HPI Details The patient is a 59-year-old female presenting for follow-up on weight management and evaluation of hypertension and diabetes. The patient has been experiencing elevated blood pressure readings, with recent measurements showing 145/82 mmHg and 144/82 mmHg. She has not had a history of hypertension until recently, and her heart rate was noted to be 92 bpm. The patient attributes some of the blood pressure elevation to dietary habits, particularly increased salt intake during the summer months. The patient has a history of prediabetes, with a previous A1c of 6.1% noted in February. Recent discussions revealed a diagnosis of Type 2 Diabetes Mellitus, with an A1c of 7.5% today in the office. The patient has a family history of diabetes on both maternal and paternal sides, which may contribute to her condition. The patient reports a rash that began approximately three and a half weeks ago, coinciding with mosquito bites received during a camping trip. The rash is itchy and has spread to various parts of her body. She has been using an anti-itch spray and alcohol to manage the symptoms. Social History - Family Status: , aged 80 with recent health issues. - Exercise: uses the gym, patient did not mention personal exercise routine. - Diet: Increased salt intake during summer, enjoys carbohydrates. [facility] Medical History (Updated 10/17/24 @ 11:12 by Keesha Sanchez PA-C) Other fatigue Encounter for screening for osteoporosis Encounter for screening for other suspected endocrine disorder Contact dermatitis Type 2 diabetes mellitus with hemoglobin A1c goal of less than 7.0% Hypertriglyceridemia Hypercholesteremia Hyperlipidemia LDL goal <100 Prediabetes Morbid obesity with BMI of 45.0-49.9, adult Sciatica Degenerative joint disease GERD (gastroesophageal reflux disease) Elevated blood sugar Hyperlipidemia IgG4 related disease Sarcoidosis Essential hypertension Allergic rhinitis Acquired hypothyroidism Surgical History Hx of eye surgery Hx of bladder endoscopy History of colonoscopy (~02/28/19) Family History Mother Diabetes Hypertension Father No problems noted. Social History Housing: House Alcohol intake: current Alcohol intake frequency: holidays/special occasions only Patient Tobacco Use Status: Never used Tobacco e-Cigarette/Vaping Use: Never Used Second Hand Smoke Exposure: No service: No Current occupational status: employed Cognitive needs: No Hearing needs: No Vision needs: Yes (Glasses) Questionnaire PHQ-9 Over the last 2 weeks, how often have you been bothered by any of the following problems? 1. Little interest or pleasure in doing things: not at all 2. Feeling down, depressed, or hopeless: not at all 3. Trouble falling or staying asleep, or sleeping too much: not at all 4. Feeling tired or having little energy: not at all 5. Poor appetite or overeating: not at all 6. Feeling bad about yourself - or that you are a failure or have let yourself or your family down: not at all 7. Trouble concentrating on things, such as reading the newspaper or watching television: not at all 8. Moving or speaking so slowly that other people could have noticed. Or the opposite - being so fidgety or restless that you have been moving around a lot more than usual: not at all 9. Thoughts that you would be better off or of hurting yourself in some way: not at all Total score: 0 Depression Screening Interpretation: Negative Depression Screening Done: Yes 53412 - PHQ-9 Billing: Yes Source: Developed by Drs. Slade Cartwright, Soraya Maldonado, Luis Miguel Ames and colleagues, with an educational mera from [employer]. Thrive Questionnaire Date Thrive assessed: 08/12/24 I am a: Patient What is your living situation today?: I have a steady place to live Within the past 12 months, did the food you bought not last and you didn't have the money to get more?: Never true Within the past 12 months, did you worry whether your food would run out before you got money to buy more?: Never true Do you have trouble paying for medicines?: No Do you have trouble getting transportation to medical appointments?: No Do you have trouble paying your heating and electricity bill?: No Do you have trouble taking care of your child, family member or friend?: No Do you have trouble with day-to-day activities such as bathing, preparing meals, shopping, managing finances, etc.?: No Are you currently unemployed and looking for a job?: No Are you interested in more education?: No Please select the resources that you would like help with: None Currently or been in a relationship where the following occur: No concerns reported THRIVE Score: 0 AUDIT C Alcohol Use Questionnaire (AUDIT-C) 1. How often do you have a drink containing alcohol?: Never 3. How often do you have six or more drinks on one occasion?: Never Total Score: 0 Score Reviewed/Action Taken: Yes (Reviewed) LUCIEN-7 AMB Questionnaire LUCIEN-7 Date LUCIEN - 7 assessed: 08/12/24 Feeling nervous, anxious, or on edge: 0 = Not at all Not being able to stop or control worryin = Not at all Worrying too much about different things: 0 = Not at all Trouble relaxin = Not at all Being so restless that it is hard to sit still: 0 = Not at all Becoming easily annoyed or irritable: 0 = Not at all Feeling afraid as if something awful might happen: 0 = Not at all Total LUCIEN-7 score (0-4 normal; 5-9 mild; 10-14 moderate; 15-21 severe): 0 Source: Developed by Drs. Slade Cartwright, Soraya Maldonado, Luis Miguel Ames and colleagues, with an educational mera from [employer]. Review of Systems Const Details: - Cardiovascular: Reports elevated blood pressure readings. Denies chest pain. - Endocrine: Reports history of prediabetes, now diagnosed with Type 2 Diabetes Mellitus. - Dermatological: Reports itchy rash following mosquito bites. Physical exam (Primary Care) Vital Signs: Last Vital Signs Temp 96.8 F 10/17/24 09:04 Pulse 92 10/17/24 09:04 Resp 16 10/17/24 09:04 BP 134/81 10/17/24 09:04 Pulse Ox 95 10/17/24 09:04 Oxygen Delivery Method Room Air 10/17/24 09:04 Care Plan Goal for BP management: <140/90 patient will be started on lisinopril 5 mg and return in 1 month with blood pressure diary BMI result Body Mass Index 47.8 BMI Assessment/Plan discussion: High (Patient became a diabetic will be started on metformin and will attempt to send semaglutide for diabetes management for goal of the A1c level of 7.0.) BMI High, discussed plan: lifestyle, weight reduction, dietary, physical activity and alcohol moderation Tobacco/Smoking Status: Tobacco use Status Tobacco use date assessed 08/12/24 10/17/24 09:10 Patient Tobacco Use Status Never used Tobacco 10/17/24 09:04 e-Cigarette/Vaping Use Never Used 10/17/24 09:04 PHQ-9: PHQ-9 Score PHQ-9: Total score 0 10/17/24 09:59 Depression Screening Interpretation: Negative Thrive Assessment: Date of Thrive Assessment Date Thrive assessed 08/12/24 10/17/24 09:10 Currently or been in a relationship where the following occur: No concerns reported Const Other: Appearance: Alert. Oriented X3. No acute distress. Head: Normal external exam. Normocephalic. Atraumatic. Eyes: Pupils are equal, round, and reactive to light. Extraocular movements intact. Conjunctiva and sclera normal. Eyelids normal. Throat: Pharynx normal. Uvula midline. Moist mucous membranes. Neck: Normal inspection. Neck supple. Full range of motion. Cardiovascular: Normal heart rate and rhythm. Respiratory: No respiratory distress. Painless inspiration. Back: Full range of motion noted. Skin: Skin warm and dry. Normal skin color. Normal skin turgor. Patient reports itchy rash, possibly heat rash, treated with anti-itch spray and alcohol. Appears to be a contact dermatitis. No signs of infection. No additional rashes, lesions or lacerations noted to the rest of the body. Extremities: Extremities exhibit normal range of motion. Results AMB Hemoglobin A1c AMB Hemoglobin A1c 7.5 % Last Edit by SMA Lizzy on 10/17/24 09:58 Results Reviewed Results Reviewed: Laboratory Last Values Hgb A1c (Clinic) 7.5 % (4.0-6.0) H 10/17/24 09:38 - Labs: A1c 7.5%, indicating Type 2 Diabetes Mellitus. - Labs: Previous A1c 6.1%, indicating prediabetes. Coding Level of Care Code Est Pt Level 4 (00394) Complex EM visit Add On G2211 Diagnoses Essential hypertension I10 Type 2 diabetes mellitus with hemoglobin A1c goal of less than 7.0% E11.9 Contact dermatitis L25.9 Encounter for screening for other suspected endocrine disorder Z13.29 Encounter for screening for osteoporosis Z13.820 Other fatigue R53.83 Additional Codes PHQ-9 - 58138 - PHQ-9 Billing: Yes ([id number]) Time Spent (min) 45 Assessment & Plan Assessment & Plan (1) Essential hypertension: Code(s): I10 - Essential (primary) hypertension Category: Medical Plan: The patient will be started on a low dose of lisinopril 5 mg to manage her hypertension, with a follow-up to monitor blood pressure response. She is advised to monitor her blood pressure at home and report any significant changes. (2) Type 2 diabetes mellitus with hemoglobin A1c goal of less than 7.0%: Code(s): E11.9 - Type 2 diabetes mellitus without complications Category: Medical Plan: The patient will be started on metformin 500 mg daily to manage her Type 2 Diabetes Mellitus. Additionally, Ozempic (semaglutide) will be prescribed to further assist in glycemic control, pending insurance approval. The patient is instructed to monitor her blood glucose levels regularly and report any adverse effects from medications. (3) Contact dermatitis: Code(s): L25.9 - Unspecified contact dermatitis, unspecified cause Category: Medical Plan: The patient will be prescribed a topical steroid, betamethasone, to manage the rash symptoms. She is advised to continue using the anti-itch spray and monitor for any changes in the rash. (4) Encounter for screening for other suspected endocrine disorder: Code(s): Z13.29 - Encounter for screening for other suspected endocrine disorder Category: Medical Plan: Will order TSH level to assess suspected endocrine disorder. (5) Encounter for screening for osteoporosis: Code(s): Z13.820 - Encounter for screening for osteoporosis Category: Medical Plan: Will order a vitamin D level to assess for osteoporosis. (6) Other fatigue: Code(s): R53.83 - Other fatigue Category: Medical Plan: Will order a vitamin B12 and a folate level to assess for fatigue. Plan Plan Patient was informed and verbally consented to the use of an ambient scribe for clinic note documentation during this visit. 1. Hypertension The patient will be started on a low dose of lisinopril 5 mg to manage her hypertension, with a follow-up to monitor blood pressure response. She is advised to monitor her blood pressure at home and report any significant changes. 2. Type 2 Diabetes Mellitus The patient will be started on metformin 500 mg daily to manage her Type 2 Diabetes Mellitus. Additionally, Ozempic (semaglutide) will be prescribed to further assist in glycemic control, pending insurance approval. The patient is instructed to monitor her blood glucose levels regularly and report any adverse effects from medications. 3. Rash The patient will be prescribed a topical steroid, betamethasone, to manage the rash symptoms. She is advised to continue using the anti-itch spray and monitor for any changes in the rash. During the visit, we discussed the management of hypertension with the initiation of lisinopril 5 mg and the importance of monitoring blood pressure at home. For Type 2 Diabetes Mellitus, we decided to start metformin 500 mg daily and consider Ozempic pending insurance approval. The patient was informed about the need to regularly check blood glucose levels and report any adverse effects. For the rash, a topical steroid, betamethasone, was prescribed, and the patient was advised to continue using the anti-itch spray. Orders: Orders TSH reflex Free T4 Today Z00.00 - Encounter for general adult medical examination without abnormal findings Vitamin D 25-OH Total Today Z00.00 - Encounter for general adult medical examination without abnormal findings Vitamin B12 and Folate Today Z00.00 - Encounter for general adult medical examination without abnormal findings AMB Hemoglobin A1c Today R73.03 - Prediabetes Medications: New blood-glucose meter (FreeStyle Lite Meter kit) check glucose TID with meals 1 ea 1RF E11.9 - Type 2 diabetes mellitus without complications alcohol swabs (Alcohol Pads) 1 pad topical TIDWMEAL 100 ea 1RF E11.9 - Type 2 diabetes mellitus without complications lisinopril 5 mg PO DAILY 30 tabs 0RF betamethasone dipropionate 0.05% 1 appl topical BID PRN 45 grams 1RF skin irritation metformin ER (Glucophage XR) 500 mg PO DAILY 30 tabs 0RF E11.9 - Type 2 diabetes mellitus without complications semaglutide (Ozempic) for 4 weeks 0.25 mg (0.368 mL) subcut QWEEK 3 mL 0RF E11.9 - Type 2 diabetes mellitus without complications blood sugar diagnostic (FreeStyle Lite Strips) check glucose TID with meals 100 ea 0RF E11.9 - Type 2 diabetes mellitus without complications lancets (FreeStyle Lancets) check glucose TID with meals 100 ea 0RF E11.9 - Type 2 diabetes mellitus without complications lancing device check glucose TID with meals 1 ea 0RF E11.9 - Type 2 diabetes mellitus without complications Patient Instructions: - Take lisinopril 5 mg daily to manage blood pressure. - Monitor blood pressure at home and report any significant changes. - Take metformin 500 mg daily for diabetes management. - Monitor blood glucose levels regularly and report any adverse effects. - Apply betamethasone cream to the rash as directed. - Continue using the anti-itch spray and monitor for changes in the rash.
--- OUTSIDE RECORDS SUMMARY | 2024-10-17 09:18 | XMS_ITS | Clinical Summary ---
[facility] [address] [place] [address] Care Team Providers Care Tier In Name Role Phone Unavailable Primary Care Provider [...] 2023-2 5 season) 2023 Influenza Vaccine (#1) 2024 HIB Vaccines Aged Out No longer [...] 5 Years) and At-Risk Patients (6 to 49 Years) Aged Out No longer eligible b ased on patient's age to complete this topic RSV Immunization Patients Un izaiah 20 months Aged Out No longer eligible b ased on patient's age to complete this topic Varicella Vaccines Aged Out No longer eligible based on patient's age to complete this topic
== END 2024-10-17 10:00 | disposition home or self-care (01) ==
LOC: HO.HMCSH 09:05
PROVIDERS: PCP Internal Medicine; Visit Provider Physician Assistant Medical
DX: I10 Essential (primary) hypertension (principal); E11.9 Type 2 diabetes mellitus without complications; L25.9 Unspecified contact dermatitis, unspecified cause; Z13.29 Encounter for screening for other suspected endocrine disorder; Z13.820 Encounter for screening for osteoporosis; R53.83 Other fatigue; R73.03 Prediabetes

== ENCOUNTER → 2024-10-17 09:05 | Outpatient (BNVA) | payer OTHER, SELFPAY | PROVIDERS: PCP Internal Medicine; Visit Provider Physician Assistant Medical | DX: I10 Essential (primary) hypertension (principal); E11.9 Type 2 diabetes mellitus without complications; L25.9 Unspecified contact dermatitis, unspecified cause; R53.83 Other fatigue | CPT/HCPCS: 83036; 96127 ==

== ENCOUNTER 2024-11-13 11:45 | Outpatient (AMB) | payer OTHER, SELFPAY ==
[2024-11-13 11:47] VITALS: BP 114/57; PULSE 90; RESP 16; TEMP 36.4; O2SAT 95; BMI 47.0
--- NOTE | 2024-11-13 11:47 | MHC.PC.OV ---
Vital Signs 11/13/24 11:47 Height 5 ft 4 in Weight 274 lb BMI 47.0 BP 114/57 L Respiration 16 Pulse 90 Pulse Source Pulse Oximeter Temp 97.6 F Temp Source Temporal Artery Scan Pulse Oximetry (%) 95 Oxygen Delivery Method Room Air Intake Visit Reasons: 1 month f/u Bad Credit Collector Required: No Accompanied by: Self / Same As Patient Allergies No Known Allergies Allergy (Verified 11/13/24 13:14) Medication List - Last Reconciled 11/13/24 by Keesha Sanchez PA-C alcohol swabs (Alcohol Pads) 1 pad topical TIDWMEAL aspirin 81 mg PO DAILY atorvastatin 20 mg PO DAILY betamethasone dipropionate 0.05% 1 appl topical BID PRN blood sugar diagnostic (FreeStyle Lite Strips) check glucose TID with meals blood-glucose meter (FreeStyle Lite Meter kit) check glucose TID with meals cetirizine 10 mg PO DAILY docusate sodium (Colace) 100 mg PO DAILY ergocalciferol (vitamin D2) 1,250 mcg PO QWEEK 90 days famotidine 20 mg PO DAILY lancets (FreeStyle Lancets) check glucose TID with meals lancing device check glucose TID with meals levothyroxine 75 mcg PO DAILY lisinopril 5 mg PO DAILY metformin ER (Glucophage XR) 500 mg PO BID 90 days montelukast 10 mg PO DAILY multivitamin 1 tab PO DAILY ondansetron HCl 4 mg PO Q8H PRN semaglutide (Ozempic) 0.5 mg (0.736 mL) subcut QWEEK 4 weeks triamterene-hydrochlorothiazid 75-50 mg 1 tab PO DAILY Tobacco use date assessed: 11/13/24 Dental Screening Dental Screen Date: 08/12/24 HPI 1 month f/u HPI Details The patient is a 59-year-old female presenting for a follow-up visit regarding her diabetes management and medication adjustments. The patient has been managing Type 2 Diabetes Mellitus and is currently on metformin, which she reports did not cause diarrhea, a common side effect she was concerned about. She has experienced nausea and bloating, which she attributes to her current medications, including Ozempic, and has been advised to take Zofran for nausea management. The patient has a history of hypertension, which is currently well-controlled with lisinopril. She monitors her blood pressure regularly and has been advised to avoid taking medication if her blood pressure is below 120/80 mmHg. The patient also has hypothyroidism and requires levothyroxine, which she noted had run out and needed a refill. The patient is managing obesity and has been prescribed Ozempic, with plans to increase the dosage to aid in weight loss. She reports a reduced appetite and has been advised to eat small, frequent meals to manage her symptoms and support weight loss. Social History - Exercise: Patient has been advised to incorporate physical activity to aid weight loss and prevent muscle mass loss. - Nutrition: Patient is consuming smaller portions and healthier snacks, such as celery with ranch dip, to manage weight and blood sugar levels. [facility] Medical History (Updated 11/13/24 @ 13:23 by Keesha Sanchez PA-C) Hypothyroidism Other fatigue Encounter for screening for osteoporosis Encounter for screening for other suspected endocrine disorder Contact dermatitis Type 2 diabetes mellitus with hemoglobin A1c goal of less than 7.0% Hypertriglyceridemia Hypercholesteremia Hyperlipidemia LDL goal <100 Prediabetes Morbid obesity with BMI of 45.0-49.9, adult Sciatica Degenerative joint disease GERD (gastroesophageal reflux disease) Elevated blood sugar Hyperlipidemia IgG4 related disease Sarcoidosis Essential hypertension Allergic rhinitis Acquired hypothyroidism Surgical History Hx of eye surgery Hx of bladder endoscopy History of colonoscopy (~02/28/19) Family History Mother Diabetes Hypertension Father No problems noted. Social History Housing: House Alcohol intake: current Alcohol intake frequency: holidays/special occasions only Patient Tobacco Use Status: Never used Tobacco e-Cigarette/Vaping Use: Never Used Second Hand Smoke Exposure: No service: No Current occupational status: employed Cognitive needs: No Hearing needs: No Vision needs: Yes (Glasses) Questionnaire PHQ-9 Over the last 2 weeks, how often have you been bothered by any of the following problems? 1. Little interest or pleasure in doing things: not at all 2. Feeling down, depressed, or hopeless: not at all 3. Trouble falling or staying asleep, or sleeping too much: not at all 4. Feeling tired or having little energy: not at all 5. Poor appetite or overeating: not at all 6. Feeling bad about yourself - or that you are a failure or have let yourself or your family down: not at all 7. Trouble concentrating on things, such as reading the newspaper or watching television: not at all 8. Moving or speaking so slowly that other people could have noticed. Or the opposite - being so fidgety or restless that you have been moving around a lot more than usual: not at all 9. Thoughts that you would be better off or of hurting yourself in some way: not at all Total score: 0 Depression Screening Interpretation: Negative Depression Screening Done: Yes 14006 - PHQ-9 Billing: Yes Source: Developed by Drs. Slade Cartwright, Soraya Maldonado, Luis Miguel Ames and colleagues, with an educational mera from [employer]. Thrive Questionnaire Date Thrive assessed: 10/17/24 I am a: Patient What is your living situation today?: I have a steady place to live Within the past 12 months, did the food you bought not last and you didn't have the money to get more?: Never true Within the past 12 months, did you worry whether your food would run out before you got money to buy more?: Never true Do you have trouble paying for medicines?: No Do you have trouble getting transportation to medical appointments?: No Do you have trouble paying your heating and electricity bill?: No Do you have trouble taking care of your child, family member or friend?: No Do you have trouble with day-to-day activities such as bathing, preparing meals, shopping, managing finances, etc.?: No Are you currently unemployed and looking for a job?: No Are you interested in more education?: No Please select the resources that you would like help with: None Currently or been in a relationship where the following occur: No concerns reported THRIVE Score: 0 AUDIT C Alcohol Use Questionnaire (AUDIT-C) 1. How often do you have a drink containing alcohol?: Never 3. How often do you have six or more drinks on one occasion?: Never Total Score: 0 Score Reviewed/Action Taken: Yes (Reviewed) LUCIEN-7 AMB Questionnaire LUCIEN-7 Date LUCIEN - 7 assessed: 10/17/24 Feeling nervous, anxious, or on edge: 0 = Not at all Not being able to stop or control worryin = Not at all Worrying too much about different things: 0 = Not at all Trouble relaxin = Not at all Being so restless that it is hard to sit still: 0 = Not at all Becoming easily annoyed or irritable: 0 = Not at all Feeling afraid as if something awful might happen: 0 = Not at all Total LUCIEN-7 score (0-4 normal; 5-9 mild; 10-14 moderate; 15-21 severe): 0 Source: Developed by Drs. Slade Cartwright, Soraya Maldonado, Luis Miguel Ames and colleagues, with an educational mera from [employer]. LUCIEN-7 Assessment Billing LUCIEN-7 Assessment Tool: LUCIEN-7 Assessment 78168 Review of Systems Const Details: - Gastrointestinal: Reports nausea and bloating. Denies diarrhea with metformin use. - Endocrine: Reports reduced appetite since starting Ozempic. - Cardiovascular: Denies dizziness despite low blood pressure readings. All systems reviewed & are unremarkable except as noted in HPI and below Physical exam (Primary Care) Vital Signs: Last Vital Signs Temp 97.6 F 11/13/24 11:47 Pulse 90 11/13/24 11:47 Resp 16 11/13/24 11:47 BP 114/57 L 11/13/24 11:47 Pulse Ox 95 11/13/24 11:47 Oxygen Delivery Method Room Air 11/13/24 11:47 Care Plan Goal for BP management: <140/90 at Goal BMI result Body Mass Index 47.0 BMI Assessment/Plan discussion: High BMI High, discussed plan: lifestyle, weight reduction, dietary, physical activity, alcohol moderation and other Tobacco/Smoking Status: Tobacco use Status Tobacco use date assessed 11/13/24 11/13/24 11:48 Patient Tobacco Use Status Never used Tobacco 11/13/24 11:48 e-Cigarette/Vaping Use Never Used 11/13/24 11:48 PHQ-9: PHQ-9 Score PHQ-9: Total score 0 11/13/24 11:48 Depression Screening Interpretation: Negative Thrive Assessment: Date of Thrive Assessment Date Thrive assessed 10/17/24 11/13/24 11:48 Currently or been in a relationship where the following occur: No concerns reported Const Other: Appearance: Alert. Oriented X3. No acute distress. Head: Normal external exam. Normocephalic. Atraumatic. Eyes: Pupils are equal, round, and reactive to light. Extraocular movements intact. Conjunctiva and sclera normal. Eyelids normal. Throat: Pharynx normal. Uvula midline. Moist mucous membranes. Neck: Normal inspection. Neck supple. Full range of motion. Cardiovascular: Normal heart rate and rhythm. Respiratory: No respiratory distress. Painless inspiration. Back: Full range of motion noted. Skin: Skin warm and dry. Normal skin color. Normal skin turgor. No rashes/lesions/lacerations noted. Extremities: Extremities exhibit normal range of motion. Neuro: Oriented X 3. No motor deficit. No sensory deficit. Reflexes normal. Coding Level of Care Code Est Pt Level 4 (56783) Complex EM visit Add On G2211 Diagnoses Type 2 diabetes mellitus with hemoglobin A1c goal of less than 7.0% E11.9 Essential hypertension I10 Hypothyroidism E03.9 Morbid obesity with BMI of 45.0-49.9, adult E66.01; Z68.42 Additional Codes PHQ-9 - 01537 - PHQ-9 Billing: Yes ([id number]) LUCIEN-7 Assessment Billing - LUCIEN-7 Assessment Tool: LUCIEN-7 Assessment 54784 ([id number]) Assessment & Plan Assessment & Plan (1) Type 2 diabetes mellitus with hemoglobin A1c goal of less than 7.0%: Code(s): E11.9 - Type 2 diabetes mellitus without complications Category: Medical Plan: The patient is currently on metformin and has been prescribed Ozempic to aid in weight loss and improve glycemic control. The dosage of Ozempic is to be increased to 0.5 mg to enhance its effectiveness. The patient is advised to monitor blood glucose levels regularly and adjust dietary intake to manage symptoms and support weight management. (2) Essential hypertension: Code(s): I10 - Essential (primary) hypertension Category: Medical Plan: The patient is currently taking lisinopril for hypertension management, with instructions to monitor blood pressure regularly. She is advised to avoid taking the medication if her blood pressure readings are below 120/80 mmHg to prevent hypotension. (3) Hypothyroidism: Code(s): E03.9 - Hypothyroidism, unspecified Category: Medical Plan: The patient requires levothyroxine for hypothyroidism management and has been provided with a prescription refill. (4) Morbid obesity with BMI of 45.0-49.9, adult: Code(s): E66.01 - Morbid (severe) obesity due to excess calories; Z68.42 - Body mass index [BMI] 45.0-49.9, adult Category: Medical Plan: The patient is managing obesity with the aid of Ozempic, with plans to increase the dosage to 0.5 mg to enhance weight loss. She is advised to incorporate physical activity and consume smaller, healthier meals to support weight management. Plan Plan Patient was informed and verbally consented to the use of an ambient scribe for clinic note documentation during this visit. 1. Type 2 Diabetes Mellitus The patient is currently on metformin and has been prescribed Ozempic to aid in weight loss and improve glycemic control. The dosage of Ozempic is to be increased to 0.5 mg to enhance its effectiveness. The patient is advised to monitor blood glucose levels regularly and adjust dietary intake to manage symptoms and support weight management. 2. Hypertension The patient is currently taking lisinopril for hypertension management, with instructions to monitor blood pressure regularly. She is advised to avoid taking the medication if her blood pressure readings are below 120/80 mmHg to prevent hypotension. 3. Hypothyroidism The patient requires levothyroxine for hypothyroidism management and has been provided with a prescription refill. 4. Obesity The patient is managing obesity with the aid of Ozempic, with plans to increase the dosage to 0.5 mg to enhance weight loss. She is advised to incorporate physical activity and consume smaller, healthier meals to support weight management. During the visit, we discussed the management of the patient's Type 2 Diabetes Mellitus, including the use of metformin and the plan to increase the dosage of Ozempic to 0.5 mg to aid in weight loss and glycemic control. We also reviewed the patient's hypertension management with lisinopril, emphasizing the importance of regular blood pressure monitoring and adjusting medication based on readings. The patient was advised on dietary modifications and the importance of physical activity to support weight management and overall health. Medications: New levothyroxine 75 mcg PO DAILY 90 tabs 3RF ondansetron HCl 4 mg PO Q8H PRN 30 tabs 3RF nausea and vomiting Changed From semaglutide (Ozempic) for 4 weeks 0.25 mg (0.368 mL) subcut QWEEK 3 mL 0RF E11.9 - Type 2 diabetes mellitus without complications To semaglutide (Ozempic) for 4 weeks 0.5 mg (0.736 mL) subcut QWEEK 2.944 mL 0RF 4 weeks E11.9 - Type 2 diabetes mellitus without complications From metformin ER (Glucophage XR) 500 mg PO DAILY 30 tabs 0RF E11.9 - Type 2 diabetes mellitus without complications To metformin ER (Glucophage XR) 500 mg PO BID 180 tabs 3RF 90 days E11.9 - Type 2 diabetes mellitus without complications Refilled lisinopril 5 mg PO DAILY 90 tabs 3RF Patient Instructions: - Take metformin and Ozempic as prescribed, with Ozempic dosage to be increased to 0.5 mg. - Monitor blood glucose and blood pressure regularly, and adjust medication intake based on readings. - Consume small, frequent meals and incorporate physical activity to aid in weight management. - Refill levothyroxine prescription and take as directed.
--- OUTSIDE RECORDS SUMMARY | 2024-11-13 12:19 | XMS_ITS | Clinical Summary ---
Author Organization [facility] ity Address [address] [place] [address] Care Team Providers Care Yoke Setter Name Role Phone Unavailable Primary Care Provider [...] Vaccine ( - 2023-2 5 season) 2023 Depression Screening 04/09/2024 Influenza Vaccine (#1) 2024 HIB Vaccines Aged [...]
== END 2024-11-13 12:08 | disposition home or self-care (01) ==
LOC: HO.HMCSH 11:46
PROVIDERS: PCP Internal Medicine; Visit Provider Physician Assistant Medical
DX: E11.9 Type 2 diabetes mellitus without complications (principal); I10 Essential (primary) hypertension; E03.9 Hypothyroidism, unspecified; E66.01 Morbid (severe) obesity due to excess calories; Z68.42 Body mass index [BMI] 45.0-49.9, adult

== ENCOUNTER → 2024-11-13 11:45 | Outpatient (BNVA) | payer OTHER, SELFPAY | PROVIDERS: PCP Internal Medicine; Visit Provider Physician Assistant Medical | DX: E11.9 Type 2 diabetes mellitus without complications (principal); I10 Essential (primary) hypertension; E03.9 Hypothyroidism, unspecified; E66.01 Morbid (severe) obesity due to excess calories; Z68.42 Body mass index [BMI] 45.0-49.9, adult; Z79.84 Long term (current) use of oral hypoglycemic drugs | CPT/HCPCS: 96127 ==

== ENCOUNTER 2024-11-20 09:47 | Outpatient (AMB) | payer OTHER, SELFPAY ==
[2024-11-20 09:53] VITALS: BP 110/72; PULSE 126; TEMP 37.8; O2SAT 93; BMI 46.3
--- NOTE | 2024-11-20 09:53 | AM.OFFWIN_ITS ---
Intake Vital Signs 11/20/24 09:53 Height 5 ft 4 in Weight 270 lb BMI 46.3 BP 110/72 Blood Pressure Location Lt brachial Position Sitting Pulse 126 H Pulse Source Pulse Oximeter Temp 100.1 F Temp Source Oral Pulse Oximetry (%) 93 Oxygen Delivery Method Room Air Intake Visit Reasons: EP Covid+ on at home test, work note Intake Note: pt is here in need of an OOW note, tested positive for covid at home. c/o headache, sore throat, chest tightness, body aches, fever, sinus congestion, chest congestion. Patient Tobacco Use Status: Never used Tobacco Allergies No Known Allergies Allergy (Verified 11/20/24 09:57) Do you need a note to return to daycare/school/sports/work: Yes HPI HPI Comments History of Present Illness Details 59 y/o Female patient who presents to [facility] walk [facility] clinic with c/o URI symptoms since yesterday. Reports Cough, SOB, Fatigue, generalized body aches, fevers, chills, and poor appetite. She tested positive for COVID-19 infection this morning with Home test Kit. She has been using OTC remedies. [facility] Medical History (Updated 11/20/24 @ 10:25 by Charlotte Mccoy NP) COVID-19 Hypothyroidism Other fatigue Encounter for screening for osteoporosis Encounter for screening for other suspected endocrine disorder Contact dermatitis Type 2 diabetes mellitus with hemoglobin A1c goal of less than 7.0% Hypertriglyceridemia Hypercholesteremia Hyperlipidemia LDL goal <100 Prediabetes Morbid obesity with BMI of 45.0-49.9, adult Sciatica Degenerative joint disease GERD (gastroesophageal reflux disease) Elevated blood sugar Hyperlipidemia IgG4 related disease Sarcoidosis Essential hypertension Allergic rhinitis Acquired hypothyroidism Surgical History Hx of eye surgery Hx of bladder endoscopy History of colonoscopy (~02/28/19) Family History Mother Diabetes Hypertension Father No problems noted. Social History Housing: House Alcohol intake: current Alcohol intake frequency: holidays/special occasions only Patient Tobacco Use Status: Never used Tobacco e-Cigarette/Vaping Use: Never Used Second Hand Smoke Exposure: No service: No Current occupational status: employed Cognitive needs: No Hearing needs: No Vision needs: Yes (Glasses) Review of Systems Const All systems reviewed & are unremarkable except as noted in HPI and below Physical Exam Vital Signs: Last Vital Signs Temp 100.1 F 11/20/24 09:53 Pulse 126 H 11/20/24 09:53 BP 110/72 11/20/24 09:53 Pulse Ox 93 11/20/24 09:53 Oxygen Delivery Method Room Air 11/20/24 09:53 BMI result Body Mass Index 46.3 Const General: no acute distress Nutritional Appearance: obese Orientation/consciousness: patient oriented x3 HEENT Head: Yes normocephalic Ears: external ears normal and TM abnormal with fluid behind the TM bilateral General nose exam: Normal external nose present and Nasal discharge present Face and sinus: Yes sinuses nontender Mouth: moist mucous membranes Throat: Yes uvula midline Resp Effort & Inspection: normal respiratory effort Auscultation: clear to auscultation bilaterally Cardio Heart sounds: S1 normal heart sound present and S2 normal heart sound present Neuro General: patient oriented x3 Assessment & Plan Assessment & Plan (1) COVID-19: Code(s): U07.1 - COVID-19 Plan: Ordered Paxlovid for 5 days. Do not take with Atorvastatin due to drug interaction. Rest and hydrate well with warm fluids Acetaminophen for pain relief. OTC remedies for cold and flu. Medications: New nirmatrelvir-ritonavir 300 mg (150 mg x 2)-100 mg (Paxlovid) take TWO 150 mg tablets of nirmatrelvir with ONE 100 mg tablet of ritonavir twice daily for 5 days PO 30 ea 0RF U07.1 - COVID-19 Coding Level of Care Code Est Pt Level 4 (19449) Diagnoses COVID-19 U07.1 Time Spent (min) 20
--- OUTSIDE RECORDS SUMMARY | 2024-11-20 10:27 | XMS_ITS | Clinical Summary ---
Author Organization [facility] ity Address [address] [place] [address] Care Team Providers Care Dimensional Integration Engineer Name Role Phone Unavailable Primary Care [...]
== END 2024-11-20 10:54 | disposition home or self-care (01) ==
PROVIDERS: PCP Internal Medicine; Visit Provider Nurse Practitioner Family
DX: U07.1 COVID-19 (principal)

== ENCOUNTER 2025-01-29 10:35 | Outpatient (AMB) | payer OTHER, SELFPAY ==
--- NOTE | 2025-01-29 10:51 | MHC.OFFVIS ---
Vital Signs 01/29/25 10:55 Height 5 ft 4 in Weight 247 lb 5.738 oz BMI 42.5 BP 110/82 Blood Pressure Location Lt brachial Position Sitting Pulse 96 Pulse Source Pulse Oximeter Pulse Oximetry (%) 98 Oxygen Delivery Method Room Air Intake Visit Reasons: Sarcoidosis Intake Note: New Patient presents today for sacrodosis. Accompanied by: Self / Same As Patient Allergies No Known Allergies Allergy (Verified 01/29/25 10:55) HPI HPI Sarcoidosis: Details: New patient visit. Patient is accompanied with her . She had initial swelling in acquired in her neck noticed by her dentist earlier in the year. Then she developed swelling of her right eye. She also had bumps on her hard palate. She saw pneumatic jack operator Dr. Bull who was concerned for ocular cancer and referred her to Dr. Braswell who did right lacrimal gland excision biopsy and superolateral orbit excisional biopsy. 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 After biopsy her right eye remain swollen. She had prednisone 40 mg daily started in May 29, 2024 to August 26, 2024. Then she was prescribed a tapered to reduce prednisone to 30 mg daily for 5 days then 20 mg daily internal her ophthalmology follow up. Eventually she was tapered off. PCP did imaging for evaluation of swelling in her neck, which revealed lymphadenopathy. She also had chest x-ray revealing nodules in long. Lymphadenopathy in her neck and nodules resolved on repeat chest x-ray with prednisone course. She also report the bumps on her hard palate also resolved with prednisone course. In the last week she has had reoccurrence of left submandibular nodule and bumps on the hard palate. She has had URI for 2 weeks and has been recovering well. She is experiencing postnasal drip and a cough. Initial symptoms were headache, rhinorrhea, cough, and lethargy. Denies any history of abdominal pain, pancreatitis, abdominal surgery, kidney insufficiency, joint swelling. She is experiencing dry mouth for the last 6 months. She has knee osteoarthritis previously treated with cortisone injections and physical therapy with benefit. She has seen Orthopedic surgery at [facility] in the past. 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 No history of smoking. She has alcohol on rare occasions. Medical history and medication list reviewed with patient. [facility] Medical History COVID-19 Hypothyroidism Other fatigue Encounter for screening for osteoporosis Encounter for screening for other suspected endocrine disorder Contact dermatitis Type 2 diabetes mellitus with hemoglobin A1c goal of less than 7.0% Hypertriglyceridemia Hypercholesteremia Hyperlipidemia LDL goal <100 Prediabetes Morbid obesity with BMI of 45.0-49.9, adult Sciatica Degenerative joint disease GERD (gastroesophageal reflux disease) Elevated blood sugar Hyperlipidemia IgG4 related disease Sarcoidosis Essential hypertension Allergic rhinitis Acquired hypothyroidism Surgical History Hx of eye surgery Hx of bladder endoscopy History of colonoscopy (~02/28/19) Family History Mother Diabetes Hypertension Father No problems noted. Social History Housing: House Alcohol intake: current Alcohol intake frequency: holidays/special occasions only Patient Tobacco Use Status: Never used Tobacco e-Cigarette/Vaping Use: Never Used Second Hand Smoke Exposure: No service: No Current occupational status: employed Cognitive needs: No Hearing needs: No Vision needs: Yes (Glasses) Physical Exam Exam Exam: General: Comfortable CVS: RRR Respiratory: clear to auscultation bilaterally. Good respiratory effort Skin: No lesions seen Oral: Left submandibular gland tenderness with slight enlargement MSK: Tender bilateral shoulders. Normal range of motion of upper extremities. Knee flexion 90 degrees bilateral. No synovitis. Vital Signs: Last Vital Signs Pulse 96 01/29/25 10:55 BP 110/82 01/29/25 10:55 Pulse Ox 98 01/29/25 10:55 Oxygen Delivery Method Room Air 01/29/25 10:55 BMI result Body Mass Index 42.5 Results Reviewed Results Reviewed: Imaging and labs in [facility] reviewed. 06/2024 CT/CT chest w IV con IMPRESSION: 1. Previously seen 4 mm left posterior upper lobe lung nodule has resolved. There are no additional pulmonary nodules identified. The lungs are now clear without evidence of active disease. There are no sequela of sarcoidosis currently. 2. Previously seen mediastinal adenopathy has resolved. There are no current enlarged lymph nodes. 3. Mild fatty infiltration of the liver. 05/07/2024 CT/CT soft tissue neck w IV con IMPRESSION: 1. Lymphadenopathy throughout the neck bilaterally, most significant in the left greater than right jugulodigastric levels. Lymphadenopathy within the superior mediastinum. 2. Marked enlargement of the right greater than left lacrimal glands. There is moderate right and mild left proptosis. There is enlargement of the extraocular muscle bellies in the right orbit. 3. Aside from mild fatty change of the parotid glands, no salivary gland lesions. Recent left neck focused ultrasound was imaging level II lymph nodes. 4. Overall, constellation of findings suggests possible lymphoproliferative disorder, with major differential of inflammatory lymphadenopathy with dacryoadenitis (i.e. Sarcoidosis, Sjogren's syndrome). Involvement of right extraocular muscles highly suggest SARCOIDOSIS. 5. Nonspecific 4 mm left pulmonary upper lobe nodule. Given above findings consider correlation with CT chest. Pathology report 05/28/2024 reviewed of right lacrimal gland and superolateral orbit excision biopsy. Assessment & Plan Assessment & Plan (1) IgG4 related disease: Comment: She has right lacrimal gland involvement confirmed on biopsy 05/2024 with persistent chronic dry mouth. Right ocular swelling, submandibular, cervical and mediastinal lymphadenopathy, bumps on hard palate and pulmonary nodule resolved with prednisone course. In setting of recent URI she has had slight recurrence of left submandibular node enlargement and discomfort. We discussed workup for IgG4 related disease when she has completely recovered from URI (approximately next week). She has not had any reoccurrence of ocular swelling. We discussed diagnosis of IgG4 related disease and the possibility that it can involve multiple organs. In her case we have confirmed involvement of the right lacrimal gland. Lymphadenopathy and salivary gland involvement is likely part of patient's initial manifestation. At this time immunosuppressive therapy is not indicated. We discuss monitoring submandibular/ cervical lymph node enlargement with considering repeating imaging if there is growth after she recovers fully from URI. Patient agrees with plan. Code(s): D89.84 - IgG4-related disease Category: Medical Plan: Labs and urine studies ordered I am requesting clinic notes from Dr. Bull and Dr. Braswell prior to ocular biopsy Return to clinic 1 month to review results Orders: Orders Complete Blood Count Auto Diff Today D89.84 - IgG4-related disease C Reactive Protein Today D89.84 - IgG4-related disease, Z79.899 - Other keno terminal operator (current) drug therapy Erythrocyte Sedimentation Rate Today D89.84 - IgG4-related disease, Z79.899 - Other keno terminal operator (current) drug therapy Alanine Aminotransferase Today D89.84 - IgG4-related disease Hepatitis B,C Profile Today D89.84 - IgG4-related disease Creatinine Today D89.84 - IgG4-related disease Aspartate Amino Transferase Today D89.84 - IgG4-related disease IgE Antibody (Anti-IgE IgG) Today D89.84 - IgG4-related disease Immunoglobulin G Subclasses Today D89.84 - IgG4-related disease Sjogren's Antibodies Today D89.84 - IgG4-related disease T Spot TB Today D89.84 - IgG4-related disease UA w Microscopic Today D89.84 - IgG4-related disease Protein Electrophoresis, Serum Today D89.84 - IgG4-related disease Coding Level of Care Code New Pt Level 4 (48307) Complex EM visit Add On G2211 Diagnoses IgG4 related disease D8.84
[2025-01-29 10:55] VITALS: BP 110/82; PULSE 96; O2SAT 98; BMI 42.5
--- OUTSIDE RECORDS SUMMARY | 2025-01-29 12:46 | XMS_ITS | Clinical Summary ---
[facility] Address [address] [place] [address] Care Team Providers Care Container Washer Name Role Phone Unavailable Primary Care Provider [...] 2017 Zoster Vaccines (1 of 2) 2017 Depression Screening 04/09/2024 COVID-19 Vaccine (1 - 2023-2 5 season) 2024 Influenza Vaccine (#1) 2024 RSV Immunization Adult Patie nts (1 - 1-dose 75+ series) 2042 HIB Vaccines Aged Out No longer eligi [...]
== END 2025-01-29 12:08 | disposition home or self-care (01) ==
LOC: HO.RHES 10:36
PROVIDERS: PCP Internal Medicine; Visit Provider Internal Medicine Rheumatology
DX: D89.84 IgG4-related disease (principal)
CPT/HCPCS: 99204; G2211

== ENCOUNTER 2025-02-11 15:12 | Outpatient (AMB) | payer OTHER, SELFPAY ==
[2025-02-11 15:18] VITALS: BP 108/71; PULSE 100; RESP 16; TEMP 36.4; O2SAT 97; BMI 42.2
--- NOTE | 2025-02-11 15:18 | A.OFFPC_ITS ---
Vital Signs 02/11/25 15:18 Height 5 ft 4 in Weight 246 lb BMI 42.2 BP 108/71 Blood Pressure Location Lt brachial Position Sitting Respiration 16 Pulse 100 Pulse Source Pulse Oximeter Temp 97.6 F Temp Source Temporal Artery Scan Pulse Oximetry (%) 97 Oxygen Delivery Method Room Air Intake Visit Reasons: 2 months [employer] Required: No Accompanied by: Self / Same As Patient Allergies No Known Allergies Allergy (Verified 02/11/25 16:19) Medication List - Last Reconciled 02/11/25 by Keesha Sanchez PA-C alcohol swabs (Alcohol Pads) 1 pad topical TIDWMEAL amoxicillin-pot clavulanate 875-125 mg 1 tab PO BID 10 days aspirin 81 mg PO DAILY atorvastatin 20 mg PO DAILY betamethasone dipropionate 0.05% 1 appl topical BID PRN blood sugar diagnostic (FreeStyle Lite Strips) USE 1 STRIP DIRECTED TO CHECK BLOOD GLUCOSE THREE TIMES DAILY WITH MEALS blood-glucose meter (FreeStyle Lite Meter kit) check glucose TID with meals cetirizine 10 mg PO DAILY docusate sodium (Colace) 100 mg PO DAILY ergocalciferol (vitamin D2) 1,250 mcg PO QWEEK 90 days famotidine 20 mg PO DAILY fexofenadine-pseudoephedrine 60-120 mg ER (Belem-D 12 Hour) 1 tab PO Q12H PRN lancets (FreeStyle Lancets) USE 1 LANCET DIRECTED TO CHECK BLOOD GLUCOSE THREE TIMES DAILY WITH MEALS lancing device check glucose TID with meals levothyroxine 75 mcg PO DAILY metformin ER (Glucophage XR) 500 mg PO BID 90 days montelukast 10 mg PO DAILY multivitamin 1 tab PO DAILY ondansetron HCl 4 mg PO Q8H PRN semaglutide 2 mg (0.75 mL) subcut QWEEK 4 weeks triamterene-hydrochlorothiazid 75-50 mg 1 tab PO DAILY Tobacco use date assessed: 11/13/24 Dental Screening Dental Screen Date: 08/12/24 HPI 2 months HPI Details The patient is a 60-year-old female presenting for a follow-up on her type 2 diabetes mellitus and A1C results. She was diagnosed with diabetes in October and was started on Ozempic, which she now takes at the maximum dose of 2 mg. Since October, she has lost 32 pounds and her hemoglobin A1c has improved to 5.9%. She reports side effects from her diabetes medications, including nausea, occasional vomiting, and significant constipation requiring a daily stool softener. She is also on metformin 500 mg b.i.d.. 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 This diagnosis was previously considered to be sarcoidosis. She has an upcoming appointment with the lab associate on the but has had difficulty scheduling the required blood work. The patient reports having nasal congestion and post-nasal drip for over two months without any discolored discharge. She also notes persistent tachycardia, with a pulse rate in the high 90s to low 100s. She has a history of hypertension and was taking lisinopril, but has not been taking it recently due to improved blood pressure readings with her weight loss. There is a family history of diabetes and hypertension leading to kidney failure and dialysis in her father. Social History - Employment: Works at a [employer]. - Exercise: Reports she is not athletic and does not work out. - Weight Management: Has lost 32 pounds since October with the help of Ozempic. - Surgical history related to weight man agement: Has decided against bariatric surgery. [facility] Medical History (Updated 02/11/25 @ 16:42 by Keesha Sanchez PA-C) Healthcare maintenance Sinus tachycardia Chronic sinusitis COVID-19 Hypothyroidism Other fatigue Encounter for screening for osteoporosis Encounter for screening for other suspected endocrine disorder Contact dermatitis Type 2 diabetes mellitus with hemoglobin A1c goal of less than 7.0% Hypertriglyceridemia Hypercholesteremia Hyperlipidemia LDL goal <100 Prediabetes Morbid obesity with BMI of 45.0-49.9, adult Sciatica Degenerative joint disease GERD (gastroesophageal reflux disease) Elevated blood sugar Hyperlipidemia IgG4 related disease Sarcoidosis Essential hypertension Allergic rhinitis Acquired hypothyroidism Surgical History Hx of eye surgery Hx of bladder endoscopy History of colonoscopy (~02/28/19) Family History Mother Diabetes Hypertension Father No problems noted. Social History Housing: House Alcohol intake: current Alcohol intake frequency: holidays/special occasions only Patient Tobacco Use Status: Never used Tobacco e-Cigarette/Vaping Use: Never Used Second Hand Smoke Exposure: No service: No Current occupational status: employed Cognitive needs: No Hearing needs: No Vision needs: Yes (Glasses) Questionnaire PHQ-9 Over the last 2 weeks, how often have you been bothered by any of the following problems? 1. Little interest or pleasure in doing things: not at all 2. Feeling down, depressed, or hopeless: not at all 3. Trouble falling or staying asleep, or sleeping too much: not at all 4. Feeling tired or having little energy: not at all 5. Poor appetite or overeating: not at all 6. Feeling bad about yourself - or that you are a failure or have let yourself or your family down: not at all 7. Trouble concentrating on things, such as reading the newspaper or watching television: not at all 8. Moving or speaking so slowly that other people could have noticed. Or the opposite - being so fidgety or restless that you have been moving around a lot more than usual: not at all 9. Thoughts that you would be better off or of hurting yourself in some way: not at all Total score: 0 Depression Screening Interpretation: Negative Depression Screening Done: Yes 83433 - PHQ-9 Billing: Yes Source: Developed by Drs. Slade Cartwright, Soraya Maldonado, Luis Miguel Ames and colleagues, with an educational mera from [employer]. Thrive Questionnaire Date Thrive assessed: 10/17/24 I am a: Patient What is your living situation today?: I have a steady place to live Within the past 12 months, did the food you bought not last and you didn't have the money to get more?: Never true Within the past 12 months, did you worry whether your food would run out before you got money to buy more?: Never true Do you have trouble paying for medicines?: No Do you have trouble getting transportation to medical appointments?: No Do you have trouble paying your heating and electricity bill?: No Do you have trouble taking care of your child, family member or friend?: No Do you have trouble with day-to-day activities such as bathing, preparing meals, shopping, managing finances, etc.?: No Are you currently unemployed and looking for a job?: No Are you interested in more education?: No Please select the resources that you would like help with: None Currently or been in a relationship where the following occur: No concerns reported THRIVE Score: 0 AUDIT C Alcohol Use Questionnaire (AUDIT-C) 1. How often do you have a drink containing alcohol?: Never 3. How often do you have six or more drinks on one occasion?: Never Total Score: 0 Score Reviewed/Action Taken: Yes (Reviewed) LUCIEN-7 AMB Questionnaire LUCIEN-7 Date LUCIEN - 7 assessed: 10/17/24 Feeling nervous, anxious, or on edge: 0 = Not at all Not being able to stop or control worryin = Not at all Worrying too much about different things: 0 = Not at all Trouble relaxin = Not at all Being so restless that it is hard to sit still: 0 = Not at all Becoming easily annoyed or irritable: 0 = Not at all Feeling afraid as if something awful might happen: 0 = Not at all Total LUCIEN-7 score (0-4 normal; 5-9 mild; 10-14 moderate; 15-21 severe): 0 Source: Developed by Drs. Slade Cartwright, Soraya Maldonado, Luis Miguel Ames and colleagues, with an educational mera from [employer]. LUCIEN-7 Assessment Billing LUCIEN-7 Assessment Tool: LUCIEN-7 Assessment 79719 Review of Systems Const Details: - Constitutional: Reports significant weight loss of 32 pounds since October. - Eyes: Reports swelling on the right side. - ENT: Reports nasal congestion for over two months with associated post-nasal drip. - Denies discolored nasal discharge. - Reports a history of nosebleeds with a particular nasal spray. - Cardiovascular: Reports an elevated pulse rate in the high 90s to low 100s. - Denies feeling as if her heart is racing. - Gastrointestinal: Reports nausea, occasional vomiting, and constipation. All systems reviewed & are unremarkable except as noted in HPI and below Physical exam (Primary Care) Vital Signs: Last Vital Signs Temp 97.6 F 02/11/25 15:18 Pulse 100 02/11/25 15:18 Resp 16 02/11/25 15:18 BP 108/71 02/11/25 15:18 Pulse Ox 97 02/11/25 15:18 Oxygen Delivery Method Room Air 02/11/25 15:18 Care Plan Goal for BP management: <140/90 at Goal BMI result Body Mass Index 42.2 Tobacco/Smoking Status: Tobacco use Status Tobacco use date assessed 11/13/24 02/11/25 15:21 Patient Tobacco Use Status Never used Tobacco 02/11/25 15:21 e-Cigarette/Vaping Use Never Used 02/11/25 15:21 PHQ-9: PHQ-9 Score PHQ-9: Total score 0 02/11/25 15:53 Depression Screening Interpretation: Negative Thrive Assessment: Date of Thrive Assessment Date Thrive assessed 10/17/24 02/11/25 15:21 Currently or been in a relationship where the following occur: No concerns reported Const Other: Appearance: Alert. Oriented X3. No acute distress. Head: Normal external exam. Normocephalic. Atraumatic. Right eye appears slightly swollen. Eyes: Pupils are equal, round, and reactive to light. Extraocular movements intact. Conjunctiva and sclera normal. Eyelids normal. Throat: Pharynx normal. Uvula midline. Moist mucous membranes. Neck: Normal inspection. Neck supple. Full range of motion. Cardiovascular: Normal heart rate and rhythm. Heart sound normal. No murmurs noted. Pulses normal throughout. Respiratory: No respiratory distress. Painless inspiration. Back: Full range of motion noted. Skin: Skin warm and dry. Normal skin color. Normal skin turgor. No r ashes/lesions/lacerations noted. Extremities: Extremities exhibit normal range of motion. Neuro: Oriented X 3. No motor deficit. No sensory deficit. Reflexes normal. Results AMB Hemoglobin A1c AMB Hemoglobin A1c 5.9 % Last Edit by KARRI Hi on 02/11/25 15:53 Results Reviewed Results Reviewed: Laboratory Last Values Hgb A1c (Clinic) 5.9 % (4.0-6.0) 02/11/25 15:42 - Labs: Hemoglobin A1c is 5.9%. Coding Level of Care Code Est Pt Level 4 (77778) Complex EM visit Add On G2211 Diagnoses Type 2 diabetes mellitus with hemoglobin A1c goal of less than 7.0% E11.9 IgG4 related disease D89.84 Chronic sinusitis J32.9 Sinus tachycardia R00.0 Essential hypertension I10 Healthcare maintenance Z00.00 Additional Codes LUCIEN-7 Assessment Billing - LUCIEN-7 Assessment Tool: LUCIEN-7 Assessment 34743 ([id number]) PHQ-9 - 54084 - PHQ-9 Billing: Yes ([id number]) Time Spent (min) 60 Assessment & Plan Assessment & Plan (1) Type 2 diabetes mellitus with hemoglobin A1c goal of less than 7.0%: Code(s): E11.9 - Type 2 diabetes mellitus without complications Category: Medical Plan: The patient's A1c has improved to 5.9%, placing her in the prediabetic range. She will continue taking Ozempic 2 mg weekly. To address her constipation, the plan is to decrease the metformin dose to once daily to see if symptoms improve, as semaglutide can also cause constipation. She may continue using Colace and MiraLAX as needed. A 90-day prescription for metformin with three refills will be sent. (2) IgG4 related disease: Comment: She has right lacrimal gland involvement confirmed on biopsy 05/2024 with persistent chronic dry mouth. Right ocular swelling, submandibular, cervical and mediastinal lymphadenopathy, bumps on hard palate and pulmonary nodule res olved with prednisone course. In setting of recent URI she has had slight recurrence of left submandibular node enlargement and discomfort. We discussed workup for IgG4 related disease when she has completely recovered from URI (approximately next week). She has not had any reoccurrence of ocular swelling. We discussed diagnosis of IgG4 related disease and the possibility that it can involve multiple organs. In her case we have confirmed involvement of the right lacrimal gland. Lymphadenopathy and salivary gland involvement is likely part of patient's initial manifestation. At this time immunosuppressive therapy is not indicated. We discuss monitoring submandibular/ cervical lymph node enlargement with considering repeating imaging if there is growth after she recovers fully from URI. Patient agrees with plan. Code(s): D89.84 - IgG4-related disease Category: Medical Plan: The patient has been having difficulty scheduling the extensive blood work ordered by her lab associate for her recent diagnosis of IgG4-related disease. To facilitate this, a printed copy of the lab orders was provided, with the recommendation to go to a [facility] facility for the blood draw. The patient was advised to ensure the results are faxed to her lab associate before her upcoming appointment. (3) Chronic sinusitis: Code(s): J32.9 - Chronic sinusitis, unspecified Category: Medical Plan: For her persistent nasal congestion, the plan is to switch from cetirizine to Belem, taken every 12 hours. A prescription for Augmentin will be sent to have on hand, which she can take for her sinus symptoms after her rheumatology blood work is completed. She will continue to use saline sprays and a neti pot for nasal irrigation. (4) Sinus tachycardia: Code(s): R00.0 - Tachycardia, unspecified Category: Medical Plan: The patient's elevated heart rate was noted, but a beta-mode was deemed inappropriate at this time due to her kzhqjp-mb-wsh blood pressure and the medication's potential to cause hypotension. The plan is to monitor this, as it may improve with continued weight loss. (5) Essential hypertension: Code(s): I10 - Essential (primary) hypertension Category: Medical Plan: The patient has not been taking her lisinopril due to improved blood pressure readings with weight loss. The lisinopril prescription will be discontinued. She will continue monitoring her blood pressure at home and report if it becomes elevated. (6) Healthcare maintenance: Code(s): Z00.00 - Encounter for general adult medical examination without abnormal findin gs Category: Medical Plan: A follow-up visit is scheduled in three months. This visit will likely serve as her annual exam, and she will be due for routine blood work (CBC, CMP). To avoid confusion at the lab, she was instructed to call the office to have the annual lab work ordered after she completes the blood draws for her lab associate. Plan Plan Patient was informed and verbally consented to the use of an ambient scribe for clinic note documentation during this visit. 1. Type 2 Diabetes Mellitus The patient's A1c has improved to 5.9%, placing her in the prediabetic range. She will continue taking Ozempic 2 mg weekly. To address her constipation, the plan is to decrease the metformin dose to once daily to see if symptoms improve, as semaglutide can also cause constipation. She may continue using Colace and MiraLAX as needed. A 90-day prescription for metformin with three refills will be sent. 2. Igg4-Related Disease The patient has been having difficulty scheduling the extensive blood work ordered by her lab associate for her recent diagnosis of IgG4-related disease. To facilitate this, a printed copy of the lab orders was provided, with the recommendation [facility] draw. The patient was advised to ensure the results are faxed to her lab associate before her upcoming appointment. 3. Chronic Sinusitis For her persistent nasal congestion, the plan is to switch from cetirizine to Belem, taken every 12 hours. A prescription for Augmentin will be sent to have on hand, which she can take for her sinus symptoms after her rheumatology blood work is completed. She will continue to use saline sprays and a neti pot for nasal irrigation. 4. Sinus Tachycardia The patient's elevated heart rate was noted, but a beta-mode was deemed inappropriate at this time due to her etehyj-tb-pep blood pressure and the medication's potential to cause hypotension. The plan is to monitor this, as it may improve with continued weight loss. 5. Hypertension The patient has not been taking her lisinopril due to improved blood pressure readings with weight loss. The lisinopril prescription will be discontinued. She will continue monitoring her blood pressure at home and report if it becomes elevated. 6. Health Maintenance A follow-up visit is scheduled in three months. This visit will likely serve as her annual exam, and she will be due for routine blood work (CBC, CMP). To avoid confusion at the lab, she was instructed to call the office to have the annual lab work ordered after she completes the blood draws for her lab associate. I reviewed the patient's recent A1c of 5.9%, congratulating her on the improvement and her 32-pound weight loss. We discussed that she should continue the Ozempic 2mg and try reducing her metformin to once daily to see if it alleviates her constipation, and I sent a refill for the metformin. I provided her with a printed copy of the lab orders from her lab associate to facilitate getting the blood work done at [facility] and advised her to ensure the results are sent to the specialist. We addressed her nasal congestion by prescribing Belem to replace her current antihistamine and also provided a prescription for Augmentin to be used only after her blood work is complete if symptoms warrant it. Regarding her tachycardia, I explained that while it is elevated, starting a beta-mode is not advisable due to her good blood pressure, and it may resolve with further weight loss. We agreed to cancel her lisinopril prescription as her blood pressure has normalized. A follow-up is scheduled in three months, and she will contact the office for her annual lab orders after her current tests are done. Orders: Orders AMB Hemoglobin A1c Today E11.9 - Type 2 diabetes mellitus without complications Medications: New fexofenadine-pseudoephedrine 60-120 mg ER (Belem-D 12 Hour) 1 tab PO Q12H PRN 30 tabs 3RF allergy symptoms amoxicillin-pot clavulanate 875-125 mg 1 tab PO BID 20 tabs 0RF 10 days Refilled metformin ER (Glucophage XR) 500 mg PO BID 180 tabs 3RF 90 days E11.9 - Type 2 diabetes mellitus without complications Patient Instructions: - Continue taking Ozempic 2 mg weekly as directed. - To help with constipation, try taking your metformin dose just once a day. - A refill for metformin has been sent to your pharmacy. - Use the printed lab orders to get your blood tests done at a [facility]. - Make sure they fax the results to your lab associate. - For your nasal congestion, stop taking Cetirizine and start taking Belem every 12 hours. - An antibiotic (Augmentin) was ordered for you. - Do not take it until after you have had your blood tests for the lab associate. - You can stop taking your lisinopril blood pressure medicine for now. - Continue checking your blood pressure at home. - Please schedule a follow-up appointment in three months. - You will need to call our office to get the lab slip for your yearly blood work before your next visit.
== END 2025-02-11 16:11 | disposition home or self-care (01) ==
LOC: HO.HMCSH 15:12
PROVIDERS: PCP Physician Assistant Medical; Visit Provider Physician Assistant Medical
DX: E11.9 Type 2 diabetes mellitus without complications (principal); D89.84 IgG4-related disease; J32.9 Chronic sinusitis, unspecified; R00.0 Tachycardia, unspecified; I10 Essential (primary) hypertension; Z00.00 Encounter for general adult medical examination without abnormal findings

== ENCOUNTER → 2025-02-11 15:12 | Outpatient (BNVA) | payer OTHER, SELFPAY | PROVIDERS: PCP Physician Assistant Medical; Visit Provider Physician Assistant Medical | DX: Z00.00 Encounter for general adult medical examination without abnormal findings (principal); E11.9 Type 2 diabetes mellitus without complications; R00.0 Tachycardia, unspecified; R09.82 Postnasal drip; D89.84 IgG4-related disease; J32.9 Chronic sinusitis, unspecified; I10 Essential (primary) hypertension | CPT/HCPCS: 83036; 96127 ==

== ENCOUNTER 2025-02-17 06:52 | Outpatient (REF) | payer OTHER, SELFPAY ==
--- OUTSIDE RECORDS SUMMARY | 2025-02-17 06:56 | XMS_ITS | Clinical Summary ---
Author Organization [facility] ity Address [address] [place] [address] Care Team Providers Care Certified Pedorthotist Name Role Phone Unavailable Primary Care Provider [...] Depression Screening 04/09/2024 COVID-19 Vaccine (1 - 2024-2 6 season) 2024 Influenza Vaccine (#1) 2024 RSV [...]
[2025-02-17 07:06] LABS: MANUAL DIFF FLAG NO
[2025-02-17 07:15] LABS: Hematocrit 40.1 % (37.0-47.0); Hemoglobin 13.6 g/dl (12.0-16.0); Imm Gran Abs Auto 0.02 X10*3/uL (0.00-0.03); Imm Gran Pct Auto 0.2 % (0.0-0.4); Lymphocytes Absolute Auto 2.4 X10*3/uL (1.2-4.9); Mean Corpuscular HGB Conc 33.9 g/dl (31.0-35.0); Mean Corpuscular Hemoglobin 31.1 pg (27.0-33.0); Mean Corpuscular Volume 91.8 fL (80.0-98.0); NRBC Abs Auto 0.000 X10*3/uL (0.0-0.012); NRBC Pct Auto 0.0 /100WBC (0.0-0.2); Platelet Count 343 X10*3/uL (160-400); Red Blood Count 4.37 X10*6/uL (4.20-5.50); White Blood Count 8.2 X10*3/uL (4.8-10.8)
[2025-02-17 07:46] LABS: Alanine Aminotransferase 16 U/L (0-31); Aspartate Amino Transferase 26 U/L (5-31); Estimated Glomerular Filt Rate 59
[2025-02-17 07:46] LABS: Appearance Urine Clear; Glucose Urine UA Negative (Negative); PH 5.0 (5.0-9.0); Specific Gravity - Urine 1.015 (1.005-1.025)
[2025-02-17 08:05] LABS: HBS Num1 0.00 mIU/mL (0-7.99); HBc Num1 0.04 S/CO (0.00-0.79); HBsAGNum1 0.29 S/CO (0.00-0.99); Hepatitis B Surface Antigen Negative (Negative); ~HepC Num1 0.06 S/CO (0.00-0.79); ~Hepatitis B Surface Antibody NONREACTIVE (Nonreactive); ~Hepatitis C Antibody Nonreactive (Nonreactive)
[2025-02-18 22:24] LABS: Antibody to SS-A Antigen <1.0 NEG AI (<1.0 NEG); Antibody to SS-B Antigen <1.0 NEG AI (<1.0 NEG)
[2025-02-19 11:28] LABS: Immunoglobulin G Subclass 1 446 mg/dL (382-929); Immunoglobulin G Subclass 2 206 mg/dL (241-700); Immunoglobulin G Subclass 3 41 mg/dL (22-178); Immunoglobulin G Subclass 4 86.3 mg/dL (4-86); Immunoglobulin G Total 820 mg/dL (600-1640)
[2025-02-20 09:34] LABS: TS Negative Control Passed; TS Panel A 0; TS Panel B 0; TS Positive Control Passed; TSpotTB Negative (Negative)
[2025-02-20 22:59] LABS: Prot Elec - Albumin 3.9 g/dL (3.8-4.8); Prot Elec - Alpha1 0.3 g/dL (0.2-0.3); Prot Elec - Alpha2 0.9 g/dL (0.5-0.9); Prot Elec - Beta 1 0.4 g/dL (0.4-0.6); Prot Elec - Beta 2 0.4 g/dL (0.2-0.5); Prot Elec - Gamma 0.8 g/dL (0.8-1.7); Prot Elec - Total Protein 6.7 g/dL (6.1-8.1)
[2025-02-27 14:57] LABS: IgE Antibody (Anti-IgE IgG) <6 ng/mL (<168)
== END 2025-02-17 06:53 | disposition home or self-care (01) ==
LOC: HO.LAB 06:52
PROVIDERS: PCP Internal Medicine; Visit Provider Internal Medicine Rheumatology
DX: Z11.1 Encounter for screening for respiratory tuberculosis (principal); D89.84 IgG4-related disease; Z79.899 Other long term (current) drug therapy
CPT/HCPCS: 36415; 81001; 82565; 82784; 83520; 84165; 84450; 84460; 85025; 85652; 86140; 86235; 86481; 86704; 86706; 86803; 87340

== ENCOUNTER 2025-02-26 14:31 | Outpatient (AMB) | payer OTHER, SELFPAY ==
[2025-02-26 14:36] VITALS: BP 110/70; PULSE 108; O2SAT 98; BMI 41.2
--- NOTE | 2025-02-26 14:36 | MHC.OFFVIS ---
Vital Signs 02/26/25 14:36 Height 5 ft 4 in Weight 239 lb 13.807 oz BMI 41.2 BP 110/70 Blood Pressure Location Rt brachial Position Sitting Pulse 108 H Pulse Source Pulse Oximeter Pulse Oximetry (%) 98 Oxygen Delivery Method Room Air Intake Visit Reasons: Review results Intake Note: New Patient presents today for sacrodosis. Accompanied by: Self / Same As Patient Allergies No Known Allergies Allergy (Verified 02/26/25 14:36) HPI HPI Review results: Details: Dry mouth is uncontrolled. She is experiencing bad order from her mouth leading to nausea and vomiting. She has low appetite. She is using Biotene lozenges and XyliMelts. She continues to have nasal congestion with postnasal drip. She was recently treated with Augmentin for possible infection. Most recently in the last 3 weeks she has been experiencing ear fullness with hearing loss intermittently. No ear pain or fevers. No new ocular swelling. Lymph node enlargement has resolved. PFSH Medical History Healthcare maintenance Sinus tachycardia Chronic sinusitis COVID-19 Hypothyroidism Other fatigue Encounter for screening for osteoporosis Encounter for screening for other suspected endocrine disorder Contact dermatitis Type 2 diabetes mellitus with hemoglobin A1c goal of less than 7.0% Hypertriglyceridemia Hypercholesteremia Hyperlipidemia LDL goal <100 Prediabetes Morbid obesity with BMI of 45.0-49.9, adult Sciatica Degenerative joint disease GERD (gastroesophageal reflux disease) Elevated blood sugar Hyperlipidemia IgG4 related disease Sarcoidosis Essential hypertension Allergic rhinitis Acquired hypothyroidism Surgical History Hx of eye surgery Hx of bladder endoscopy History of colonoscopy (~02/28/19) Family History Mother Diabetes Hypertension Father No problems noted. Social History Housing: House Alcohol intake: current Alcohol intake frequency: holidays/special occasions only Patient Tobacco Use Status: Never used Tobacco e-Cigarette/Vaping Use: Never Used Second Hand Smoke Exposure: No service: No Current occupational status: employed Cognitive needs: No Hearing needs: No Vision needs: Yes (Glasses) Physical Exam Exam Exam: General: Comfortable CVS: RRR Respiratory: clear to auscultation bilaterally. Good respiratory effort Skin: No lesions seen Oral: No cervical lymphadenopathy MSK: No tender joints. Normal range of motion of upper extremities. Knee flexion 90 degrees bilateral. No synovitis. Vital Signs: Last Vital Signs Pulse 108 H 02/26/25 14:36 BP 110/70 02/26/25 14:36 Pulse Ox 98 02/26/25 14:36 Oxygen Delivery Method Room Air 02/26/25 14:36 BMI result Body Mass Index 41.2 Assessment & Plan Assessment & Plan (1) IgG4 related disease: Comment: She has not had recurrence of ocular swelling. She is currently symptomatic with dry mouth exacerbated with her URI symptoms. Most recently in the last 3 weeks she has been experiencing right ear fullness with intermittent hearing loss. I have asked her to contact her PCP for further evaluation to rule out ear infection. Left submandibular node enlargement has resolved, which is reassuring and likely reactive in setting of a URI. We reviewed labs, which reveal mild elevation of IgG4 level 86.3 with normal limit less than 86. She has normal inflammatory markers without any other organ involvement at this time. She is clinically quiescent. Rheumatology history: Involving bilateral lacrimal glands, biopsy confirmed right lacrimal gland 05/2024 with associated chronic dry mouth, lymphadenopathy, bumps are hard palate and pulmonary nodule. Right ocular swelling, submandibular, cervical and mediastinal lymphadenopathy, bumps on hard palate and pulmonary nodule resolved with prednisone course. IgG4 86.3 mildly elevated. Clinically quiescent. Immunosuppressive therapy is not indicated at this time. CT orbits April 2024 reveal severely enlarged bilateral lacrimal glands with soft tissue densities adjacent to the gloves, focal posterior extension lateral to the right lateral rectus muscle and asymmetric prominence of the left cavernous sinus. Code(s): D89.84 - IgG4-related disease Category: Medical Plan: She will follow up with Dr. Braswell July 2026 Return to clinic 3 months PCP follow-up for evaluation of her persistent URI symptoms. We discussed trying nasal saline spray for conservative measures. Coding Level of Care Code Est Pt Level 4 (00187) Complex visit Add On G2211 Diagnoses IgG4 related disease D89.84
--- OUTSIDE RECORDS SUMMARY | 2025-02-26 19:55 | XMS_ITS | Clinical Summary ---
[facility] [address] [place] [address] Care Team Providers Care Traffic Or System Dispatcher Name Role Phone Unavailable Primary Care Provider [...]
== END 2025-02-26 15:20 | disposition home or self-care (01) ==
LOC: HO.RHES 14:32
PROVIDERS: PCP Internal Medicine; Visit Provider Internal Medicine Rheumatology
DX: D89.84 IgG4-related disease (principal)
CPT/HCPCS: 99214; G2211

== ENCOUNTER 2025-03-03 15:43 | Outpatient (AMB) | payer OTHER, SELFPAY ==
[2025-03-03 15:46] VITALS: BP 102/65; PULSE 100; RESP 16; TEMP 36.8; O2SAT 95; BMI 41.2
--- NOTE | 2025-03-03 15:46 | MHC.PC.OV ---
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 Required: No Accompanied by: Self / Same As Patient Allergies No Known Allergies Allergy (Verified 03/03/25 15:47) Tobacco use date assessed: 11/13/24 Dental Screening Dental Screen Date: 08/12/24 [facility] Medical History Healthcare maintenance Sinus tachycardia Chronic sinusitis COVID-19 Hypothyroidism Other fatigue Encounter for screening for osteoporosis Encounter for screening for other suspected endocrine disorder Contact dermatitis Type 2 diabetes mellitus with hemoglobin A1c goal of less than 7.0% Hypertriglyceridemia Hypercholesteremia Hyperlipidemia LDL goal <100 Prediabetes Morbid obesity with BMI of 45.0-49.9, adult Sciatica Degenerative joint disease GERD (gastroesophageal reflux disease) Elevated blood sugar Hyperlipidemia IgG4 related disease Sarcoidosis Essential hypertension Allergic rhinitis Acquired hypothyroidism Surgical History Hx of eye surgery Hx of bladder endoscopy History of colonoscopy (~07/29/24) Family History Mother Diabetes Hypertension Father No problems noted. Social History Housing: House Alcohol intake: current Alcohol intake frequency: holidays/special occasions only Patient Tobacco Use Status: Never used Tobacco e-Cigarette/Vaping Use: Never Used Second Hand Smoke Exposure: No service: No Current occupational status: employed Cognitive needs: No Hearing needs: No Vision needs: Yes (Glasses) Questionnaire PHQ-9 Over the last 2 weeks, how often have you been bothered by any of the following problems? 1. Little interest or pleasure in doing things: not at all 2. Feeling down, depressed, or hopeless: not at all 3. Trouble falling or staying asleep, or sleeping too much: not at all 4. Feeling tired or having little energy: not at all 5. Poor appetite or overeating: not at all 6. Feeling bad about yourself - or that you are a failure or have let yourself or your family down: not at all 7. Trouble concentrating on things, such as reading the newspaper or watching television: not at all 8. Moving or speaking so slowly that other people could have noticed. Or the opposite - being so fidgety or restless that you have been moving around a lot more than usual: not at all 9. Thoughts that you would be better off or of hurting yourself in some way: not at all Total score: 0 Depression Screening Interpretation: Negative Depression Screening Done: Yes 62740 - PHQ-9 Billing: Yes Source: Developed by Drs. Slade Cartwright, Soraya Maldonado, Luis Miguel Ames and colleagues, with an educational mera from [employer] Thrive Questionnaire Date Thrive assessed: 10/17/24 I am a: Patient What is your living situation today?: I have a steady place to live Within the past 12 months, did the food you bought not last and you didn't have the money to get more?: Never true Within the past 12 months, did you worry whether your food would run out before you got money to buy more?: Never true Do you have trouble paying for medicines?: No Do you have trouble getting transportation to medical appointments?: No Do you have trouble paying your heating and electricity bill?: No Do you have trouble taking care of your child, family member or friend?: No Do you have trouble with day-to-day activities such as bathing, preparing meals, shopping, managing finances, etc.?: No Are you currently unemployed and looking for a job?: No Are you interested in more education?: No Please select the resources that you would like help with: None Currently or been in a relationship where the following occur: No concerns reported THRIVE Score: 0 AUDIT C Alcohol Use Questionnaire (AUDIT-C) 1. How often do you have a drink containing alcohol?: Never 3. How often do you have six or more drinks on one occasion?: Never Total Score: 0 Score Reviewed/Action Taken: Yes (Reviewed) LUCIEN-7 AMB Questionnaire LUCIEN-7 Date LUCIEN - 7 assessed: 10/17/24 Feeling nervous, anxious, or on edge: 0 = Not at all Not being able to stop or control worryin = Not at all Worrying too much about different things: 0 = Not at all Trouble relaxin = Not at all Being so restless that it is hard to sit still: 0 = Not at all Becoming easily annoyed or irritable: 0 = Not at all Feeling afraid as if something awful might happen: 0 = Not at all Total LUCIEN-7 score (0-4 normal; 5-9 mild; 10-14 moderate; 15-21 severe): 0 Source: Developed by Drs. Slade Cartwright, Soraya Maldonado, Luis Miguel Ames and colleagues, with an educational mera from [employer] LUCIEN-7 Assessment Billing LUCIEN-7 Assessment Tool: LUCIEN-7 Assessment 42624 Physical exam (Primary Care) Tobacco/Smoking Status: Tobacco use Status Tobacco use date assessed 11/13/24 02/11/25 15:21 Patient Tobacco Use Status Never used Tobacco 02/11/25 15:21 e-Cigarette/Vaping Use Never Used 02/11/25 15:21 Depression Screening Interpretation: Negative Thrive Assessment: Date of Thrive Assessment Date Thrive assessed 10/17/24 02/11/25 15:21 Currently or been in a relationship where the following occur: No concerns reported Office Procedures Flu Questionnaire Does the patient have a severe egg allergy?: No Does the patient have severe life threatening allergies?: No Does the patient have a fever or illness today?: No Has the patient ever had Guillain-[place] Syndrome?: No Has the patient ever had any past reaction to a flu shot?: No Immunizations Fluarix [id number] (PF) 45 mcg (15 mcg x 3)/0.5 mL IM syringe Performing Provider: Bolivar Katz MD [facility] [place] [facility] Administered by: KARRI Hi on 03/03/25 15:55 Dose Route Admin Location Dispensed Lot Number Expiration Date [facility] Specialty Person 0.5 mL IM Left Deltoid 0.5 mL [id number] 10/06/25 76313-050-17 [employer] VIS Given Date VIS Provided VIS Publication Date 03/03/25 Single Vaccine 24 Eligibility Eligibility Date Funding Source Not [facility] Eligible 03/03/25 Private Coding Additional Codes PHQ-9 - 89439 - PHQ-9 Billing: Yes ([id number]) LUCIEN-7 Assessment Billing - LUCIEN-7 Assessment Tool: LUCIEN-7 Assessment 69272 ([id number]) Assessment & Plan Assessment & Plan Orders: Orders Influenza [id number] Immunization Today Z23 - Encounter for immunization
--- OUTSIDE RECORDS SUMMARY | 2025-03-03 19:11 | XMS_ITS | Clinical Summary ---
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
== END 2025-03-03 16:14 | disposition home or self-care (01) ==
LOC: HO.HMCSH 15:43
PROVIDERS: PCP Internal Medicine; Visit Provider Internal Medicine
DX: Z23 Encounter for immunization (principal)

== ENCOUNTER → 2025-03-03 15:43 | Outpatient (BNVA) | payer OTHER, SELFPAY | PROVIDERS: PCP Internal Medicine; Visit Provider Internal Medicine | DX: D89.84 IgG4-related disease (principal); R09.82 Postnasal drip; Z23 Encounter for immunization | CPT/HCPCS: 90471; 90656; 96127 ==